=== PATIENT | female | born 1940 | race Caucasian/White ===

== ENCOUNTER → 2021-04-04 10:08 | Outpatient (BNVA) | payer MEDICARE, MEDICAID, SELFPAY | PROVIDERS: PCP Internal Medicine; Referring Provider Internal Medicine; Visit Provider Internal Medicine Cardiovascular Disease | DX: Z45.018 Encounter for adjustment and management of other part of cardiac pacemaker (principal) | CPT/HCPCS: 93005; 99212 ==

== ENCOUNTER 2022-04-25 10:53 | Outpatient (REF) | payer MEDICARE, MEDICAID, SELFPAY ==
[2022-04-25 11:10] LABS: MANUAL DIFF FLAG NO
[2022-04-25 11:18] LABS: Basophils Percent Auto 0.4 % (0-2); Eosinophils Absolute Auto 0.2 X10*3/uL (0.0-0.4); Eosinophils Percent Auto 1.7 % (0-4); Hematocrit 39.9 % (37.0-47.0); Hemoglobin 12.4 g/dl (12.0-16.0); Imm Gran Abs Auto 0.04 X10*3/uL (0.00-0.03); Imm Gran Pct Auto 0.4 % (0.0-0.4); Lymphocytes Absolute Auto 1.2 X10*3/uL (1.2-4.9); Lymphocytes Percent Auto 10.7 % (20-40); Mean Corpuscular HGB Conc 31.1 g/dl (31.0-35.0); Mean Corpuscular Hemoglobin 28.9 pg (27.0-33.0); Mean Platelet Volume 8.9 fL (9.4-12.3); Monocytes Absolute Auto 0.6 X10*3/uL (0.1-1.2); Monocytes Percent Auto 5.7 % (2-11); Neutrophils Absolute Auto 8.8 x10*3/uL (2.0-8.3); Neutrophils Percent Auto 81.1 % (45-73); Platelet Count 293 X10*3/uL (160-400); Red Blood Count 4.29 X10*6/uL (4.20-5.50); Red Cell Distribution Width 13.3 % (11.0-16.0); White Blood Count 10.8 X10*3/uL (4.8-10.8)
[2022-04-25 11:54] LABS: Anion Gap 11 (12-20); Blood Urea Nitrogen 18 mg/dL (9-16); Calcium 9.3 mg/dL (8.4-10.2); Carbon Dioxide 24 mmol/L (22-29); Chloride 104 mmol/L (96-108); Cholesterol 264 mg/dL; Estimated Glomerular Filt Rate > 60; Glucose Random 252 mg/dL (60-115); HDL Cholesterol 64 mg/dL; LDL Cholesterol Calculated 168 mg/dl; Potassium 3.3 mmol/L (3.3-5.1); Sodium 136 mmol/L (135-145); Triglycerides 161 mg/dL
[2022-04-25 12:03] LABS: TSH reflex Free T4 4.57 uIU/mL (0.32-4.0)
[2022-04-25 12:44] LABS: Free T4 (Free Thyroxine) 1.07 ng/dL (0.71-1.85)
== END 2022-04-25 10:54 | disposition home or self-care (01) ==
LOC: HO.LAB 10:53
PROVIDERS: PCP Internal Medicine; Visit Provider Nurse Practitioner Family
DX: E78.00 Pure hypercholesterolemia, unspecified (principal); J45.909 Unspecified asthma, uncomplicated; I10 Essential (primary) hypertension; E03.9 Hypothyroidism, unspecified
CPT/HCPCS: 36415; 80048; 80061; 84439; 84443; 85025

== ENCOUNTER → 2023-09-15 23:59 | Outpatient (BNV) | payer MEDICARE, MEDICAID, SELFPAY ==
--- NOTE | 2023-09-21 08:29 | A.OFFVIS_ITS ---
Intake Intake Visit Reasons: Remote Device Check- [employer] Allergies benztropine [From Cogentin] Allergy (Mild, Verified 04/28/23 11:05) UNKNOWN cogentin Allergy (Unknown, Uncoded 04/28/23 11:05) Unknown [facility] Medical History Asthma Bipolar disorder Cardiac pacemaker in situ Complete heart block Essential hypertension Hypercholesterolemia Impaired glucose tolerance Osteoporosis Peripheral vascular disease Rheumatoid arthritis Surgical History H/O right knee surgery History of cataract surgery History of permanent cardiac pacemaker placement Hx of colonoscopy Hx of elbow surgery Hx of tonsillectomy Family History Father No problems noted. Mother CVD (cardiovascular disease) Arthritis Social History Alcohol intake: never Patient Tobacco Use Status: Never used Tobacco Cognitive needs: Yes (wheelchair) Hearing needs: No Vision needs: No Office Procedures Cardiac Device Check Cardiac Device Check Details: Remote pacemaker report generated 09/15/2023. Pacemaker function is adequate. Patient ventricularly pacer dependent [id number] Cardiac Device Interrogation, pacemaker Procedure code (CPT) selection complete Coding Level of Care Code Procedure Only CPT Codes Cardiac Device Check - Cardiac Device 12: [id number] Cardiac Device Interrogation, pacemaker ([id number])
== END ==
PROVIDERS: PCP Internal Medicine; Visit Provider Internal Medicine Cardiovascular Disease
DX: I44.2 Atrioventricular block, complete (principal); Z95.0 Presence of cardiac pacemaker
CPT/HCPCS: 93294

== ENCOUNTER → 2023-12-16 23:59 | Outpatient (BNV) | payer MEDICARE, MEDICAID, SELFPAY ==
--- NOTE | 2023-12-16 12:59 | MHC.OFFVIS ---
Intake Intake Visit Reasons: Remote Device Check- [employer] Allergies benztropine [From Cogentin] Allergy (Mild, Verified 04/28/23 11:05) UNKNOWN cogentin Allergy (Unknown, Uncoded 04/28/23 11:05) Unknown [facility] Medical History Asthma Bipolar disorder Cardiac pacemaker in situ Complete heart block Essential hypertension Hypercholesterolemia Impaired glucose tolerance Osteoporosis Peripheral vascular disease Rheumatoid arthritis Surgical History H/O right knee surgery History of cataract surgery History of permanent cardiac pacemaker placement Hx of colonoscopy Hx of elbow surgery Hx of tonsillectomy Family History Father No problems noted. Mother CVD (cardiovascular disease) Arthritis Social History Alcohol intake: never Patient Tobacco Use Status: Never used Tobacco Cognitive needs: Yes (wheelchair) Hearing needs: No Vision needs: No Office Procedures Cardiac Device Check Cardiac Device Check Details: Remote pacemaker report generated 12/16/2023. Pacemaker function is adequate. Patient is ventricularly pacer dependent [id number] Cardiac Device Interrogation, pacemaker Procedure code (CPT) selection complete Assessment & Plan Assessment & Plan (1) Cardiac pacemaker in situ: Code(s): Z95.0 - Presence of cardiac pacemaker Plan: See above Coding Level of Care Code Procedure Only Diagnoses Cardiac pacemaker in situ Z95.0 CPT Codes Cardiac Device Check - Cardiac Device 12: [id number] Cardiac Device Interrogation, pacemaker ([id number])
== END ==
PROVIDERS: PCP Internal Medicine; Visit Provider Internal Medicine Cardiovascular Disease
DX: I44.2 Atrioventricular block, complete (principal); Z95.0 Presence of cardiac pacemaker
CPT/HCPCS: 93294

== ENCOUNTER 2024-03-12 09:23 | Inpatient (IN) | payer MEDICARE, MEDICAID, SELFPAY ==
[2024-03-12] VITALS (15 sets, daily range): BP systolic 40–168; BP diastolic 23–94; PULSE 71–113; RESP 12–18; TEMP 36.1–36.8; O2SAT 83–100; BMI 17.6
--- NOTE | ~2024-03-12 | CT_ITS ---
EXAMINATION: CT KNEE WITHOUT CONTRAST, LEFT CLINICAL INFORMATION: Left knee pain. Question tibial fracture. COMPARISON: Radiographs of the knee from 03/12/2024 TECHNIQUE: Noncontrast multidetector CT imaging examination focused on the left knee is performed. The axial images and multiplanar reformatted images are reviewed. This CT examination was performed using dose optimization techniques as appropriate, variously including the following: *Automated exposure control *Adjustment of mA and/or kV according to patient size (this includes techniques or standardized protocols for targeted exams where dose is matched to indication/reason for exam; i.e. extremities or head) *Use of iterative reconstruction technique DLP: 213 mGy-cm FINDINGS: Bones are diffusely osteoporotic. Acute, mildly comminuted, mildly depressed fracture of lateral tibial plateau. There is approximately 0.5 cm of depression of the plateau surface at the lateral third of the lateral plateau with identification of fracture lines disrupting the metaphyseal cortex. Associated mildly comminuted, nondisplaced fracture of the fibular head and neck. Tibial fracture extends through the intercondylar eminence and into the articular surface at junction of the medial plateau and intercondylar eminence. Mild impaction of fragments through the region of proximal tibial growth plate as well as posteriorly, and there is mild overriding of tibial cortex at the posterior and medial aspect of the medial metaphysis. Moderate joint effusion with hemarthrosis. Patella is in normal position. No patellar fracture. Cruciate ligaments are grossly intact there are no displaced intra-articular bone fragments. A well-corticated ossific fragment at the posterior third of the medial tibial plateau is consistent with old injury. CT/CT knee LT wo IV con IMPRESSION: * Diffuse osteoporosis. * Acute comminuted fracture of proximal tibia involving medial and lateral tibial condyles/plateaus, moderate hemarthrosis, as well as nondisplaced mildly comminuted fracture of fibular head-neck. There is mild depression of the lateral plateau surface.
--- NOTE | ~2024-03-12 | XR_ITS ---
EXAMINATION: XR PELVIS CLINICAL INFORMATION: Fall COMPARISON: Pelvis x-ray from 2008 TECHNIQUE: AP view of the pelvis. FINDINGS: No fracture. Hip joint spaces are maintained. Alignment is anatomic. Sacroiliac joints and pubic symphysis are normal. No abnormal soft tissue calcifications. Degenerative changes of the lower lumbar spine. XR/XR pelvis 1-2V IMPRESSION: No fracture or dislocation.
--- NOTE | ~2024-03-12 | CT_ITS ---
EXAMINATION: CT ANGIOGRAM OF THE CHEST WITH AND WITHOUT CONTRAST (CT PULMONARY ANGIOGRAM FOR PE) CLINICAL INFORMATION: Shortness of breath. COMPARISON: Chest radiograph dated 03/12/2024. TECHNIQUE: Prior to contrast administration, noncontrast localization images were obtained. Subsequently, multidetector volumetric imaging was performed from the thoracic inlet to below the diaphragms following the administration of 65 mL Omnipaque 350 intravenous contrast. No contrast reaction reported Sagittal, coronal, and MIP oblique sagittal reformatted images were obtained on the CT workstation, uploaded to PACS, and reviewed. This CT examination was performed using dose optimization techniques as appropriate, variously including the following: *Automated exposure control *Adjustment of mA and/or kV according to patient size (this includes techniques or standardized protocols for targeted exams where dose is matched to indication/reason for exam; i.e. extremities or head) *Use of iterative reconstruction technique Total exam dose-length product 200 mGy-cm FINDINGS: QUALITY OF STUDY/CONTRAST BOLUS: Satisfactory. PULMONARY ARTERIES: No pulmonary emboli. THORACIC AORTA: No aneurysm or dissection is seen. There is moderate atherosclerotic calcification. LUNG: There is mild biapical pleural and parenchymal scarring. There is focal scar/subsegmental atelectasis at the posterior bases, right greater than left. No associated focal airway obstruction is seen. There is no nodule, mass, infiltrate or groundglass opacity. No generalized increase is seen in peripheral interlobular septal markings. There is mild small airway thickening. The central airways appear patent. PLEURA: No pleural effusion or pneumothorax. There is moderate right and mild left posterolateral pleural thickening, without focal mass noted. MEDIASTINUM: There is mild cardiomegaly. A pacemaker device is noted. No pericardial effusion. No hilar or mediastinal lymphadenopathy. No evidence of septal bowing or right heart strain. CORONARY ARTERY CALCIFICATION: None visualized on this study. CHEST WALL/AXILLA: No axillary or internal mammary lymphadenopathy. OSSEOUS STRUCTURES: There is marked thoracic dextroscoliosis. There is multi-level lower cervical, thoracic and upper lumbar degenerative disc disease and endplate arthropathy. No acute or aggressive osseous finding is noted. Orthopedic hardware is applied to the right elbow. UPPER ABDOMEN: The adrenal glands are unremarkable. A benign, simple appearing left parapelvic cyst is noted. No reflux of contrast into the hepatic veins to suggest elevated right heart pressures. CT/CT angio chest PE protocol IMPRESSION: 1. No pulmonary embolus is seen. There is no thoracic aortic aneurysm or dissection. 2. There are bilateral lower lobe foci of pleural and parenchymal scar/subsegmental atelectasis, right greater than left. No associated focal airway obstruction is seen. 3. No nodule, mass, infiltrate or groundglass opacity is seen. 4. There is mild small airway thickening, which can be associated with acute bronchiolitis or reactive airways disease. 5. No thoracic lymphadenopathy or pleural effusion is seen. 6. There are degenerative changes of the included spine. No aggressive osseous lesion is seen. VTE: negative
--- NOTE | ~2024-03-12 | XR_ITS ---
EXAMINATION: XR KNEE, LEFT CLINICAL INFORMATION: Fall COMPARISON: None available. TECHNIQUE: Two views of the left knee. FINDINGS: Exam limited due to patient positioning. There is valgus angulation. The bones are osteopenic. There is cortical step-off of the medial tibial metaphysis questionable for nondisplaced fracture. There is also increased sclerosis of the lateral tibial plateau and it is difficult to exclude lateral tibial plateau fracture. Joint spaces are normal. There is a small to moderate joint effusion. XR/XR knee LT 2V IMPRESSION: Question tibial fractures. Osteopenia. Valgus angulation. Small to moderate joint effusion..
--- NOTE | ~2024-03-12 | XR_ITS ---
EXAMINATION: XR ABDOMEN KUB CLINICAL INDICATION: Nausea and vomiting, rule out ileus COMPARISON: None available. TECHNIQUE: AP view of the abdomen. FINDINGS: There is no dilatation of large or small bowel. There is a large amount of stool within the descending and rectosigmoid colon. No unusual soft tissue calcifications are noted. Degenerative changes are seen in the lower lumbar spine. There is marked compression of the L2 vertebral body. There is linear density in the left lung base most likely representing atelectasis. XR/XR KUB IMPRESSION: No obstruction or ileus.
--- NOTE | ~2024-03-12 | XR_ITS ---
EXAMINATION: XR CHEST CLINICAL INFORMATION: Hypoxia COMPARISON: None available. TECHNIQUE: Frontal view of the chest was obtained. FINDINGS: The cardiac silhouette does not appear enlarged. Left subclavian pacemaker with leads projecting over the right atrium and right ventricle. The lungs are clear. No pleural effusion or pneumothorax. Degenerative changes of the spine and shoulders and scoliosis. XR/XR chest 1V IMPRESSION: No evidence for acute disease in the chest.
--- NOTE | 2024-03-12 09:45 | PC.NURSE ---
willyara from home d/t LLE pain. pt was moving out of her home today when she was walking out of the house, started having sudden onset 10/10 pain from left hip to left heel. pt also verbalizing numbness/tingling. pt's extremities contracted in nature baseline. pt states pain worsens w/ movement. family members lowered pt to the ground prior to calling EMS. no fall occurred. pt changed into hospital attire. no sob/wob noted. respirations even and unlabored. pt waiting to be seen by ED provider at this time. plan of care ongoing. call florence placed within reach.
[2024-03-12 10:45] LABS: MANUAL DIFF FLAG NO
[2024-03-12 10:55] LABS: Basophils Percent Auto 0.5 % (0-2); Eosinophils Absolute Auto 0.1 X10*3/uL (0.0-0.4); Eosinophils Percent Auto 1.1 % (0-4); Hematocrit 34.4 % (37.0-47.0); Hemoglobin 10.8 g/dl (12.0-16.0); Imm Gran Abs Auto 0.03 X10*3/uL (0.00-0.03); Imm Gran Pct Auto 0.4 % (0.0-0.4); Lymphocytes Absolute Auto 1.2 X10*3/uL (1.2-4.9); Lymphocytes Percent Auto 13.8 % (20-40); Mean Corpuscular HGB Conc 31.4 g/dl (31.0-35.0); Mean Corpuscular Hemoglobin 25.9 pg (27.0-33.0); Mean Corpuscular Volume 82.5 fL (80.0-98.0); Mean Platelet Volume 8.7 fL (9.4-12.3); Monocytes Absolute Auto 0.4 X10*3/uL (0.1-1.2); Neutrophils Absolute Auto 6.7 x10*3/uL (2.0-8.3); Neutrophils Percent Auto 79.2 % (45-73); Platelet Count 295 X10*3/uL (160-400); Red Blood Count 4.17 X10*6/uL (4.20-5.50); Red Cell Distribution Width 16.1 % (11.0-16.0); White Blood Count 8.4 X10*3/uL (4.8-10.8)
[2024-03-12 11:05] LABS: Alanine Aminotransferase 8 U/L (0-31); Albumin Level 3.7 g/dL (3.5-5.0); Alkaline Phosphatase 91 U/L (39-117); Anion Gap 12 (12-20); Aspartate Amino Transferase 17 U/L (5-31); Bilirubin Total 0.4 mg/dL (0.0-1.0); Blood Urea Nitrogen 14 mg/dL (9-16); Calcium 9.1 mg/dL (8.4-10.2); Carbon Dioxide 26 mmol/L (22-29); Chloride 109 mmol/L (96-108); Creatinine Clr Calc Pharmacy 39.5; Estimated Glomerular Filt Rate > 60; Glucose Random 95 mg/dL (60-115); Potassium 4.1 mmol/L (3.3-5.1); Sodium 143 mmol/L (135-145); Total Protein 7.1 g/dL (6.5-8.0)
--- NOTE | 2024-03-12 11:08 | ED_ITS ---
HPI - General Adult General Chief complaint: Extremity Injury, Lower Stated complaint: L LEG PAIN Time Seen by Provider: 03/12/24 10:53 Source: family (deborah herrmann ) Mode of arrival: ambulatory Limitations: no limitations History of Present Illness HPI narrative: 83 year old female hx cerebral palsy, complete heart block status post pacemaker in place, hypertension, RA, bipolar, asthma presents w/ deborah herrmann s/p witnessed fall on steps patient missed footing great niece behind her lowered her down. She sat on her left foot/ leg. Now reporting significant discomfort to L kene and L hip. Worse w/ movement better at rest. Reports intermittent tingling however denies numbness. No head strike or LOC. Not on thinenrs just asa. No cp, sob, nausea, vomiting, abd pain, headache, vission changes, dizziness, weakness or preceding sx to fall. Related Data Previous Rx's ?Medication ?Instructions ?Recorded fluticasone 250 mcg-salmeterol 50 1 ea inhalation BID #180 caps 04/25/22 mcg/dose blistr powdr for inhalation (Advair Diskus) albuterol sulfate 90 mcg/actuation 2 puff inhalation Q6H PRN for 05/27/22 aerosol inhaler muscle spasm #8.5 ea aspirin 81 mg tablet,delayed 81 mg PO DAILY #30 tabs 05/27/22 release diclofenac sodium 1 % topical gel 2 g topical QID #100 grams 04/28/23 (Voltaren Arthritis Pain) montelukast 10 mg tablet 10 mg PO DAILY #90 tabs 05/05/23 verapamil 180 mg tablet,extended 180 mg PO DAILY #180 tabs 02/10/24 release Allergies Allergy/AdvReac Type Severity Reaction Status Date / Time benztropine [From Cogentin] Allergy Mild UNKNOWN Verified 03/12/24 09:39 cogentin Allergy Unknown Unknown Uncoded 03/12/24 09:39 Review of Systems 2 Review of Systems: Yes all other systems are reviewed and are negative [facility] Past Medical History Attestation statement: The following information was validated with the patient. Source: old records reviewed and nursing notes reviewed Medical History Peripheral vascular disease Essential hypertension Impaired glucose tolerance Rheumatoid arthritis Hypercholesterolemia Osteoporosis Bipolar disorder Asthma Complete heart block Cardiac pacemaker in situ Surgical History History of cataract surgery H/O right knee surgery Hx of tonsillectomy Hx of elbow surgery Hx of colonoscopy History of permanent cardiac pacemaker placement Family History Family History Father No problems noted. Mother CVD (cardiovascular disease) Arthritis Social History Social History Alcohol intake: never Patient Tobacco Use Status: Never used Tobacco Smoked in Last 30 Days: No Use of substances other than those prescribed or required for medical reasons: No Advance Directives: No Advance Directives Information Provided: No Cognitive needs: Yes (wheelchair) Hearing needs: No Vision needs: No Physical Exam ED Vital Signs: Vital Signs - 24 hr 03/12/24 09:35 03/12/24 11:46 03/12/24 14:09 Temperature 98.0 F 98.2 F 97.9 F Pulse Rate 91 96 82 Respiratory Rate 16 18 18 Blood Pressure 154/78 H 120/72 124/82 Pulse Oximetry 95 94 89 L Oxygen Delivery Method Room Air Room Air Room Air Oxygen Flow Rate 03/12/24 15:03 03/12/24 15:05 03/12/24 15:10 Temperature Pulse Rate 105 H Respiratory Rate Blood Pressure 40/23 L 50/27 L 88/40 L Pulse Oximetry 83 L Oxygen Delivery Method Oxymask Oxygen Flow Rate 15 03/12/24 15:10 03/12/24 15:13 03/12/24 15:13 Temperature 97.0 F Pulse Rate 105 H 71 Respiratory Rate 12 14 Blood Pressure 88/40 L 87/46 L Pulse Oximetry 94 94 Oxygen Delivery Method Oxymask Oxymask Oxygen Flow Rate 11 11 03/12/24 15:40 03/12/24 15:41 Temperature Pulse Rate 97 87 Respiratory Rate 13 15 Blood Pressure 81/43 L 101/54 L Pulse Oximetry 98 98 Oxygen Delivery Method Oxymask Oxymask Oxygen Flow Rate 2 2 BMI result Body Mass Index 17.6 vss Appearance: Alert.? Oriented X3.? No acute distress.? Head: Normocephalic, atraumatic, no step-offs or deformities Eyes: Pupils equal, round and reactive to light.? Neck: Normal inspection.? Neck supple.? CVS: Normal heart rate and rhythm.? Pulses normal.? Respiratory: No respiratory distress.? Breath sounds normal.? Abdomen: Soft and nontender.? Skin: Skin warm and dry.? Normal skin color.? Normal skin turgor.? Extremities: No lower extremity edema.?No calf ttp. Global weakness. 2+ DP,AT,PT, and femoral pulses equal and b/l. Slight ecchymosis overlying left knee with ? small effusion. Normal sensation distally. Cap refil intact to b/l LE. Patients LE b/l contracted ( per family this is normal for patient). Back: No midline tenderness, no C-spine tenderness, full range of motion, no CVA tenderness bilaterally Neuro: Oriented X 3.? No motor deficit.? No sensory deficit. CN 2-12 intact Course Reevaluation(s) Reevaluation #1: CBC with a normocytic anemia. Chemistry unremarkable. Troponin 6.1. Time: 11:10 Reevaluation #2: Patient was screaming in pain after morphine IV fentanyl ordered Time: 13:20 Reevaluation #3: Patient had a few episodes of hypoxia, followed by profound hypotension, this could be secondary to morphine, therefore Narcan was given. X-ray of the pelvis no acute fractures. X-ray of the knee with question tibial fractures osteopenia and valgus angulation. Small to moderate joint effusion. CT dedicated to the knee ordered and pending. Chest x-ray pending. Time: 15:11 Additional Reevaluation(s): CT of the knee acute comminuted fracture proximal tibia involving medial and lateral tibial condyles and plateau, moderate arthrosis as well as nondisplaced mildly comminuted fracture of the fibular head/neck there is mild depression of the lateral plateau surface. Palpable pulses still. Patient doing much better after Narcan. I did send a tiger text out to Orthopedics. I do see challenges and applying an immobilizer as patient is contracted at baseline. Orthopedics recommends nonweightbearing and outpatient follow-up. I did repeated troponin on this patient given the episode of hypoxia and hypotension, troponin elevated 99.9 likely secondary to demand ischemia/type 2 injury. Will reach out to Cardiology to discuss. Discuss this case with cardiology Cardiology agrees this is likely demand ischemia. Also discussed this case with hospitalist who would feel more comfortable with CTA prior to admission. Patient will be admitted to the hospital and ortho can be consulted. Patient to be admitted Dr. Phillips will follow CTA Medications Administered Discontinued Medications Generic Name Dose Route Start Last Admin Trade Name Karen PRN Reason Stop Dose Admin Fentanyl 25 mcg 03/12/24 13:20 03/12/24 13:34 Fentanyl Citrate/Pf 100 Mcg/2 Ml Vial IVPUSH 03/12/24 13:21 25 mcg ONCE ONE Administration Protocol Lidocaine 1 patch 03/12/24 11:13 03/12/24 11:45 Lidocaine 4 % Patch Adh..Patch TRANSDERMA 03/12/24 11:14 1 patch ONCE ONE Administration Protocol Morphine Sulfate 15 mg 03/12/24 11:13 03/12/24 11:45 Morphine Sulfate Immed Release 15 Mg Tablet PO 03/12/24 11:14 15 mg ONCE ONE Administration Medical Decision Making Medical Decision Making [facility] Narrative: 1113 83-year-old female presents with complaints of left knee and hip pain status post mechanical fall. Physical exam No lower extremity edema.?No calf ttp. Global weakness. 2+ DP,AT,PT, and femoral pulses equal and b/l. Slight ecchymosis overlying left knee with ? small effusion. Normal sensation distally. Cap refil intact to b/l LE. Patients LE b/l contracted ( per family this is normal for patient). History and physical exam concerning for contusion versus sprain or strain. Will rule out fracture/dislocation. No signs of neurovascular compromise, threat to Mari, arterial or venous occlusion. No signs of traumatic injury to head, neck, chest, abdomen or pelvis. Plan imaging Differential Diagnosis Differential Diagnoses: The differential diagnosis associated with the presentation includes History and physical exam concerning for contusion versus sprain or strain. Will rule out fracture/dislocation. No signs of neurovascular compromise, threat to Mari, arterial or venous occlusion. No signs of traumatic injury to head, neck, chest, abdomen or pelvis. Admission/Observation Consideration of admission/observation: Escalation of care including admission/observation considered Lab Data [facility] Lab Attestation statement: I reviewed the patient's lab results. 03/12/24 10:42 03/12/24 10:42 Labs: Lab Results 03/12/24 03/12/24 03/12/24 Range/Units 10:42 14:45 14:51 WBC 8.4 (4.8-10.8) X10*3/uL RBC 4.17 L (4.20-5.50) X10*6/uL Hgb 10.8 L (12.0-16.0) g/dl Hct 34.4 L (37.0-47.0) % MCV 82.5 (80.0-98.0) fL MCH 25.9 L (27.0-33.0) pg MCHC 31.4 (31.0-35.0) g/dl RDW 16.1 H (11.0-16.0) % Plt Count 295 (160-400) X10*3/uL MPV 8.7 L (9.4-12.3) fL Immature Gran % (Auto) 0.4 (0.0-0.4) % Neut % (Auto) 79.2 H (45-73) % Lymph % (Auto) 13.8 L (20-40) % Mcclain % (Auto) 5.0 (2-11) % Eos % (Auto) 1.1 (0-4) % Baso % (Auto) 0.5 (0-2) % Lymph # (Auto) 1.2 (1.2-4.9) X10*3/uL Mcclain # (Auto) 0.4 (0.1-1.2) X10*3/uL Eos # (Auto) 0.1 (0.0-0.4) X10*3/uL Baso # (Auto) 0.0 (0.0-0.2) X10*3/uL Abs Immat Gran (auto) 0.03 (0.00-0.03) X10*3/uL Absolute Neuts (auto) 6.7 (2.0-8.3) x10*3/uL Absolute Nucleated RBC 0.000 (0.0-0.012) X10*3/uL Nucleated RBC % (auto) 0.0 (0.0-0.2) /100WBC Sodium 143 (135-145) mmol/L Potassium 4.1 (3.3-5.1) mmol/L Chloride 109 H (96-108) mmol/L Carbon Dioxide 26 (22-29) mmol/L Anion Gap 12 (12-20) BUN 14 (9-16) mg/dL Creatinine 0.74 (0.5-1.4) mg/dL Estim Creat Clear Calc 39.5 Estimated GFR > 60 POC Glucose 201 H (60-115) mg/dL Random Glucose 95 (60-115) mg/dL Calcium 9.1 (8.4-10.2) mg/dL Total Bilirubin 0.4 (0.0-1.0) mg/dL AST 17 (5-31) U/L ALT 8 (0-31) U/L Alkaline Phosphatase 91 (39-117) U/L Troponin I High Sens 6.1 (<3.5-17.0) ng/L Total Protein 7.1 (6.5-8.0) g/dL Albumin 3.7 (3.5-5.0) g/dL Influenza Type A (PCR) NEGATIVE (Negative) Influenza Type B (PCR) NEGATIVE (Negative) RSV RNA Qual (PCR) NEGATIVE (Negative) SARS-CoV-2 RNA (RT-PCR) NEGATIVE (Negative) 03/12/24 Range/Units 15:56 WBC (4.8-10.8) X10*3/uL RBC (4.20-5.50) X10*6/uL Hgb (12.0-16.0) g/dl Hct (37.0-47.0) % MCV (80.0-98.0) fL MCH (27.0-33.0) pg MCHC (31.0-35.0) g/dl RDW (11.0-16.0) % Plt Count (160-400) X10*3/uL MPV (9.4-12.3) fL Immature Gran % (Auto) (0.0-0.4) % Neut % (Auto) (45-73) % Lymph % (Auto) (20-40) % Mcclain % (Auto) (2-11) % Eos % (Auto) (0-4) % Baso % (Auto) (0-2) % Lymph # (Auto) (1.2-4.9) X10*3/uL Mcclain # (Auto) (0.1-1.2) X10*3/uL Eos # (Auto) (0.0-0.4) X10*3/uL Baso # (Auto) (0.0-0.2) X10*3/uL Abs Immat Gran (auto) (0.00-0.03) X10*3/uL Absolute Neuts (auto) (2.0-8.3) x10*3/uL Absolute Nucleated RBC (0.0-0.012) X10*3/uL Nucleated RBC % (auto) (0.0-0.2) /100WBC Sodium (135-145) mmol/L Potassium (3.3-5.1) mmol/L Chloride (96-108) mmol/L Carbon Dioxide (22-29) mmol/L Anion Gap (12-20) BUN (9-16) mg/dL Creatinine (0.5-1.4) mg/dL Estim Creat Clear Calc Estimated GFR POC Glucose (60-115) mg/dL Random Glucose (60-115) mg/dL Calcium (8.4-10.2) mg/dL Total Bilirubin (0.0-1.0) mg/dL AST (5-31) U/L ALT (0-31) U/L Alkaline Phosphatase (39-117) U/L Troponin I High Sens 99.9 H* D (<3.5-17.0) ng/L Total Protein (6.5-8.0) g/dL Albumin (3.5-5.0) g/dL Influenza Type A (PCR) (Negative) Influenza Type B (PCR) (Negative) RSV RNA Qual (PCR) (Negative) SARS-CoV-2 RNA (RT-PCR) (Negative) Independent Interpretation I performed an independent interpretation of an: EKG (Ventricularly paced rhythm heart rate 114, ID varies, QRS normal, QT/QTC slightly prolonged. No ST elevations or inversions concerning for ischemia), Plain X-Ray (XR/XR chest 1V IMPRESSION: No evidence for acute disease in the chest. ) and CT Scan (CT/CT knee LT wo IV con IMPRESSION: * Diffuse osteoporosis. * Acute comminuted fracture of proximal tibia involving medial and lateral tibial condyles/plateaus, moderate hemarthrosis, as well as nondisplaced mildly comminuted fracture of fibular head-neck. There is mild depression of the lateral ) Radiology Impression Discussion of test interpretation with radiology: I have reviewed the radiologist's reading. Critical Care Time Critical Care Time Critical Care Time: Yes Total Critical Care Time: 45 Attestation: I attest to this time spent taking care of the patient, obtaining history, physical, reviewing labs, imaging, speaking to my attending, specialist or hospitalist. Discharge Plan Discharge Clinical Impression: Fracture, tibia, Fall, Hypoxic episode Patient Disposition: Admitted As Inpatient Print Language: Wallisian
[2024-03-12] MEDS: Lidocaine 4 % Patch ADH..PATCH 1 PATCH TRANSDERMA (11:45)
[2024-03-12] MEDS: Morphine Sulfate Immed Release 15 MG TABLET PO (11:45)
--- NOTE | 2024-03-12 12:01 | PC.NURSE ---
medication administered per provider order. lidocaine patch applied to pt's left hip. effectiveness pending. pt continues to wait for xray to be taken at this time. resting comfortably w/ the lights dimmed. respirations remain even and unlabored. plan of care ongoing. call florence placed within reach.
--- NOTE | 2024-03-12 12:10 | PC.NURSE ---
pt to xray at this time.
--- NOTE | 2024-03-12 13:02 | PC.NURSE ---
pt rating pain level a 9/10 despite medication administration. pt verbalizes no effectiveness. pt laying supine to promote comfort as she states that pain increases w/ movement. ED provider notified/aware that medication did not provide relief. pt continues to wait for xray results at this time. respirations remain even and unlabored. plan of care ongoing. call florence placed within reach.
[2024-03-12] MEDS: fentaNYL citrate/PF 100 MCG/2 ML VIAL 25 MCG IVPUSH (13:34)
--- NOTE | 2024-03-12 13:36 | PC.NURSE ---
pt yelling out loud d/t increase in pain. 20gIVplaced in the right forearm. medication administered per provider order. effectiveness pending. plan of care ongoing. call florence placed within reach.
--- NOTE | 2024-03-12 14:17 | PC.NURSE ---
pt to CT at this time.
[2024-03-12 14:55] LABS: Glucose, Whole Blood 201 mg/dL (60-115)
[2024-03-12 14:58] LABS: Troponin-I High Sensitivity 6.1 ng/L (<3.5-17.0)
--- NOTE | 2024-03-12 14:58 | ECG_ITS ---
Test Reason : AMS Blood Pressure : / mmHG Vent. Rate : 114 BPM Atrial Rate : 156 BPM P-R Int : 000 ms QRS Dur : 142 ms QT Int : 432 ms P-R-T Axes : 000 257 075 degrees QTc Int : 595 ms Atrial sensed Ventricular-paced rhythm Abnormal ECG When compared with ECG of 05-OCT-2019 13:25, Vent. rate has increased BY 36 BPM Referred By: Dulce Castro Electronically Signed By:Brad Crowe
--- NOTE | 2024-03-12 15:32 | PC.NURSE ---
this RN went to reassess medication administration effectiveness and upon entry, BP on the monitor displayed that the pt was hypotensive in the 40s systolically in LUE. when attempting to speak to the pt, in was noted that the pt had a change in AMS and was nonresponsive to verbal/physical stimuli. pt unable to follow commands appropriately. pt's skin cool to the touch and diaphoretic. POC obtained displaying 201mg/dL. repeat BP obtained on RUE displaying 50s systolically. 2nd IV initiated. 20gIV placed in the left forearm. 2L NS hung to pressure bags. pt sinus tachy on the clinical research monitor - 110s bpm. pt displayed w/ mid 80s on RA. pt transferred to ED5 at this time. pt placed on oxymask at 15L/min - 100%. narcan administered per dr. wild verbal order. pt more alert/responsive to physical stimuli post medication administration. oxymask decreased to 11L/min - 98%. report given to BILL Ross. plan of care ongoing at this time.
[2024-03-12 15:40] LABS: Influenza A PCR NEGATIVE (Negative); Influenza B PCR NEGATIVE (Negative); Resp Syncy Virus RNA Qual PCR NEGATIVE (Negative); SARS COV2 PCR INHOUSE NEGATIVE (Negative)
--- NOTE | 2024-03-12 15:43 | PC.NURSE ---
PT MOVED INTO ED BED 4 AFTER BECOMING UNRESPONSIVE, HYPOXIC AND HYPOTENSIVE IN ANOTHER ED ROOM. PT GIVEN IN NARCAN 4 MG WITH GOOD EFFECT. BOTH PIVS INFILTRATED AFTER IVF PLACED ON PRESSURE BAGS. #18 & #20 NEWLY PLACED IN LFA. PT COOL TO TOUCH, RECTAL TEMP WNL. PT CURRENTLY A&OX4, PACED ON MONITOR IN HIGH 90S, LOW 100S, ON 2L SUPPLEMENTAL O2, BP STABILIZING, MAP NEWLY >60, ++ PERIPHERAL PULSES. IVF STILL INFUSING. PT UNABLE TO BE MOVED WITHOUT SEVERE PAIN IN L LEG AND HIP. AWAITING CT RESULTS.
[2024-03-12 16:27] LABS: Troponin-I High Sensitivity 99.9 ng/L (<3.5-17.0)
--- NOTE | 2024-03-12 17:35 | PHA.MEDREC ---
Pharmacy Consult ? Medication Reconciliation Pharmacy has completed the medication reconciliation. spoke with great mercedes who knew patients medications. She reports that patient had none today.
[2024-03-12] MEDS: iohexoL 350 MG/ML 100 ML INFUS..BTL IV (17:53)
--- NOTE | 2024-03-12 18:35 | MHC.EDTECH ---
1800 rounding done ,vitals taken ,Per Provider Pure wick was Placed ,patient was Position with Pillow underneath leg , and boosted up in bed ,Patient asked for some water Provider said it was fine ,Patient drank 240 ml water ,Patient belonings list done ,Patient is comfortable at this time no Pain Patient great neice at bedside ,Call florence within Pt reach .
--- NOTE | 2024-03-12 19:22 | PM.IMHP ---
History of Present Illness Date of Service: 03/12/24 Attending physician on admission: Wu Ford Chief Complaint: Left leg pain s/p fall at home Pt is an 83-year-old female with a PMH significant for?cerebral palsy, complete heart block s/p pacemaker in place, moderate persistent asthma, rheumatoid arthritis, bipolar disorder who presents to the ED for evaluation of left leg pain after witnessed mechanical fall at home. Patient states that she was walking on her front door to go to the car when she missed her footing on the 1st step and her knee buckled. Her niece was right beside her who caught her and lowered her to the ground. Denies falling to the ground or trauma to the left knee. No prodrome of lightheadedness or dizziness. Patient had intense left knee pain and was unable to stand up or bear weight on left leg. Called EMS to bring to the ED for further evaluation. Patient reports a long history of chronic problems with her left hip, thigh, and leg. Denies chest pain/pressure or palpitations. Has chronic shortness of breath perhaps slightly increased from baseline. Denies fever, chills, nausea, vomiting, abdominal pain. Patient not on home O2 in last hospitalized for asthma exacerbation over 5 years ago. In the ED pt was tachycardic up to 113 and hypotensive as low as 40/23, satting as low as 83% on RA. Labs were significant for initial troponin 6.1 with repeat 99.9, otherwise grossly unremarkable and baseline for patient. No leukocytosis. Stable H&H of 10.8/34.4. No significant electrolyte abnormalities. Renal and hepatic function WNL. Patient tested negative for influenza, RSV, and COVID. CXR showed no evidence for acute disease in the chest. X-ray of left knee showed question of tibial fractures, osteopenia, valgus angulation, and small to moderate joint effusion. Pelvis x-ray negative for acute fracture or dislocation. CT of left knee found diffuse osteoporosis and acute comminuted fracture of proximal tibia involving medial and lateral tibial condyles/plateaus, moderate hemarthrosis, as well as nondisplaced mildly comminuted fracture of fibular head/neck. CTA of chest negative for pulmonary embolus, thoracic aortic aneurysm or dissection. Did show bilateral lower lobe foci of pleural and parenchymal scar/subsegmental atelectasis, right greater than left. EKG demonstrated ventricularly paced rhythm of [address] elevations or depressions. Pt was treated with morphine, lidocaine, and fentanyl. Orthopedics was contacted and recommended nonweightbearing and outpatient follow-up. However, patient was noted to have episodes of profound hypotension in the ED, thought to be secondary to morphine and fentanyl. Responded well to Narcan. Cardiology was consulted for elevated troponins and thought likely to demand ischemia. Pt will be admitted to the hospital under observation for treatment and further evaluation of elevated troponins in the setting of acute left tibial and fibular fractures. Review of Systems Review of Systems: Mechanical fall at home Left leg and knee pain Chronic SOB mildly increased above baseline Denies chest pain/pressure, palpitations No lightheadedness or dizziness Denies fever, chills, nausea, vomiting, abdominal pain PMFSH Medical History Peripheral vascular disease Essential hypertension Impaired glucose tolerance Rheumatoid arthritis Hypercholesterolemia Osteoporosis Bipolar disorder Asthma Complete heart block Cardiac pacemaker in situ Family History Father No problems noted. Mother CVD (cardiovascular disease) Arthritis Surgical History History of cataract surgery H/O right knee surgery Hx of tonsillectomy Hx of elbow surgery Hx of colonoscopy History of permanent cardiac pacemaker placement Social History Alcohol intake: never Patient Tobacco Use Status: Never used Tobacco Smoked in Last 30 Days: No Use of substances other than those prescribed or required for medical reasons: No Advance Directives: No Advance Directives Information Provided: No Cognitive needs: Yes (wheelchair) Hearing needs: No Vision needs: No Meds Allergies Allergy/AdvReac Type Severity Reaction Status Date / Time benztropine [From Cogentin] Allergy Mild UNKNOWN Verified 03/12/24 09:39 cogentin Allergy Unknown Unknown Uncoded 03/12/24 09:39 Active Medications: Current Medications Acetaminophen (Acetaminophen 325 Mg Tablet) 650 mg PO Q6H PRN PRN Reason: Pain, Mild (Pain Scale 1-3) Enoxaparin Sodium (Enoxaparin Sodium 40 Mg/0.4 Ml Syringe) 40 mg SUBCUT Q24H CLAUDINE Albumin Human (Kedbumin 25 %) 100 mls @ 100 mls/hr IV Q1H [facility] Stop: 03/12/24 21:29 Melatonin (Melatonin 3 Mg Tablet) 6 mg PO BEDTIME PRN PRN Reason: Insomnia Ondansetron HCl (Ondansetron Hcl 4 Mg/2 Ml Vial) 4 mg IVPUSH Q8H PRN PRN Reason: Nausea and Vomiting Sodium Chloride (0.9 % Sodium Chloride Flush 3 Ml Syringe) 3 ml IVFLUSH QSHIFT [facility] Home Medications ?Medication ?Instructions ?Recorded ?Confirmed ?Last Taken ?Type aspirin 81 mg tablet,delayed 81 mg PO BEDTIME 03/12/24 03/12/24 Unknown History release diclofenac sodium 1 % topical gel 2 g topical QID PRN Pain 03/12/24 03/12/24 Unknown History (Voltaren Arthritis Pain) montelukast 10 mg tablet 10 mg PO BEDTIME 03/12/24 03/12/24 Unknown History verapamil 180 mg tablet,extended 180 mg PO DAILY 03/12/24 03/12/24 Unknown History release Physical Exam Vital Signs and Narrative: Vital Signs: Last Vital Signs Temp 98.0 F 03/12/24 18:25 Pulse 113 H 03/12/24 18:25 Resp 16 03/12/24 18:25 BP 91/48 L 03/12/24 18:25 Pulse Ox 100 03/12/24 18:25 O2 Del Method Oxymask 03/12/24 18:25 O2 Flow Rate 3 03/12/24 18:25 BMI result Body Mass Index 17.6 Constitutional: Alert, frail-looking, in no acute distress. Mental Status: Oriented to person, place and time. Eyes: Pupils are equal, round, and reactive to light. Ear, Nose, and Throat: Oropharynx clear, mucous membranes moist. Ears and nose without deformities. Trachea midline. Respiratory: Clear to auscultation bilaterally. No wheezing, rales, or rhonchi. Cardiovascular: S1, S2, tachy. No murmurs, rubs, or gallops. Gastrointestinal: Abdomen soft, non-tender, non-distended. Normal bowel sounds. Neurologic: Cranial nerves II-XII are grossly intact bilaterally. No focal neurological deficits. Moves all extremities spontaneously. Skin: Warm, dry. Extremities: No edema. Hands with severe rheumatoid arthritis degenerative changes bilaterally. Left lower extremity contracted and externally rotated at the knee. Small area of ecchymosis on left knee. ROM of left knee severely limited secondary to pain. Psychiatric: Normal mood and affect. Results Labs 03/12/24 10:42 03/12/24 10:42 Labs: Laboratory Results - last 24 hr 03/12/24 03/12/24 03/12/24 10:42 14:45 14:51 MCV 82.5 MCH 25.9 L MCHC 31.4 RDW 16.1 H Plt Count 295 MPV 8.7 L Immature Gran % (Auto) 0.4 Neut % (Auto) 79.2 H Lymph % (Auto) 13.8 L [place] % (Auto) 5.0 Eos % (Auto) 1.1 Baso % (Auto) 0.5 Lymph # (Auto) 1.2 [place] # (Auto) 0.4 Eos # (Auto) 0.1 Baso # (Auto) 0.0 Abs Immat Gran (auto) 0.03 Absolute Neuts (auto) 6.7 Absolute Nucleated RBC 0.000 Nucleated RBC % (auto) 0.0 Anion Gap 12 Estim Creat Clear Calc 39.5 Estimated GFR > 60 POC Glucose 201 H Random Glucose 95 Calcium 9.1 Total Bilirubin 0.4 AST 17 ALT 8 Alkaline Phosphatase 91 Troponin I High Sens 6.1 Total Protein 7.1 Albumin 3.7 Influenza Type A (PCR) NEGATIVE Influenza Type B (PCR) NEGATIVE RSV RNA Qual (PCR) NEGATIVE SARS-CoV-2 RNA (RT-PCR) NEGATIVE 03/12/24 15:56 MCV MCH MCHC RDW Plt Count MPV Immature Gran % (Auto) Neut % (Auto) Lymph % (Auto) [place] % (Auto) Eos % (Auto) Baso % (Auto) Lymph # (Auto) [place] # (Auto) Eos # (Auto) Baso # (Auto) Abs Immat Gran (auto) Absolute Neuts (auto) Absolute Nucleated RBC Nucleated RBC % (auto) Anion Gap Estim Creat Clear Calc Estimated GFR POC Glucose Random Glucose Calcium Total Bilirubin AST ALT Alkaline Phosphatase Troponin I High Sens 99.9 H* D Total Protein Albumin Influenza Type A (PCR) Influenza Type B (PCR) RSV RNA Qual (PCR) SARS-CoV-2 RNA (RT-PCR) Imaging Radiologist's Impressions: Impressions Knee X-Ray 03/12/24 12:20 IMPRESSION: Question tibial fractures. Osteopenia. Valgus angulation. Small to moderate joint effusion.. Pelvis X-Ray 03/12/24 12:20 IMPRESSION: No fracture or dislocation. Knee CT 03/12/24 14:30 IMPRESSION: * Diffuse osteoporosis. * Acute comminuted fracture of proximal tibia involving medial and lateral tibial condyles/plateaus, moderate hemarthrosis, as well as nondisplaced mildly comminuted fracture of fibular head-neck. There is mild depression of the lateral plateau surface. Chest X-Ray 03/12/24 14:42 IMPRESSION: No evidence for acute disease in the chest. Chest CTA 03/12/24 17:52 IMPRESSION: 1. No pulmonary embolus is seen. There is no thoracic aortic aneurysm or dissection. 2. There are bilateral lower lobe foci of pleural and parenchymal scar/subsegmental atelectasis, right greater than left. No associated focal airway obstruction is seen. 3. No nodule, mass, infiltrate or groundglass opacity is seen. 4. There is mild small airway thickening, which can be associated with acute bronchiolitis or reactive airways disease. 5. No thoracic lymphadenopathy or pleural effusion is seen. 6. There are degenerative changes of the included spine. No aggressive osseous lesion is seen. VTE: negative Assessment and Plan (1) Fracture, tibia: Status: Acute (2) Elevated troponin: Status: Acute Plan Pt is an 83-year-old female with a PMH significant for?cerebral palsy, complete heart block s/p pacemaker in place, moderate persistent asthma, rheumatoid arthritis, bipolar disorder who presents to the ED for evaluation of left leg pain after witnessed mechanical fall at home. Pt will be admitted to the hospital for treatment and further evaluation of elevated troponins in the setting of acute left tibial and fibular fractures. Acute tibia and fibular fractures S/P mechanical fall at home Orthopedics consulted by ED, patient should be nonweightbearing and follow-up with orthopedics outpatient Non-opioid analgesics for pain management given hypotension Will get formal orthopedic consult to establish care Elevated troponins Initial troponin 6.1 with repeat 99.9 Patient asymptomatic without chest pain/pressure; EKG without significant ischemic changes Most likely type 2 in the setting of increased demand Will repeat troponin tomorrow morning Consider cardiology consult if troponins shows significant increase Monitor on telemetry Hypotension Patient with episodes of profound hypotension as low as 40/23 while ED Thought secondary to morphine and fentanyl administration Patient responded well to Narcan Will give albumin IVF as necessary Hold home antihypertensives Monitor BP Moderate persistent asthma Not in acute exacerbation Titrate supplemental O2 >92, wean as tolerated Full Code Attending:?Dr. Ford DVT Prophylaxis: Lovenox Patient will be admitted to the hospital under observation for treatment further evaluation of elevated troponins in setting of acute left tibial and fibular fractures. Patient will require overnight hospitalization for close monitoring troponin levels and cardiac functioning. Quality Stroke Does the patient have a stroke diagnosis?: No VTE Prior VTE?: No VTE Risk Level:: Medical - moderate - high VTE Device Contraindication: Treatment Not Indicated VTE Drug Contraindication: N/A - Med Ordered
--- NOTE | 2024-03-12 19:36 | MHC.EDTECH ---
ROUNDING DONE ,VITALS TAKEN ,RN AWARE OF PATIENT LOW BP AND HIGH HEART RATE ,PATIENT DRANK 240 ML ICE WATER .
[2024-03-12] MEDS: Albumin Human 25 % 100 ML IV ×2 (19:49→21:22)
[2024-03-12] MEDS: Enoxaparin Sodium 40 MG/0.4 ML SYRINGE SUBCUT (19:49)
--- NOTE | 2024-03-12 20:55 | MHC.EDTECH ---
PATIENT THREW UP ,RN AWARE CARE GIVEN ,GOWN CHANGE .
[2024-03-12] MEDS: ondansetron HCL 4 MG/2 ML VIAL IVPUSH (21:22)
--- NOTE | 2024-03-12 22:00 | PC.NURSE ---
This chart writer assumed care of this Pt at 1900. Pt A&Ox3, on oxymask SpO2 99%, systolic BP noted to soft in the low 90s, provider Lacy at bedside and aware, new order for albumin. Bruising noted to bilateral arms. Pt reports increase pain to left leg with movement. Pt repositioned and pillow placed for comfort. Pt requesting PO liquids.
[2024-03-13] VITALS (11 sets, daily range): BP systolic 89–107; BP diastolic 52–70; PULSE 62–104; RESP 14–25; TEMP 36.3–37; O2SAT 93–100
--- NOTE | 2024-03-13 00:03 | MHC.EDTECH ---
Patient rang for water ,drank 120 ml ,vitals taken ,Patient comfortable no Pain at this time ,Patient has not void at all on my evening shift ,RN aware .
[2024-03-13] MEDS: 0.9 % Sodium Chloride Flush 3 ML SYRINGE IVFLUSH (00:58)
--- NOTE | 2024-03-13 01:35 | MHC.EDTECH ---
PATIENT COMPLAIN OF BLADDER DISCOMFORT ,BLADDER SCAN DONE ,RN AWARE THAT RESULT IS 485 ML .
--- NOTE | 2024-03-13 02:08 | MHC.EDTECH ---
0200 ROUNDING DONE ,PATIENT ALERT AND ORIENTED ,VITALS TAKEN ,THIS PCT ASSIST RN UMANG WITH PATIENT SHANNON CATHETER ,PATIENT WAS CLEAN UP AND POSITION WITH PILLOW BETWEEN LEGS AND PILLOW BEHIND BACK ,WARM BLANKET GIVEN ,CALL SHEIKH WITHIN PATIENT REACH ,PATIENT DRANK SOME JUICE .
--- NOTE | 2024-03-13 02:16 | PC.NURSE ---
Pt reporting discomfort to bladder, Pt has purewich in place, no urine output noted since 7pm. Bladder scan resulted 485 mL. 16F F/C placed with output of 700 mL of dark yellow urine, pt tolerated well.
[2024-03-13 05:10] LABS: MANUAL DIFF FLAG NO
[2024-03-13 05:12] LABS: Basophils Percent Auto 0.1 % (0-2); Hematocrit 28.1 % (37.0-47.0); Hemoglobin 8.6 g/dl (12.0-16.0); Imm Gran Pct Auto 0.6 % (0.0-0.4); Lymphocytes Absolute Auto 1.1 X10*3/uL (1.2-4.9); Lymphocytes Percent Auto 6.5 % (20-40); Mean Corpuscular HGB Conc 30.6 g/dl (31.0-35.0); Mean Corpuscular Hemoglobin 26.3 pg (27.0-33.0); Mean Corpuscular Volume 85.9 fL (80.0-98.0); Mean Platelet Volume 9.1 fL (9.4-12.3); Monocytes Absolute Auto 0.9 X10*3/uL (0.1-1.2); Monocytes Percent Auto 5.3 % (2-11); Neutrophils Absolute Auto 14.1 x10*3/uL (2.0-8.3); Neutrophils Percent Auto 87.5 % (45-73); Platelet Count 208 X10*3/uL (160-400); Red Blood Count 3.27 X10*6/uL (4.20-5.50); Red Cell Distribution Width 16.6 % (11.0-16.0); White Blood Count 16.2 X10*3/uL (4.8-10.8)
[2024-03-13 05:30] LABS: Anion Gap 18 (12-20); Blood Urea Nitrogen 23 mg/dL (9-16); Calcium 7.9 mg/dL (8.4-10.2); Carbon Dioxide 14 mmol/L (22-29); Chloride 112 mmol/L (96-108); Creatinine Clr Calc Pharmacy 29.8; Estimated Glomerular Filt Rate 54; Glucose Random 123 mg/dL (60-115); Potassium 4.4 mmol/L (3.3-5.1); Sodium 140 mmol/L (135-145)
[2024-03-13 05:40] LABS: Troponin-I High Sensitivity 1056.9 ng/L (<3.5-17.0)
--- NOTE | 2024-03-13 05:42 | PC.NURSE ---
critical result troponin received, notified
--- NOTE | 2024-03-13 06:03 | PM.EVENT ---
Event Note Date of Service: 03/13/24 Event Note: Noted significant elevation in troponin. Will initiate therapeutic Lovenox and obtain echo. Defer beta-raad as patient with soft blood pressure. Administered aspirin. Cardiology has been consulted Time Spent With Patient Time: Total time managing care of this patient today ____ minutes.
--- NOTE | 2024-03-13 06:47 | PM.EVENT ---
Event Note Date of Service: 03/13/24 Event Note: Patient with tibial plateau fx -med hx consistent with cerebal palsy -she has bilat flexion contractures -ambulates with assistance -surgical intervention not recommended given her PMH and flexion contracture, this puts her at a high risk for periprosthetic fracture and poor bone healing which would further complicate her baseline level of functioning -recommend NWB and routine orthopedic f/u out patient. Time Spent With Patient Time: Total time managing care of this patient today ____ minutes.
[2024-03-13] MEDS: Aspirin 81 MG TAB.CHEW 324 MG PO (07:20)
[2024-03-13] MEDS: Enoxaparin Sodium 40 MG/0.4 ML SYRINGE SUBCUT (07:21)
--- NOTE | 2024-03-13 09:18 | HO.PM.IMPN ---
Subjective Subjective Date of Service: 03/13/24 Interval History: leg pain Physical Exam Vital Signs: Vital Signs: Last Vital Signs Temp 97.4 F 03/13/24 05:36 Pulse 94 03/13/24 05:36 Resp 17 03/13/24 05:36 BP 106/67 03/13/24 05:36 Pulse Ox 100 03/13/24 05:36 O2 Del Method Room Air 03/13/24 05:36 O2 Flow Rate 3 03/13/24 02:07 BMI result Body Mass Index 17.6 General: AO X 3, in pain, frail Resp: CTA bilateral, no accessory muscles used CVS: S1,S2,RRR GI: soft, non tender, non distended Psych: appropriate affect, appropriate insight Objective Data Active Medications Acetaminophen (Acetaminophen 325 Mg Tablet) 650 mg PO Q6H PRN PRN Reason: Pain, Mild (Pain Scale 1-3) Atorvastatin Calcium (Atorvastatin Calcium 40 Mg Tablet) 40 mg PO DAILY [facility] Enoxaparin Sodium (Enoxaparin Sodium 40 Mg/0.4 Ml Syringe) 40 mg SUBCUT Q12H [facility] Last Admin: 03/13/24 07:21 Dose: 40 mg Documented By: LES Melatonin (Melatonin 3 Mg Tablet) 6 mg PO BEDTIME PRN PRN Reason: Insomnia Montelukast Sodium (Montelukast Sodium 10 Mg Tablet) 10 mg PO BEDTIME [facility] Non-Formulary Medication (Fluticasone Propion-Salmeterol [Advair Diskus]) 1 each INHALE BID [facility] Ondansetron HCl (Ondansetron Hcl 4 Mg/2 Ml Vial) 4 mg IVPUSH Q8H PRN PRN Reason: Nausea and Vomiting Last Admin: 03/12/24 21:22 Dose: 4 mg Documented By: LES Sodium Chloride (0.9 % Sodium Chloride Flush 3 Ml Syringe) 3 ml IVFLUSH QSHIFT [facility] Last Admin: 03/13/24 07:47 Dose: Not Given Documented By: SHAUN Non-Admin Reason: Med Not Available Labs 03/13/24 04:55 03/13/24 04:55 Labs: Laboratory Results - last 24 hr 03/12/24 03/12/24 03/12/24 10:42 14:45 14:51 MCV 82.5 MCH 25.9 L MCHC 31.4 RDW 16.1 H Plt Count 295 MPV 8.7 L Immature Gran % (Auto) 0.4 Neut % (Auto) 79.2 H Lymph % (Auto) 13.8 L [place] % (Auto) 5.0 Eos % (Auto) 1.1 Baso % (Auto) 0.5 Lymph # (Auto) 1.2 [place] # (Auto) 0.4 Eos # (Auto) 0.1 Baso # (Auto) 0.0 Abs Immat Gran (auto) 0.03 Absolute Neuts (auto) 6.7 Absolute Nucleated RBC 0.000 Nucleated RBC % (auto) 0.0 Anion Gap 12 Estim Creat Clear Calc 39.5 Estimated GFR > 60 POC Glucose 201 H Random Glucose 95 Calcium 9.1 Total Bilirubin 0.4 AST 17 ALT 8 Alkaline Phosphatase 91 Troponin I High Sens 6.1 Total Protein 7.1 Albumin 3.7 Influenza Type A (PCR) NEGATIVE Influenza Type B (PCR) NEGATIVE RSV RNA Qual (PCR) NEGATIVE SARS-CoV-2 RNA (RT-PCR) NEGATIVE 03/12/24 03/13/24 15:56 04:55 MCV 85.9 MCH 26.3 L MCHC 30.6 L RDW 16.6 H Plt Count 208 D MPV 9.1 L Immature Gran % (Auto) 0.6 H Neut % (Auto) 87.5 H Lymph % (Auto) 6.5 L [place] % (Auto) 5.3 Eos % (Auto) 0.0 Baso % (Auto) 0.1 Lymph # (Auto) 1.1 L [place] # (Auto) 0.9 Eos # (Auto) 0.0 Baso # (Auto) 0.0 Abs Immat Gran (auto) 0.10 H Absolute Neuts (auto) 14.1 H Absolute Nucleated RBC 0.000 Nucleated RBC % (auto) 0.0 Anion Gap 18 Estim Creat Clear Calc 29.8 Estimated GFR 54 POC Glucose Random Glucose 123 H Calcium 7.9 L D Total Bilirubin AST ALT Alkaline Phosphatase Troponin I High Sens 99.9 H* D 1056.9 H* D Total Protein Albumin Influenza Type A (PCR) Influenza Type B (PCR) RSV RNA Qual (PCR) SARS-CoV-2 RNA (RT-PCR) Assessment and Plan (1) Elevated troponin: Status: Acute Plan 83F PMH cerebral palsy, complete heart block status post pacer, moderate persistent asthma, rheumatoid arthritis, bipolar disorder presented with mechanical fall complicated by acute tibia and fibular fractures, had hypotensive and hypoxic event in ED after morphine, elevated troponins. Acute tibia and fibular fractures Due to mechanical fall Orthopedics appreciated, nonweightbearing, conservative management NSTEMI Started on Lovenox 40 b.i.d., follow-up Cardio, follow up echo Continue statin, aspirin Acute hypoxic respiratory failure and Hypotension Question due to opiates versus NSTEMI Not due to sepsis Holding verapamil, given IV albumin, monitor Wean off O2 Moderate persistent asthma Continue inhalers Acute metabolic acidosis Likely due to hypotension Monitor Full code DVT prophylaxis-on Lovenox Reason for continued hospitalization: NSTEMI workup Quality Stroke Does the patient have a stroke diagnosis?: No VTE Prior VTE?: No VTE Risk Level:: Medical - moderate - high VTE Device Contraindication: Treatment Not Indicated VTE Drug Contraindication: N/A - Med Ordered
[2024-03-13] MEDS: Atorvastatin Calcium 40 MG TABLET PO (09:57)
--- NOTE | 2024-03-13 10:35 | P.CONCA_ITS ---
History of Present Illness History of Present Illness Date of Service: 03/13/24 Requesting physician: Elliot Lopez Chief complaint: Fall, NSTEMI Narrative: 83-year-old female with cerebral palsy, bipolar disorder, rheumatoid arthritis, hypertension hyperlipidemia who is presenting unfortunately with injury to her leg and tibia/fibula fracture. She also has background of permanent pacemaker placement previously. In the ER she was given narcotics for pain control and developed significant hypotension and hypoxia. She was given Narcan with improvement in hemodynamics. She had elevation in troponin is from normal to 1000. She has no chest discomfort shortness of breath. She is completely asymptomatic from cardiovascular point of view currently. Main complaint unfortunately is left leg pain. She was started on therapeutic Lovenox by the medicine team. [facility], LATER [facility] Past Medical History Medical History Peripheral vascular disease Essential hypertension Impaired glucose tolerance Rheumatoid arthritis Hypercholesterolemia Osteoporosis Bipolar disorder Asthma Complete heart block Cardiac pacemaker in situ Family History Family History Father No problems noted. Mother CVD (cardiovascular disease) Arthritis Surgical History Surgical History History of cataract surgery H/O right knee surgery Hx of tonsillectomy Hx of elbow surgery Hx of colonoscopy History of permanent cardiac pacemaker placement Social History Social History Alcohol intake: never Patient Tobacco Use Status: Never used Tobacco Smoked in Last 30 Days: No Use of substances other than those prescribed or required for medical reasons: No Advance Directives: No Advance Directives Information Provided: No Nutrition Risks: No Nutritional Risk Cognitive needs: Yes (wheelchair) Hearing needs: No Vision needs: No Meds Allergies Allergy/AdvReac Type Severity Reaction Status Date / Time benztropine [From Cogentin] Allergy Mild UNKNOWN Verified 03/12/24 09:39 cogentin Allergy Unknown Unknown Uncoded 03/12/24 09:39 Active Medications: Current Medications Acetaminophen (Acetaminophen 325 Mg Tablet) 650 mg PO Q6H PRN PRN Reason: Pain, Mild (Pain Scale 1-3) Aspirin (Aspirin Enteric Coated 81 Mg Tablet.) 81 mg PO BEDTIME [facility] Atorvastatin Calcium (Atorvastatin Calcium 40 Mg Tablet) 40 mg PO DAILY [facility] Last Admin: 03/13/24 09:57 Dose: 40 mg Enoxaparin Sodium (Enoxaparin Sodium 40 Mg/0.4 Ml Syringe) 40 mg SUBCUT Q12H [facility] Last Admin: 03/13/24 07:21 Dose: 40 mg Fluticasone/Vilanterol (Fluticasone/Vilanterol 100/25 Blst.W.Dev) 1 puff INHALE RDAILY [facility] Melatonin (Melatonin 3 Mg Tablet) 6 mg PO BEDTIME PRN PRN Reason: Insomnia Montelukast Sodium (Montelukast Sodium 10 Mg Tablet) 10 mg PO BEDTIME [facility] Ondansetron HCl (Ondansetron Hcl 4 Mg/2 Ml Vial) 4 mg IVPUSH Q8H PRN PRN Reason: Nausea and Vomiting Last Admin: 03/12/24 21:22 Dose: 4 mg Sodium Chloride (0.9 % Sodium Chloride Flush 3 Ml Syringe) 3 ml IVFLUSH QSHIFT [facility] Last Admin: 03/13/24 07:47 Dose: Not Given Home Medications ?Medication ?Instructions ?Recorded ?Confirmed ?Last Taken ?Type aspirin 81 mg tablet,delayed 81 mg PO BEDTIME 03/12/24 03/12/24 Unknown History release diclofenac sodium 1 % topical gel 2 g topical QID PRN Pain 03/12/24 03/12/24 Unknown History (Voltaren Arthritis Pain) montelukast 10 mg tablet 10 mg PO BEDTIME 03/12/24 03/12/24 Unknown History verapamil 180 mg tablet,extended 180 mg PO DAILY 03/12/24 03/12/24 Unknown History release Physical Exam 2 Vital Signs: Vital Signs: Last Vital Signs Temp 97.4 F 03/13/24 05:36 Pulse 91 03/13/24 10:00 Resp 15 03/13/24 10:00 BP 105/61 03/13/24 10:00 Pulse Ox 100 03/13/24 10:00 O2 Del Method Oxymask 03/13/24 10:00 O2 Flow Rate 1 03/13/24 10:00 BMI result Body Mass Index 17.6 GENERAL APPEARANCE: Distressed due to pain. NECK: no carotid bruit, no jugular venous distention. SKIN: no suspicious lesions, warm and dry. HEART: no murmurs, regular rate and rhythm. LUNGS: clear to auscultation bilaterally. ABDOMEN: soft, nontender. EXTREMITIES: no edema. Contractures. PERIPHERAL PULSES: equal. Objective Labs and Meds 03/13/24 04:55 03/13/24 04:55 Lab results: Laboratory Results - last 24 hr 03/12/24 03/12/24 03/12/24 10:42 14:45 14:51 WBC 8.4 RBC 4.17 L Hgb 10.8 L Hct 34.4 L MCV 82.5 MCH 25.9 L MCHC 31.4 RDW 16.1 H Plt Count 295 MPV 8.7 L Immature Gran % (Auto) 0.4 Neut % (Auto) 79.2 H Lymph % (Auto) 13.8 L [place] % (Auto) 5.0 Eos % (Auto) 1.1 Baso % (Auto) 0.5 Lymph # (Auto) 1.2 [place] # (Auto) 0.4 Eos # (Auto) 0.1 Baso # (Auto) 0.0 Abs Immat Gran (auto) 0.03 Absolute Neuts (auto) 6.7 Absolute Nucleated RBC 0.000 Nucleated RBC % (auto) 0.0 Sodium 143 Potassium 4.1 Chloride 109 H Carbon Dioxide 26 Anion Gap 12 BUN 14 Creatinine 0.74 Estim Creat Clear Calc 39.5 Estimated GFR > 60 POC Glucose 201 H Random Glucose 95 Calcium 9.1 Total Bilirubin 0.4 AST 17 ALT 8 Alkaline Phosphatase 91 Troponin I High Sens 6.1 Total Protein 7.1 Albumin 3.7 Influenza Type A (PCR) NEGATIVE Influenza Type B (PCR) NEGATIVE RSV RNA Qual (PCR) NEGATIVE SARS-CoV-2 RNA (RT-PCR) NEGATIVE 03/12/24 03/13/24 15:56 04:55 WBC 16.2 H RBC 3.27 L D Hgb 8.6 L D Hct 28.1 L MCV 85.9 MCH 26.3 L MCHC 30.6 L RDW 16.6 H Plt Count 208 D MPV 9.1 L Immature Gran % (Auto) 0.6 H Neut % (Auto) 87.5 H Lymph % (Auto) 6.5 L [place] % (Auto) 5.3 Eos % (Auto) 0.0 Baso % (Auto) 0.1 Lymph # (Auto) 1.1 L [place] # (Auto) 0.9 Eos # (Auto) 0.0 Baso # (Auto) 0.0 Abs Immat Gran (auto) 0.10 H Absolute Neuts (auto) 14.1 H Absolute Nucleated RBC 0.000 Nucleated RBC % (auto) 0.0 Sodium 140 Potassium 4.4 Chloride 112 H Carbon Dioxide 14 L Anion Gap 18 BUN 23 H Creatinine 0.98 Estim Creat Clear Calc 29.8 Estimated GFR 54 POC Glucose Random Glucose 123 H Calcium 7.9 L D Total Bilirubin AST ALT Alkaline Phosphatase Troponin I High Sens 99.9 H* D 1056.9 H* D Total Protein Albumin Influenza Type A (PCR) Influenza Type B (PCR) RSV RNA Qual (PCR) SARS-CoV-2 RNA (RT-PCR) Imaging Radiologist's impression: Impressions Knee X-Ray 03/12/24 12:20 IMPRESSION: Question tibial fractures. Osteopenia. Valgus angulation. Small to moderate joint effusion.. Pelvis X-Ray 03/12/24 12:20 IMPRESSION: No fracture or dislocation. Knee CT 03/12/24 14:30 IMPRESSION: * Diffuse osteoporosis. * Acute comminuted fracture of proximal tibia involving medial and lateral tibial condyles/plateaus, moderate hemarthrosis, as well as nondisplaced mildly comminuted fracture of fibular head-neck. There is mild depression of the lateral plateau surface. Chest X-Ray 03/12/24 14:42 IMPRESSION: No evidence for acute disease in the chest. Chest CTA 03/12/24 17:52 IMPRESSION: 1. No pulmonary embolus is seen. There is no thoracic aortic aneurysm or dissection. 2. There are bilateral lower lobe foci of pleural and parenchymal scar/subsegmental atelectasis, right greater than left. No associated focal airway obstruction is seen. 3. No nodule, mass, infiltrate or groundglass opacity is seen. 4. There is mild small airway thickening, which can be associated with acute bronchiolitis or reactive airways disease. 5. No thoracic lymphadenopathy or pleural effusion is seen. 6. There are degenerative changes of the included spine. No aggressive osseous lesion is seen. VTE: negative Assessment and Plan (1) Elevated troponin: Status: Acute Plan 83-year-old female with cerebral palsy who had injury to left leg with fracture and was given narcotics in the emergency department for pain control with resulting hypotension and hypoxia due to hypoventilation. Post Narcan she improved. She has significant elevation in troponin. She had very low blood pressures and had hypoxia. I think her troponins are explained by a type 2 injury currently. She has a paced rhythm and has no symptoms currently. Can changed to prophylactic dose of Lovenox. Pain control and discussion with Orthopedics about options for tibia fibula fracture. Thank you for allowing me to participate in the care of your patient. Please feel free to contact me if you have any questions. Procedures Date of Service Date of Service: 03/13/24
--- NOTE | 2024-03-13 11:00 | PC.NURSE ---
assumed care of pt at 0700. pt found sating in 80s, oxymask on 0L O2. pt placed on 2L O2 and pulse ox up to 100%. titrated down to 1L O2 and sating 94%. pt reports no pain to LLE while pt is resting, 9/10 pain with movement. pt met with Dr. Crowe this AM. is currently resting, watching TV. call florence within reach. rr even/unlabored. plan of care ongoing.
--- NOTE | 2024-03-13 12:30 | MHC.CM.PN ---
IMM 03/13 addressed verbally with pt, but was unable to sign due to severe arthritis of her hands. Pt lives at home with her great niece/BIOINFORMATICS RESEARCH TECHNICIAN Julienne who will transport her home at D/C. Pt has 48 hrs/week of BIOINFORMATICS RESEARCH TECHNICIAN care, but her niece is with her around the clock. Pt uses a wheelchair when going outside of the home. Pt has a HCP, copy requested. PCP: Dr. Judy Lincoln
[2024-03-13] MEDS: Docusate Sodium 100 MG CAPSULE PO ×2 (16:56→22:10)
[2024-03-13] MEDS: Ketorolac Tromethamine 15 MG/ML VIAL IVPUSH (18:34)
--- NOTE | 2024-03-13 20:48 | MHC.EDTECH ---
@2039 Pt rang her call ludivina for help to Bedpankaj
--- NOTE | 2024-03-13 21:01 | MHC.EDTECH ---
@2100 went back to check on patient. Unable to use the bedpan, removed it and helped her get comfortable. all set.
[2024-03-13] MEDS: Albumin Human 25 % 100 ML IV (22:09)
[2024-03-13] MEDS: Aspirin Enteric Coated 81 MG TABLET.DR PO (22:10)
[2024-03-13] MEDS: Montelukast Sodium 10 MG TABLET PO (22:10)
--- NOTE | 2024-03-13 22:13 | PC.NURSE ---
Dr. Ford made aware of soft bps, Albumin hung per order.
[2024-03-14] VITALS (11 sets, daily range): BP systolic 103–127; BP diastolic 55–69; PULSE 73–91; RESP 12–19; TEMP 36.1–36.8; O2SAT 75–100; BMI 17.6; BMI 18.4
[2024-03-14] MEDS: Albumin Human 25 % 100 ML IV (00:05)
[2024-03-14] MEDS: 0.9 % Sodium Chloride Flush 3 ML SYRINGE IVFLUSH ×4 (01:21→20:35)
[2024-03-14 06:03] LABS: Hematocrit 25.5 % (37.0-47.0); Hemoglobin 7.8 g/dl (12.0-16.0); Mean Corpuscular HGB Conc 30.6 g/dl (31.0-35.0); Mean Corpuscular Hemoglobin 26.1 pg (27.0-33.0); Mean Corpuscular Volume 85.3 fL (80.0-98.0); Mean Platelet Volume 9.1 fL (9.4-12.3); Platelet Count 171 X10*3/uL (160-400); Red Blood Count 2.99 X10*6/uL (4.20-5.50); Red Cell Distribution Width 16.6 % (11.0-16.0)
[2024-03-14 06:27] LABS: Alanine Aminotransferase 49 U/L (0-31); Albumin Level 4.1 g/dL (3.5-5.0); Alkaline Phosphatase 54 U/L (39-117); Anion Gap 14 (12-20); Aspartate Amino Transferase 40 U/L (5-31); Bilirubin Direct 0.4 mg/dL (0.0-0.5); Bilirubin Total 0.6 mg/dL (0.0-1.0); Blood Urea Nitrogen 37 mg/dL (9-16); Calcium 8.1 mg/dL (8.4-10.2); Carbon Dioxide 19 mmol/L (22-29); Chloride 106 mmol/L (96-108); Creatinine Clr Calc Pharmacy 21.2; Estimated Glomerular Filt Rate 37; Glucose Fasting 96 mg/dL (60-99); Magnesium 2.1 mg/dL (1.6-2.6); Potassium 4.2 mmol/L (3.3-5.1); Sodium 135 mmol/L (135-145); Total Protein 6.1 g/dL (6.5-8.0)
[2024-03-14 06:52] LABS: Troponin-I High Sensitivity 864.6 ng/L (<3.5-17.0)
--- NOTE | 2024-03-14 07:00 | CA_ITS ---
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 The visually estimated ejection fraction is between 50-55%. - Moderately increased right ventricular cavity size. - There is moderate tricuspid valve regurgitation. - Mild pulmonary hypertension is present. Findings Procedure Information Contrast agent, definity, is being given per protocol without apparent complications. Left Ventricle Normal left ventricular cavity size. There is mildly increased left ventricular wall thickness. The left ventricular systolic function is low normal. The visually estimated ejection fraction is between 50-55%. Regional wall motion abnormalities can not be excluded due to suboptimal endocardial definition. Diastolic function is indeterminate on the basis of available data. LVEF/wall motion difficult to assess in spite of contrast use. Right Ventricle Moderately increased right ventricular cavity size. There is normal right ventricular systolic function. There is a pacemaker wire seen in the right ventricle. Atria Both atria are normal in size. Aortic Valve There is a normal trileaflet aortic valve. There is no aortic valve stenosis. There is trace (trivial) aortic valve regurgitation. Mitral Valve The mitral valve appears normal. There is mild mitral valve regurgitation. There is no mitral valve stenosis. Pulmonic Valve The pulmonic valve is likely normal. Tricuspid Valve There is moderate tricuspid valve regurgitation. Mild pulmonary hypertension is present. Great Vessels The asc aorta is normal in size. Venous The inferior vena cava is mildly dilated and collapses less than 50% with inspiration. Pericardium/Pleural There is no evidence of pericardial effusion. Prior Study Comparison Changes noted compared to prior study dated: 06/21/2009. Possibly, increase in right ventricular size. Measurements 2D Linear Measurements IVSd: 1.06 0.6-0.9/0.6-1.0 cm LVIDd: 3.08 3.9-5.3/4.2-5.9 cm LVIDd Index: 2.20 2.4-3.2/2.2-3.1 cm/m2 LVIDs: 2.45 2.0-3.6 cm LVPWd: 1.15 0.7-1.1 cm LA Diam: 2.30 2.7-3.8/3.0-4.0 cm LAIDs Index: 1.64 1.5-2.3 cm/m2 LV Mass: 123.57 67-162/88-224 g LV Mass Index: 88.26 43-95/49-115 g/m2 LVOT Diam: 1.90 3.0+(-)1.3 cm 2D Systolic Function EF 2C: 56.50 >55% Mitral Valve MV Pk E: 1.19 MV Decel Time: 106.00 E'Lateral: 10.80 E'Medial: 9.36 E/E' Med: 12.70 E/E' Lat: 11.00 PHT: 31.00 MVA PHT: 7.10 Decel [place]: 11.18 Aortic Valve AoV Pk Geraldo: 1.17 AoV Mn Geraldo: 0.88 AoV VTI: 0.20 AoV Pk Grad: 5.00 Aov Mn Grad: 3.00 RADHA Cont.VTI: 1.20 LVOT LVOT Pk Geraldo: 0.59 LVOT Mn Geraldo: 0.37 LVOT VTI: 0.08 LVOT Pk Grad: 1.00 LVOT Mn Grad: 1.00 LVOT Diam: 1.90 LVOT Area: 2.84 Diastolic Function MV Pk E: 1.19 E'Medial: 9.36 E/E' Med: 12.70 E' Laterial: 10.80 E/E' Lat: 11.00 Right Ventricle TAPSE (mm): 22.20 TVS' Geraldo: 8.05 Tricuspid Valve TR Pk Geraldo: 2.82 TR Pk Grad: 32.00 RA Press: 15.00 RVSP: 47.00 Great Vessels Aorta Sinus of Valsalva: 3.50 2.0-3.5 cm Ao Asc: 3.60 2.1-3.4 cm Pulmonary Valve PV Pk Geraldo: 0.85 Peak PV Grad: 3.00 Updated in Other Vendor System with Status of Final Miki Perez MD electronically signed on 03/15/2024 11:17:25 AM with status of Final
--- NOTE | 2024-03-14 09:19 | P.CONOP_ITS ---
History of Present Illness HPI Consult date: 03/14/24 Chief complaint: Fall, NSTEMI Narrative: Patient seen in the ED this morning resting in bed. She states her pain is tolerable. She has a PMH for cerebal palsy, she states the last few years she has not been able to walk much. She has been using a wheelchair more so lately. Her left leg is chronically weaker than the right and helf is a flexed position. on 03/12/24 she presented to the ED due to a fall. She was unable to get up and ambulate. Evaluation in the ED showed proximal tibia fracture. Orthopedics called for recommendations. Review of Systems 2 Review of Systems: Yes all other systems are reviewed and are negative [facility] Past Medical History Medical History Peripheral vascular disease Essential hypertension Impaired glucose tolerance Rheumatoid arthritis Hypercholesterolemia Osteoporosis Bipolar disorder Asthma Complete heart block Cardiac pacemaker in situ Family History Family History Father No problems noted. Mother CVD (cardiovascular disease) Arthritis Surgical History Surgical History History of cataract surgery H/O right knee surgery Hx of tonsillectomy Hx of elbow surgery Hx of colonoscopy History of permanent cardiac pacemaker placement Social History Social History Alcohol intake: never Patient Tobacco Use Status: Never used Tobacco Smoked in Last 30 Days: No Use of substances other than those prescribed or required for medical reasons: No Advance Directives: No Advance Directives Information Provided: No Nutrition Risks: No Nutritional Risk service: No Cognitive needs: Yes (wheelchair) Hearing needs: No Vision needs: No Meds Allergies Allergy/AdvReac Type Severity Reaction Status Date / Time benztropine [From Cogentin] Allergy Mild UNKNOWN Verified 03/12/24 09:39 cogentin Allergy Unknown Unknown Uncoded 03/12/24 09:39 Active Medications: Current Medications Acetaminophen (Acetaminophen 325 Mg Tablet) 650 mg PO Q6H PRN PRN Reason: Pain, Mild (Pain Scale 1-3) Aspirin (Aspirin Enteric Coated 81 Mg Tablet.) 81 mg PO BEDTIME [facility] Last Admin: 03/13/24 22:10 Dose: 81 mg Atorvastatin Calcium (Atorvastatin Calcium 40 Mg Tablet) 40 mg PO DAILY [facility] [place] Last Admin: 03/13/24 09:57 Dose: 40 mg Docusate Sodium (Docusate Sodium 100 Mg Capsule) 100 mg PO BID [facility] [place] Last Admin: 03/13/24 22:10 Dose: 100 mg Enoxaparin Sodium (Enoxaparin Sodium 40 Mg/0.4 Ml Syringe) 30 mg SUBCUT Q24H [facility] [place] Fluticasone/Vilanterol (Fluticasone/Vilanterol 100/25 Blst.W.Dev) 1 puff INHALE RDAILY [facility] [place] Melatonin (Melatonin 3 Mg Tablet) 6 mg PO BEDTIME PRN PRN Reason: Insomnia Montelukast Sodium (Montelukast Sodium 10 Mg Tablet) 10 mg PO BEDTIME [facility] [place] Last Admin: 03/13/24 22:10 Dose: 10 mg Ondansetron HCl (Ondansetron Hcl 4 Mg/2 Ml Vial) 4 mg IVPUSH Q8H PRN PRN Reason: Nausea and Vomiting Last Admin: 03/12/24 21:22 Dose: 4 mg Sodium Chloride (0.9 % Sodium Chloride Flush 3 Ml Syringe) 3 ml IVFLUSH QSHIFT [facility] [place] Last Admin: 03/14/24 01:21 Dose: 3 ml Home Medications ?Medication ?Instructions ?Recorded ?Confirmed ?Last Taken ?Type aspirin 81 mg tablet,delayed 81 mg PO BEDTIME 03/12/24 03/12/24 Unknown History release diclofenac sodium 1 % topical gel 2 g topical QID PRN Pain 03/12/24 03/12/24 Unknown History (Voltaren Arthritis Pain) montelukast 10 mg tablet 10 mg PO BEDTIME 03/12/24 03/12/24 Unknown History verapamil 180 mg tablet,extended 180 mg PO DAILY 03/12/24 03/12/24 Unknown History release Physical Exam 2 Vital Signs: Vital Signs: Last Vital Signs Temp 97.8 F 03/14/24 06:04 Pulse 78 03/14/24 08:42 Resp 17 03/14/24 08:42 BP 127/69 03/14/24 08:42 Pulse Ox 99 03/14/24 08:42 O2 Del Method Room Air 03/14/24 08:42 O2 Flow Rate 1 03/14/24 06:04 BMI result Body Mass Index 17.6 Const: General: cooperative, healthy appearing and comfortable Extrem: Other: LLE held in a flexed position, unable to straighten leg. She has mild discomfort along the proximal tibia and the knee. No significant swelling. NVI. Results Labs 03/14/24 05:35 03/14/24 05:35 Labs: Abnormal lab results 03/14/24 Range/Units 05:35 RBC 2.99 L (4.20-5.50) X10*6/uL Hgb 7.8 L (12.0-16.0) g/dl Hct 25.5 L (37.0-47.0) % MCH 26.1 L (27.0-33.0) pg MCHC 30.6 L (31.0-35.0) g/dl RDW 16.6 H (11.0-16.0) % MPV 9.1 L (9.4-12.3) fL Carbon Dioxide 19 L (22-29) mmol/L BUN 37 H (9-16) mg/dL Calcium 8.1 L (8.4-10.2) mg/dL AST 40 H (5-31) U/L ALT 49 H (0-31) U/L Troponin I High Sens 864.6 H* (<3.5-17.0) ng/L Total Protein 6.1 L (6.5-8.0) g/dL H & H 03/12/24 03/13/24 03/14/24 Range/Units 10:42 04:55 05:35 Hgb 10.8 L 8.6 L D 7.8 L (12.0-16.0) g/dl Hct 34.4 L 28.1 L 25.5 L (37.0-47.0) % All other labs normal. Assessment and Plan (1) Fracture, tibia: Status: Acute Plan -surgical intervention not recommended given her PMH cerebal palsy, she does not ambulate much and flexion contracture, this puts her at a high risk for periprosthetic fracture and poor bone healing which would further complicate her baseline level of functioning -recommend NWB and routine orthopedic f/u out patient. patient expressed understanding Procedures Date of Service Date of Service: 03/14/24
[2024-03-14] MEDS: Docusate Sodium 100 MG CAPSULE PO (09:38)
[2024-03-14] MEDS: Atorvastatin Calcium 40 MG TABLET PO (09:38)
--- NOTE | 2024-03-14 10:03 | PC.NURSE ---
Called respiratory regarding Breo administration. States that they will give the medications.
--- NOTE | 2024-03-14 10:43 | MHC.CLN ---
PT IS UNDER WT FOR HT PREVIOUS WT HX REVEALS 44KG (04/28/23) 43.5KG (04/04/21) PT'S WT STABLE X >2 YEARS, NO SIGNIFICANT CHANGES PT WITH CP WITH INCREASE NEEDS AND MAY BE CONTRIBUTOR TO LOW WT FOR HT DIET RX: CARDIAC-APPROPRIATE RECOMMEND ADDING ENSURE BID TO INCREASE KCALS SUPP PROVIDES 700KCALS, 40G PROTEIN MONITOR PO INTAKE AND ENCOURAGE SUPPLEMENTS SEE ALSO FULL CLINICAL NUTRITION ASSESSMENT
--- NOTE | 2024-03-14 10:56 | P.PNIM_ITS ---
Subjective Subjective Date of Service: 03/14/24 Interval History: pain not controlled Physical Exam 2 Vital Signs: Vital Signs: Last Vital Signs Temp 97.8 F 03/14/24 06:04 Pulse 78 03/14/24 08:42 Resp 17 03/14/24 08:42 BP 127/69 03/14/24 08:42 Pulse Ox 99 03/14/24 08:42 O2 Del Method Room Air 03/14/24 08:42 O2 Flow Rate 1 03/14/24 06:04 BMI result Body Mass Index 17.6 Const: General: cooperative, healthy appearing and comfortable Extrem: Other: LLE held in a flexed position, unable to straighten leg. She has mild discomfort along the proximal tibia and the knee. No significant swelling. NVI. Objective Data Active Medications Acetaminophen (Acetaminophen 325 Mg Tablet) 650 mg PO Q6H PRN PRN Reason: Pain, Mild (Pain Scale 1-3) Aspirin (Aspirin Enteric Coated 81 Mg Tablet.) 81 mg PO BEDTIME [facility] Last Admin: 03/13/24 22:10 Dose: 81 mg Documented By: VINH Atorvastatin Calcium (Atorvastatin Calcium 40 Mg Tablet) 40 mg PO DAILY [facility] Last Admin: 03/14/24 09:38 Dose: 40 mg Documented By: MARIEL Docusate Sodium (Docusate Sodium 100 Mg Capsule) 100 mg PO BID [facility] Last Admin: 03/14/24 09:38 Dose: 100 mg Documented By: MARIEL Enoxaparin Sodium (Enoxaparin Sodium 40 Mg/0.4 Ml Syringe) 30 mg SUBCUT Q24H [facility] Fluticasone/Vilanterol (Fluticasone/Vilanterol 100/25 Blst.W.Dev) 1 puff INHALE RDAILY [facility] Hydromorphone HCl (Hydromorphone Hcl 2 Mg Tablet) 1 mg PO Q4H PRN PRN Reason: moderate pain Melatonin (Melatonin 3 Mg Tablet) 6 mg PO BEDTIME PRN PRN Reason: Insomnia Montelukast Sodium (Montelukast Sodium 10 Mg Tablet) 10 mg PO BEDTIME [facility] Last Admin: 03/13/24 22:10 Dose: 10 mg Documented By: VINH Ondansetron HCl (Ondansetron Hcl 4 Mg/2 Ml Vial) 4 mg IVPUSH Q8H PRN PRN Reason: Nausea and Vomiting Last Admin: 03/12/24 21:22 Dose: 4 mg Documented By: LES Sodium Chloride (0.9 % Sodium Chloride Flush 3 Ml Syringe) 3 ml IVFLUSH QSHIFT [facility] Last Admin: 03/14/24 09:38 Dose: 3 ml Documented By: ABLIAI Labs 03/14/24 05:35 03/14/24 05:35 Labs: Laboratory Results - last 24 hr 03/14/24 05:35 MCV 85.3 MCH 26.1 L MCHC 30.6 L RDW 16.6 H Plt Count 171 MPV 9.1 L Absolute Nucleated RBC 0.000 Nucleated RBC % (auto) 0.0 Anion Gap 14 Estim Creat Clear Calc 21.2 Estimated GFR 37 Fasting Glucose 96 Calcium 8.1 L Magnesium 2.1 Total Bilirubin 0.6 Direct Bilirubin 0.4 AST 40 H ALT 49 H Alkaline Phosphatase 54 Troponin I High Sens 864.6 H* Total Protein 6.1 L Albumin 4.1 Assessment and Plan (1) Elevated troponin: Status: Acute Plan 83F PMH cerebral palsy, complete heart block status post pacer, moderate persistent asthma, rheumatoid arthritis, bipolar disorder presented with mechanical fall complicated by acute tibia and fibular fractures, had hypotensive and hypoxic event in ED after morphine, elevated troponins. Acute tibia and fibular fractures Due to mechanical fall Orthopedics appreciated, nonweightbearing, conservative management hypotension and hypoxia after iv morphine pain uncontrolled on tyelnol, nsaids, will try low dose po dilaudid NSTEMI likely type II due to above, follow up echo Continue statin, aspirin Acute hypoxic respiratory failure and Hypotension Question due to opiates versus NSTEMI Not due to sepsis Holding verapamil, given IV albumin, monitor Wean off O2 bps improving Moderate persistent asthma Continue inhalers acute blood loss and inflammatory anemia due to fracture and hemarthrosis monitor Acute metabolic acidosis Likely due to hypotension Monitor Full code DVT prophylaxis-on Lovenox Reason for continued hospitalization: pain uncontrolled Quality Stroke Does the patient have a stroke diagnosis?: No VTE Prior VTE?: No VTE Risk Level:: Medical - moderate - high VTE Device Contraindication: Treatment Not Indicated VTE Drug Contraindication: N/A - Med Ordered
[2024-03-14] MEDS: bisacodyL 10 MG SUPP.RECT PR (11:30)
[2024-03-14] MEDS: Enoxaparin Sodium 40 MG/0.4 ML SYRINGE 30 MG SUBCUT (11:31)
[2024-03-14] MEDS: Acetaminophen 325 MG TABLET 650 MG PO (11:39)
[2024-03-14] MEDS: Fluticasone/Vilanterol 100/25 BLST.W.DEV 1 PUFF INHALE (12:49)
--- NOTE | 2024-03-14 13:16 | PC.NURSE ---
Patient had large hard brown BM
--- NOTE | 2024-03-14 13:21 | PC.NURSE ---
RN to RN report given to Julienne Mendoza. Plan for admission to room 484 from ED 9.
[2024-03-14] MEDS: ondansetron HCL 4 MG/2 ML VIAL IVPUSH ×2 (16:42→20:49)
[2024-03-14] MEDS: HYDROmorphone HCl 2 MG TABLET 1 MG PO (16:43)
[2024-03-14] MEDS: Aspirin Enteric Coated 81 MG TABLET.DR PO (21:51)
[2024-03-14] MEDS: Montelukast Sodium 10 MG TABLET PO (21:51)
[2024-03-15] VITALS (8 sets, daily range): BP systolic 115–138; BP diastolic 62–76; PULSE 74–92; RESP 16–20; TEMP 36.3–37.6; O2SAT 96–100
[2024-03-15] MEDS: HYDROmorphone HCl 2 MG TABLET 1.5 MG PO ×4 (05:08→22:10)
[2024-03-15 06:54] LABS: Hemoglobin 8.1 g/dl (12.0-16.0); Mean Corpuscular HGB Conc 31.2 g/dl (31.0-35.0); Mean Corpuscular Volume 83.6 fL (80.0-98.0); Mean Platelet Volume 9.3 fL (9.4-12.3); Platelet Count 186 X10*3/uL (160-400); Red Blood Count 3.11 X10*6/uL (4.20-5.50); White Blood Count 8.3 X10*3/uL (4.8-10.8)
[2024-03-15 07:28] LABS: Anion Gap 10 (12-20); Blood Urea Nitrogen 23 mg/dL (9-16); Calcium 8.3 mg/dL (8.4-10.2); Carbon Dioxide 23 mmol/L (22-29); Chloride 108 mmol/L (96-108); Creatinine Clr Calc Pharmacy 38.8; Estimated Glomerular Filt Rate > 60; Glucose Fasting 102 mg/dL (60-99); Potassium 4.2 mmol/L (3.3-5.1); Sodium 137 mmol/L (135-145)
[2024-03-15] MEDS: Fluticasone/Vilanterol 100/25 BLST.W.DEV 1 PUFF INHALE (08:15)
[2024-03-15] MEDS: Atorvastatin Calcium 40 MG TABLET PO (09:21)
[2024-03-15] MEDS: Docusate Sodium 100 MG CAPSULE PO ×2 (09:21→22:04)
[2024-03-15] MEDS: ondansetron HCL 4 MG/2 ML VIAL IVPUSH (09:22)
[2024-03-15] MEDS: Enoxaparin Sodium 40 MG/0.4 ML SYRINGE 30 MG SUBCUT (09:22)
[2024-03-15] MEDS: 0.9 % Sodium Chloride Flush 3 ML SYRINGE IVFLUSH ×2 (09:22→15:22)
--- NOTE | 2024-03-15 10:48 | HO.PM.IMPN ---
Subjective Subjective Date of Service: 03/15/24 Interval History: pain better controlled Physical Exam Vital Signs: Vital Signs: Last Vital Signs Temp 98.2 F 03/15/24 07:44 Pulse 83 03/15/24 08:18 Resp 18 03/15/24 08:18 BP 130/76 03/15/24 07:44 Pulse Ox 96 03/15/24 07:44 O2 Del Method Nasal Cannula 03/15/24 07:44 O2 Flow Rate 2 03/15/24 07:44 BMI result Body Mass Index 18.4 Const: General: cooperative, healthy appearing and comfortable Extrem: Other: LLE held in a flexed position, unable to straighten leg. She has mild discomfort along the proximal tibia and the knee. No significant swelling. NVI. Objective Data Active Medications Acetaminophen (Acetaminophen 325 Mg Tablet) 650 mg PO Q6H PRN PRN Reason: Pain, Mild (Pain Scale 1-3) Last Admin: 03/14/24 11:39 Dose: 650 mg Documented By: HARI Aspirin (Aspirin Enteric Coated 81 Mg Tablet.) 81 mg PO BEDTIME [facility] Last Admin: 03/14/24 21:51 Dose: 81 mg Documented By: YESY Atorvastatin Calcium (Atorvastatin Calcium 40 Mg Tablet) 40 mg PO DAILY [facility] Last Admin: 03/15/24 09:21 Dose: 40 mg Documented By: BOLIVAR Docusate Sodium (Docusate Sodium 100 Mg Capsule) 100 mg PO BID [facility] Last Admin: 03/15/24 09:21 Dose: 100 mg Documented By: BOLIVAR Enoxaparin Sodium (Enoxaparin Sodium 40 Mg/0.4 Ml Syringe) 30 mg SUBCUT Q24H [facility] Last Admin: 03/15/24 09:22 Dose: 30 mg Documented By: BOLIVAR Fluticasone/Vilanterol (Fluticasone/Vilanterol 100/25 Blst.W.Dev) 1 puff INHALE RDAILY [facility] Last Admin: 03/15/24 08:15 Dose: 1 puff Documented By: BRESJAS Hydromorphone HCl (Hydromorphone Hcl 2 Mg Tablet) 1.5 mg PO Q4H PRN PRN Reason: moderate pain Last Admin: 03/15/24 09:21 Dose: 1.5 mg Documented By: BOLIVAR Melatonin (Melatonin 3 Mg Tablet) 6 mg PO BEDTIME PRN PRN Reason: Insomnia Montelukast Sodium (Montelukast Sodium 10 Mg Tablet) 10 mg PO BEDTIME [facility] Last Admin: 03/14/24 21:51 Dose: 10 mg Documented By: YESY Ondansetron HCl (Ondansetron Hcl 4 Mg/2 Ml Vial) 4 mg IVPUSH Q8H PRN PRN Reason: Nausea and Vomiting Last Admin: 03/15/24 09:22 Dose: 4 mg Documented By: BOLIVAR Sodium Chloride (0.9 % Sodium Chloride Flush 3 Ml Syringe) 3 ml IVFLUSH QSHIFT [facility] Last Admin: 03/15/24 09:22 Dose: 3 ml Documented By: BOLIVAR Labs 03/15/24 06:35 03/15/24 06:35 Labs: Laboratory Results - last 24 hr 03/15/24 06:35 MCV 83.6 MCH 26.0 L MCHC 31.2 RDW 17.0 H Plt Count 186 MPV 9.3 L Absolute Nucleated RBC 0.000 Nucleated RBC % (auto) 0.0 Anion Gap 10 L Estim Creat Clear Calc 38.8 Estimated GFR > 60 Fasting Glucose 102 H Calcium 8.3 L Assessment and Plan (1) Elevated troponin: Status: Acute Plan 83F PMH cerebral palsy, complete heart block status post pacer, moderate persistent asthma, rheumatoid arthritis, bipolar disorder presented with mechanical fall complicated by acute tibia and fibular fractures, had hypotensive and hypoxic event in ED after morphine, elevated troponins. Acute left tibia and fibular fractures Due to mechanical fall Orthopedics appreciated, nonweightbearing, conservative management hypotension and hypoxia after iv morphine pain uncontrolled on tyelnol, nsaids, pain improvign on dialudid po, tolerating NSTEMI likely type II due to above, follow up echo Continue statin, aspirin Acute hypoxic respiratory failure and Hypotension Question due to opiates versus NSTEMI Not due to sepsis Holding verapamil, given IV albumin, monitor Wean off O2 bps improving Moderate persistent asthma Continue inhalers acute blood loss and inflammatory anemia due to fracture and hemarthrosis monitor Acute metabolic acidosis Likely due to hypotension Monitor Full code DVT prophylaxis-on Lovenox Reason for continued hospitalization: safe dispo Quality Stroke Does the patient have a stroke diagnosis?: No VTE Prior VTE?: No VTE Risk Level:: Medical - moderate - high VTE Device Contraindication: Treatment Not Indicated VTE Drug Contraindication: N/A - Med Ordered
--- NOTE | 2024-03-15 13:02 | P.CDIM_ITS ---
PROVIDER RESPONSE TEXT: To clarify, the appropriate diagnosis supported by the clinical indicators: Underweight QUERY TEXT: PHYSICIAN'S DOCUMENTATION REQUEST Date of Query: 03/15/2024 12:49 PM EDT Patient Name: Millie Agosto Admit Date: 03/12/2024 Dear Elliot Lopez, A review of the medical record indicates additional documentation may be needed. Please review below and update the documentation accordingly. Clinical Indicators: Height: ( ) 5'2 Weight: ( ) 45.7 kg BMI: ( ) 18.4 Other Clinical Notes Supporting Significance of the BMI: Per Clinical Nutrition Assessment 03/14/24: Patient is underweight for height , weight stable x > 2 ye ars, Patient with Cerebral Palsy with increase needs and may be contributor to low weight for height recommend adding E nsure BID If possible, please provide an associated diagnosis related to the abnormal BMI, such as: Underweight Weight loss Cachexia Anorexia BMI is not significant Other (explain) Clinically unable to determine (explain) Thank you, Antoinette Baptiste RN Use of terms such as suspected, likely, concern for, or probable (associated with a specific diagnosi s that is being evaluated, monitored, or treated as if it exists) are acceptable and can be coded in the inpatient se tting, when documented at the time of discharge. Please use your independent medical judgment in providing your response. THIS QUERY IS PART OF THE PERMANENT MEDICAL RECORD
--- NOTE | 2024-03-15 13:04 | MHC.CM.PN ---
EMR REVIEWED, CM MET W/PT WHO IS AWARE SHE WILL NEED A STR STAY, PT REQUESTS CM CONTACT HER NIECE/HCP HUA WHO SHE TYPICALLY LIVES W/FOR PREFERENCES, CM CONTACTED [facility] AT 12:50PM [phone] AND [facility] REPORTS FACILITIES IN [facility] WOULD BE PREFERRED, ROSANGELA/LUIS ANGEL ARE AND [facility] WOULD STILL BE ABLE TO VISIT DAILY, PER DISCUSSION BLANKET REFERRAL TO BE PLACED.
[2024-03-15] MEDS: Acetaminophen 325 MG TABLET 650 MG PO (14:40)
[2024-03-15] MEDS: Aspirin Enteric Coated 81 MG TABLET.DR PO (22:04)
[2024-03-15] MEDS: Montelukast Sodium 10 MG TABLET PO (22:04)
[2024-03-16] VITALS (11 sets, daily range): BP systolic 130–151; BP diastolic 62–81; PULSE 76–98; RESP 18–21; TEMP 36.1–37.2; O2SAT 79–100
[2024-03-16] MEDS: 0.9 % Sodium Chloride Flush 3 ML SYRINGE IVFLUSH ×4 (01:08→20:08)
[2024-03-16] MEDS: HYDROmorphone HCl 2 MG TABLET 1.5 MG PO ×4 (03:05→20:06)
[2024-03-16] MEDS: Atorvastatin Calcium 40 MG TABLET PO (08:04)
[2024-03-16] MEDS: Docusate Sodium 100 MG CAPSULE PO ×2 (08:04→20:06)
[2024-03-16] MEDS: Fluticasone/Vilanterol 100/25 BLST.W.DEV 1 PUFF INHALE (08:18)
--- NOTE | 2024-03-16 09:48 | MHC.CLN ---
F/U PT IS UNDER WT FOR HT SEE FULL CLINICAL NUTRITION ASSESSMENT DATED 03/14/24 NEW WT UP 4# SINCE ADMISSION (45.7KG) PO INTAKE RANGES FROM 25-75% DIET RX: CARDIAC GRD M/S-APPROPRIATE PT RECEIVING ENSURE BID TO INCREASE KCALS SUPP PROVIDES 700KCALS, 40G PROTEIN MONITOR PO INTAKE AND ENCOURAGE SUPPLEMENTS
--- NOTE | 2024-03-16 10:23 | P.PNIM_ITS ---
Subjective Subjective Date of Service: 03/16/24 Interval History: still with some pain, but reports it is manageable, not interested in changes to med regiment Physical Exam 2 Vital Signs: Vital Signs: Last Vital Signs Temp 98.3 F 03/16/24 07:16 Pulse 92 03/16/24 08:21 Resp 18 03/16/24 08:21 BP 151/81 H 03/16/24 07:16 Pulse Ox 99 03/16/24 07:16 O2 Del Method Room Air 03/16/24 07:16 O2 Flow Rate 2 03/16/24 03:04 BMI result Body Mass Index 18.4 General: AO X 3, no acute distress Resp: dimished bilateral, no accessory muscles used CVS: S1,S2,RRR GI: soft, non tender, non distended Neuro: motor grossly intact, alert Psych: appropriate affect, appropriate insight RA changes Objective Data Active Medications Acetaminophen (Acetaminophen 325 Mg Tablet) 650 mg PO Q6H PRN PRN Reason: Pain, Mild (Pain Scale 1-3) Last Admin: 03/15/24 14:40 Dose: 650 mg Documented By: ALEKSANDAR Aspirin (Aspirin Enteric Coated 81 Mg Tablet.Dr) 81 mg PO BEDTIME [facility] Last Admin: 03/15/24 22:04 Dose: 81 mg Documented By: ALEKSANDAR Atorvastatin Calcium (Atorvastatin Calcium 40 Mg Tablet) 40 mg PO DAILY [facility] Last Admin: 03/16/24 08:04 Dose: 40 mg Documented By: DOREEN Docusate Sodium (Docusate Sodium 100 Mg Capsule) 100 mg PO BID [facility] Last Admin: 03/16/24 08:04 Dose: 100 mg Documented By: DOREEN Enoxaparin Sodium (Enoxaparin Sodium 40 Mg/0.4 Ml Syringe) 40 mg SUBCUT Q24H [facility] Fluticasone/Vilanterol (Fluticasone/Vilanterol 100/25 Blst.W.Dev) 1 puff INHALE RDAILY [facility] Last Admin: 03/16/24 08:18 Dose: 1 puff Documented By: SINTIA Hydromorphone HCl (Hydromorphone Hcl 2 Mg Tablet) 1.5 mg PO Q4H PRN PRN Reason: moderate pain Last Admin: 03/16/24 08:12 Dose: 1.5 mg Documented By: DOREEN Melatonin (Melatonin 3 Mg Tablet) 6 mg PO BEDTIME PRN PRN Reason: Insomnia Montelukast Sodium (Montelukast Sodium 10 Mg Tablet) 10 mg PO BEDTIME [facility] Last Admin: 03/15/24 22:04 Dose: 10 mg Documented By: ALEKSANDAR Ondansetron HCl (Ondansetron Hcl 4 Mg/2 Ml Vial) 4 mg IVPUSH Q8H PRN PRN Reason: Nausea and Vomiting Last Admin: 03/15/24 09:22 Dose: 4 mg Documented By: BOLIVAR Sodium Chloride (0.9 % Sodium Chloride Flush 3 Ml Syringe) 3 ml IVFLUSH QSHIFT [facility] Last Admin: 03/16/24 08:06 Dose: 3 ml Documented By: DOREEN Labs 03/15/24 06:35 03/15/24 06:35 Assessment and Plan (1) Elevated troponin: Status: Acute Plan 83F PMH cerebral palsy, complete heart block status post pacer, moderate persistent asthma, rheumatoid arthritis, bipolar disorder presented with mechanical fall complicated by acute tibia and fibular fractures, had hypotensive and hypoxic event in ED after morphine, elevated troponins. Acute left tibia and fibular fractures Due to mechanical fall Orthopedics appreciated, nonweightbearing, conservative management Donjoy brace in place hypotension and hypoxia after iv morphine pain uncontrolled on tyelnol, nsaids, pain manageable on dialudid po, tolerating NSTEMI likely type II due to above Continue statin, aspirin echo - EF 50-55%, moderate increased RV, mod TR, mild pulm HTN (likely from RA) Acute hypoxic respiratory failure and Hypotension likely due to morphine resolved Moderate persistent asthma Continue inhalers acute blood loss and inflammatory anemia due to fracture and hemarthrosis Acute metabolic acidosis Likely due to hypotension resolved Full code DVT prophylaxis-on Lovenox Reason for continued hospitalization: safe dispo Quality Stroke Does the patient have a stroke diagnosis?: No VTE Prior VTE?: No VTE Risk Level:: Medical - moderate - high VTE Device Contraindication: Treatment Not Indicated VTE Drug Contraindication: N/A - Med Ordered
--- NOTE | 2024-03-16 10:32 | PM.DS ---
DS: Providers Provider Date of Service: 03/16/24 Date of admission: 03/12/24 19:18 Primary care physician: Judy Lincoln MD Consults: 03/12/24 20:34 Consult to Orthopedics Routine Consulting Provider: [facility] Reason for consultation: [facility], to establish care 03/12/24 20:39 Consult to Cardiology Routine Consulting Provider: [facility] Reason for consultation: Hypotension, elevated troponins in setting of knee fracture DS: Diagnosis Discharge Diagnosis (1) Elevated troponin: Status: Acute DS: Summary Hospital Course Hospital Course: from initial hpi: 83-year-old female with a PMH significant for?cerebral palsy, complete heart block s/p pacemaker in place, moderate persistent asthma, rheumatoid arthritis, bipolar disorder who presents to the ED for evaluation of left leg pain after witnessed mechanical fall at home. Patient states that she was walking on her front door to go to the car when she missed her footing on the 1st step and her knee buckled. Her niece was right beside her who caught her and lowered her to the ground. Denies falling to the ground or trauma to the left knee. No prodrome of lightheadedness or dizziness. Patient had intense left knee pain and was unable to stand up or bear weight on left leg. Called EMS to bring to the ED for further evaluation. Patient reports a long history of chronic problems with her left hip, thigh, and leg. Denies chest pain/pressure or palpitations. Has chronic shortness of breath perhaps slightly increased from baseline. Denies fever, chills, nausea, vomiting, abdominal pain. Patient not on home O2 in last hospitalized for asthma exacerbation over 5 years ago. In the ED pt was tachycardic up to 113 and hypotensive as low as 40/23, satting as low as 83% on RA. Labs were significant for initial troponin 6.1 with repeat 99.9, otherwise grossly unremarkable and baseline for patient. No leukocytosis. Stable H&H of 10.8/34.4. No significant electrolyte abnormalities. Renal and hepatic function WNL. Patient tested negative for influenza, RSV, and COVID. CXR showed no evidence for acute disease in the chest. X-ray of left knee showed question of tibial fractures, osteopenia, valgus angulation, and small to moderate joint effusion. Pelvis x-ray negative for acute fracture or dislocation. CT of left knee found diffuse osteoporosis and acute comminuted fracture of proximal tibia involving medial and lateral tibial condyles/plateaus, moderate hemarthrosis, as well as nondisplaced mildly comminuted fracture of fibular head/neck. CTA of chest negative for pulmonary embolus, thoracic aortic aneurysm or dissection. Did show bilateral lower lobe foci of pleural and parenchymal scar/subsegmental atelectasis, right greater than left. EKG demonstrated ventricularly paced rhythm of [address] elevations or depressions. Pt was treated with morphine, lidocaine, and fentanyl. Orthopedics was contacted and recommended nonweightbearing and outpatient follow-up. However, patient was noted to have episodes of profound hypotension in the ED, thought to be secondary to morphine and fentanyl. Responded well to Narcan. Cardiology was consulted for elevated troponins and thought likely to demand ischemia. Pt will be admitted to the hospital under observation for treatment and further evaluation of elevated troponins in the setting of acute left tibial and fibular fractures. hospital course: Patient was admitted for mechanical fall complicated by acute left tibia and fibular fractures. She was seen by Orthopedics who recommended nonsurgical management as patient at risk for periprosthetic fracture and poor healing. Recommendations were for nonweightbearing on left lower extremity. DonJoy brace was placed. Pain control reasonable with hydromorphone 1.5 mg p.o. wean as tolerated. On Lovenox 40 mg daily for DVT prophylaxis. Will be discharged to long-term facility for short-term rehab. For hypotension and acute hypoxia after IV morphine, resolved with Narcan and did not recur. For NSTEMI, seen by Cardiology who felt this was likely type 2 due to hypotension and hypoxia, was continued on aspirin statin. Echocardiogram showed EF of 50-55%, moderate increased RV, moderate TR, mild pulmonary hypertension (likely due to RA). For moderate persistent asthma was continued on inhalers. For acute blood loss and inflammatory anemia due to fracture and hemarthrosis, hemoglobin stabilized at about 8, did not receive transfusion. For acute metabolic acidosis due to hypotension, resolved after resolution of hypotension. Patient's verapamil has been held due to hypotension, can be restarted if blood pressure is persistently high. Patient is feeling better will be discharged to long-term facility. Time Attestation Discharge Coordination Time (in mins): 35 Quality: Safe Use of Opioids Does Pt have an Active Cancer Diagnosis on the Problem List?: No Quality: Stroke Does the patient have a stroke diagnosis?: No Physical Exam Vital Signs: Vital Signs: Last Vital Signs Temp 98.3 F 03/16/24 07:16 Pulse 92 03/16/24 08:21 Resp 18 03/16/24 08:21 BP 151/81 H 03/16/24 07:16 Pulse Ox 99 03/16/24 07:16 O2 Del Method Room Air 03/16/24 07:16 O2 Flow Rate 2 03/16/24 03:04 BMI result Body Mass Index 18.4 General: AO X 3, no acute distress Resp: dimished bilateral, no accessory muscles used CVS: S1,S2,RRR GI: soft, non tender, non distended Neuro: motor grossly intact, alert Psych: appropriate affect, appropriate insight RA changes Discharge Plan Discharge Anticipated Discharge Date/Time: 03/16/24 10:29 Patient Disposition: er SNF Discharge Diagnosis: fall, tibia fracture Referrals: [facility] [Other] - 1 Week (SHORT TERM REHAB) Ulises Angulo MD [Physician] - 1 Month Po,Judy Gastelum MD [Primary Care Provider] - 1 Week Discharge Medications: New acetaminophen 325 mg Tablet 650 mg PO Q6H PRN (Reason: Pain, Mild (Pain Scale 1-3)) Qty: 0 0RF hydromorphone 2 mg Tablet 1.5 mg PO Q4H PRN (Reason: moderate pain) Qty: 15 0RF Rx Instructions: Partial Fill upon patient request. enoxaparin 40 mg/0.4 mL Syringe 40 mg subcut Q24H Qty: 0 0RF Continued albuterol sulfate 90 mcg/actuation HFA aerosol inhaler 2 puff inhalation Q6H PRN (Reason: for muscle spasm) Qty: 8.5 0RF montelukast 10 mg tablet 10 mg PO BEDTIME diclofenac sodium [Voltaren Arthritis Pain] 1 % gel 2 g topical QID PRN (Reason: Pain) Rx Instructions: apply to single elbow, wrist or hand; for hand includes palm/fingers/back of hand aspirin 81 mg tablet,delayed release (DR/EC) 81 mg PO BEDTIME fluticasone propion-salmeterol [Advair Diskus] 250-50 mcg/dose blister with device 1 ea inhalation BID Qty: 180 1RF Discontinued verapamil 180 mg tablet extended release 180 mg PO DAILY Discharge Orders: Discharge Order (Routine); Ordered 03/16/24 Ordered By: Elliot Lopez Diet: Advance to usual diet Activity on Discharge: As tolerated Stand Alone Forms: Patient Portal Discharge page Print Language: Nepalese Care Plan Goals: recovery Health Concerns: left tibia fracture Plan of Treatment: non weight bearing LLE, follow up with ortho, pain control, dvt prophylaxis Assessment: see above
[2024-03-16] MEDS: ondansetron HCL 4 MG/2 ML VIAL IVPUSH ×2 (10:45→20:06)
[2024-03-16] MEDS: Enoxaparin Sodium 40 MG/0.4 ML SYRINGE SUBCUT (10:51)
--- NOTE | 2024-03-16 10:59 | PM.EVENT ---
Event Note Date of Service: 03/16/24 Event Note: patient got bed at rehab, plan was for discharge, but became very nasueous, vomited breakfast, feels unwell will hold off on discharge today check KUB rule out ileus, did have bm on 03/14/24 monitor Time Spent With Patient Time: Total time managing care of this patient today ____ minutes.
--- NOTE | 2024-03-16 11:07 | MHC.CM.PN ---
EMR REVIEWED, PT RECEIVED AND ACCEPTED BED OFFER FROM [facility], CM WAS COMPLETING HCP W/PT AND ANOTHER NURSE CM, PT VOMITED A SMALL AMT OF YELLOW PHLEGM, WHEN HOSPITALIST MET W/PT SHE VOMITED AGAIN, HOSPITALIST TO HOLD PT OVERNIGHT, [facility]LE AND NIECE/HCP [facility] UPDATED. HUA DOES REPORT THAT PT DOES EAT TOO QUICKLY AT TIMES AND WILL REGURGITATE WHAT SHE ATE, HOSPITALIST AWARE VIA TIGER
[2024-03-16] MEDS: Aspirin Enteric Coated 81 MG TABLET.DR PO (20:06)
[2024-03-16] MEDS: Montelukast Sodium 10 MG TABLET PO (20:06)
[2024-03-17] VITALS: BP 121/75; PULSE 91; TEMP 36.4; O2SAT 95
[2024-03-17 04:00] VITALS: BP 131/79; PULSE 89; RESP 18; TEMP 36.7
[2024-03-17] MEDS: ondansetron HCL 4 MG/2 ML VIAL IVPUSH (06:02)
[2024-03-17] MEDS: HYDROmorphone HCl 2 MG TABLET 1.5 MG PO (06:02)
[2024-03-17 06:56] LABS: Hematocrit 29.8 % (37.0-47.0); Hemoglobin 9.3 g/dl (12.0-16.0); Mean Corpuscular HGB Conc 31.2 g/dl (31.0-35.0); Mean Corpuscular Hemoglobin 26.3 pg (27.0-33.0); Mean Corpuscular Volume 84.4 fL (80.0-98.0); Mean Platelet Volume 9.7 fL (9.4-12.3); Platelet Count 245 X10*3/uL (160-400); Red Blood Count 3.53 X10*6/uL (4.20-5.50); Red Cell Distribution Width 17.2 % (11.0-16.0)
[2024-03-17 07:13] LABS: Anion Gap 12 (12-20); Blood Urea Nitrogen 12 mg/dL (9-16); Calcium 8.8 mg/dL (8.4-10.2); Carbon Dioxide 25 mmol/L (22-29); Chloride 106 mmol/L (96-108); Creatinine Clr Calc Pharmacy 45.8; Estimated Glomerular Filt Rate > 60; Glucose Fasting 96 mg/dL (60-99); Magnesium 2.1 mg/dL (1.6-2.6); Potassium 4.6 mmol/L (3.3-5.1); Sodium 138 mmol/L (135-145)
[2024-03-17 07:28] VITALS: BP 130/67; PULSE 91; RESP 20; TEMP 36.7; O2SAT 96
[2024-03-17] MEDS: Fluticasone/Vilanterol 100/25 BLST.W.DEV 1 PUFF INHALE (07:34)
[2024-03-17 07:35] VITALS: PULSE 90; RESP 16; O2SAT 89
[2024-03-17] MEDS: Docusate Sodium 100 MG CAPSULE PO (09:32)
[2024-03-17] MEDS: Enoxaparin Sodium 40 MG/0.4 ML SYRINGE SUBCUT (09:32)
[2024-03-17] MEDS: Atorvastatin Calcium 40 MG TABLET PO (09:32)
[2024-03-17] MEDS: 0.9 % Sodium Chloride Flush 3 ML SYRINGE IVFLUSH (09:35)
--- NOTE | 2024-03-17 10:35 | PM.DS ---
DS: Providers Provider Date of Service: 03/17/24 Date of admission: 03/12/24 19:18 Primary care physician: Judy Lincoln MD Consults: 03/12/24 20:34 Consult to Orthopedics Routine Consulting Provider: [facility] Orthopedic Surgeons Reason for consultation: Left tibia & fibular fractures s/p [facility] fall at home, to establish care 03/12/24 20:39 Consult to Cardiology Routine Consulting Provider: [facility] Cardiovascular Services Reason for consultation: Hypotension, elevated troponins in setting of knee fracture DS: Diagnosis Discharge Diagnosis (1) Elevated troponin: Status: Acute (2) Fall: Status: Acute (3) Fracture, tibia: Status: Acute (4) Constipation: Status: Acute DS: Summary Hospital Course Hospital Course: from initial hpi: 83-year-old female with a PMH significant for?cerebral palsy, complete heart block s/p pacemaker in place, moderate persistent asthma, rheumatoid arthritis, bipolar disorder who presents to the ED for evaluation of left leg pain after witnessed mechanical fall at home. Patient states that she was walking on her front door to go to the car when she missed her footing on the 1st step and her knee buckled. Her niece was right beside her who caught her and lowered her to the ground. Denies falling to the ground or trauma to the left knee. No prodrome of lightheadedness or dizziness. Patient had intense left knee pain and was unable to stand up or bear weight on left leg. Called EMS to bring to the ED for further evaluation. Patient reports a long history of chronic problems with her left hip, thigh, and leg. Denies chest pain/pressure or palpitations. Has chronic shortness of breath perhaps slightly increased from baseline. Denies fever, chills, nausea, vomiting, abdominal pain. Patient not on home O2 in last hospitalized for asthma exacerbation over 5 years ago. In the ED pt was tachycardic up to 113 and hypotensive as low as 40/23, satting as low as 83% on RA. Labs were significant for initial troponin 6.1 with repeat 99.9, otherwise grossly unremarkable and baseline for patient. No leukocytosis. Stable H&H of 10.8/34.4. No significant electrolyte abnormalities. Renal and hepatic function WNL. Patient tested negative for influenza, RSV, and COVID. CXR showed no evidence for acute disease in the chest. X-ray of left knee showed question of tibial fractures, osteopenia, valgus angulation, and small to moderate joint effusion. Pelvis x-ray negative for acute fracture or dislocation. CT of left knee found diffuse osteoporosis and acute comminuted fracture of proximal tibia involving medial and lateral tibial condyles/plateaus, moderate hemarthrosis, as well as nondisplaced mildly comminuted fracture of fibular head/neck. CTA of chest negative for pulmonary embolus, thoracic aortic aneurysm or dissection. Did show bilateral lower lobe foci of pleural and parenchymal scar/subsegmental atelectasis, right greater than left. EKG demonstrated ventricularly paced rhythm of [address] elevations or depressions. Pt was treated with morphine, lidocaine, and fentanyl. Orthopedics was contacted and recommended nonweightbearing and outpatient follow-up. However, patient was noted to have episodes of profound hypotension in the ED, thought to be secondary to morphine and fentanyl. Responded well to Narcan. Cardiology was consulted for elevated troponins and thought likely to demand ischemia. Pt will be admitted to the hospital under observation for treatment and further evaluation of elevated troponins in the setting of acute left tibial and fibular fractures. hospital course: Patient was admitted for mechanical fall complicated by acute left tibia and fibular fractures. She was seen by Orthopedics who recommended nonsurgical management as patient at risk for periprosthetic fracture and poor healing. Recommendations were for nonweightbearing on left lower extremity. DonJoy brace was placed. Pain control reasonable with hydromorphone 1.5 mg p.o. wean as tolerated. On Lovenox 40 mg daily for DVT prophylaxis. [facility] be [facility] to [facility] facility for [facility]-term rehab. For hypotension and acute hypoxia after IV morphine, resolved with Narcan and did not recur. For NSTEMI, seen by Cardiology who felt this was likely type 2 due to hypotension and hypoxia, was continued on aspirin statin. Echocardiogram showed EF of 50-55%, moderate increased RV, moderate TR, mild pulmonary hypertension (likely due to RA). For moderate persistent asthma was continued on inhalers. For acute blood loss and inflammatory anemia due to fracture and hemarthrosis, hemoglobin stabilized at about 8, did not receive transfusion. For acute metabolic acidosis due to hypotension, resolved after resolution of hypotension. Patient's verapamil has been held due to hypotension, can be restarted if blood pressure is persistently high. discharge postpone as she developed vomiting. XR of abdomen negative for Ileus or obstruction. Patient is feeling better will be discharged to retirement facility. Time Attestation Discharge Coordination Time (in mins): 35 Quality: Safe Use of Opioids Does Pt have an Active Cancer Diagnosis on the Problem List?: No Quality: Stroke Does the patient have a stroke diagnosis?: No Physical Exam Vital Signs: Vital Signs: Last Vital Signs Temp 98.0 F 03/17/24 07:28 Pulse 90 03/17/24 07:35 Resp 16 03/17/24 07:35 BP 130/67 03/17/24 07:28 Pulse Ox 96 03/17/24 07:28 O2 Del Method Nasal Cannula 03/17/24 07:28 O2 Flow Rate 1 03/17/24 07:28 BMI result Body Mass Index 18.4 Const: Other: Constitutional : Awake, interactive, not in distress Neck : Normal inspection, Supple Cardiovascular : RRR, no JVP, no lower extremity edema Respiratory : good bilateral air entry, no crackles, wheezes or rhonchi Gastrointestinal: soft, lax, Normal bowel sounds, Non tender Skin : Warm, Dry Skeletal: fingers deformities 2/2 RA Neurological : Alert & oriented x3, No focal deficit DS: Data Data Completed and Pending Labs on day of discharge: Laboratory Results - last 24 hr 03/17/24 03/17/24 05:00 06:00 WBC 10.0 RBC 3.53 L Hgb 9.3 L Hct 29.8 L MCV 84.4 MCH 26.3 L MCHC 31.2 RDW 17.2 H Plt Count 245 D MPV 9.7 Absolute Nucleated RBC 0.000 Nucleated RBC % (auto) 0.0 Sodium 138 Potassium 4.6 Chloride 106 Carbon Dioxide 25 Anion Gap 12 BUN 12 Creatinine 0.67 Estim Creat Clear Calc 45.8 Estimated GFR > 60 Fasting Glucose 96 Calcium 8.8 D Magnesium 2.1 Imaging XR leg: Radiologist's impression: ITS Impressions Knee X-Ray 03/12/24 12:20 IMPRESSION: Question tibial fractures. Osteopenia. Valgus angulation. Small to moderate joint effusion.. Pelvis X-Ray 03/12/24 12:20 IMPRESSION: No fracture or dislocation. Knee CT 03/12/24 14:30 IMPRESSION: * Diffuse osteoporosis. * Acute comminuted fracture of proximal tibia involving medial and lateral tibial condyles/plateaus, moderate hemarthrosis, as well as nondisplaced mildly comminuted fracture of fibular head-neck. There is mild depression of the lateral plateau surface. Chest X-Ray 03/12/24 14:42 IMPRESSION: No evidence for acute disease in the chest. Chest CTA 03/12/24 17:52 IMPRESSION: 1. No pulmonary embolus is seen. There is no thoracic aortic aneurysm or dissection. 2. There are bilateral lower lobe foci of pleural and parenchymal scar/subsegmental atelectasis, right greater than left. No associated focal airway obstruction is seen. 3. No nodule, mass, infiltrate or groundglass opacity is seen. 4. There is mild small airway thickening, which can be associated with acute bronchiolitis or reactive airways disease. 5. No thoracic lymphadenopathy or pleural effusion is seen. 6. There are degenerative changes of the included spine. No aggressive osseous lesion is seen. VTE: negative KUB X-Ray 03/16/24 11:56 IMPRESSION: No obstruction or ileus. Discharge Plan Discharge Anticipated Discharge Date/Time: 03/16/24 10:29 Patient Disposition: er SNF Discharge Diagnosis: fall, tibia fracture Referrals: [facility] [Other] - 1 Week (SHORT TERM REHAB) Ulises Angulo MD [Physician] - 1 Month Po,Judy Gastelum MD [Primary Care Provider] - 1 Week Discharge Medications: New acetaminophen 325 mg Tablet 650 mg PO Q6H PRN (Reason: Pain, Mild (Pain Scale 1-3)) Qty: 0 0RF hydromorphone 2 mg Tablet 1.5 mg PO Q4H PRN (Reason: moderate pain) Qty: 15 0RF Rx Instructions: Partial Fill upon patient request. enoxaparin 40 mg/0.4 mL Syringe 40 mg subcut Q24H Qty: 0 0RF Continued albuterol sulfate 90 mcg/actuation HFA aerosol inhaler 2 puff inhalation Q6H PRN (Reason: for muscle spasm) Qty: 8.5 0RF montelukast 10 mg tablet 10 mg PO BEDTIME diclofenac sodium [Voltaren Arthritis Pain] 1 % gel 2 g topical QID PRN (Reason: Pain) Rx Instructions: apply to single elbow, wrist or hand; for hand includes palm/fingers/back of hand aspirin 81 mg tablet,delayed release (DR/EC) 81 mg PO BEDTIME fluticasone propion-salmeterol [Advair Diskus] 250-50 mcg/dose blister with device 1 ea inhalation BID Qty: 180 1RF Discontinued verapamil 180 mg tablet extended release 180 mg PO DAILY Discharge Orders: Discharge Order (Routine); Ordered 03/17/24 Ordered By: Mireille Emanuel Diet: Advance to usual diet Activity on Discharge: As tolerated Stand Alone Forms: Patient Portal Discharge page Print Language: Kiswahili Care Plan Goals: recovery Health Concerns: left tibia fracture Plan of Treatment: non weight bearing LLE, follow up with ortho, pain control, dvt prophylaxis Assessment: see above Discharge Date/Time: 03/17/24 13:10
[2024-03-17 11:39] VITALS: BP 146/80; PULSE 91; RESP 20; TEMP 36.6; O2SAT 96
--- NOTE | 2024-03-17 13:00 | PC.NURSE ---
slater cath removed at 1255 per MD order. urine color has some tint red. MD notified. pt asymptomatic, will monitor
== END 2024-03-17 13:10 | disposition skilled nursing facility (03) | DRG 562 ==
LOC: HO.ED 17:13 → HO.EDOVER 03-13 06:54 → HO.IMC 03-14 11:56
PROVIDERS: Emergency Medicine Emergency Medical Services; Internal Medicine; Physician Assistant; Admitting Provider Student in an Organized Health Care Education/Training Program; Emergency Provider Emergency Medicine; PCP Internal Medicine; Visit Provider Student in an Organized Health Care Education/Training Program
DX: S82.142A Displaced bicondylar fracture of left tibia, initial encounter for closed fracture (principal); I21.A1 Myocardial infarction type 2; J96.01 Acute respiratory failure with hypoxia; I44.2 Atrioventricular block, complete; E87.21 Acute metabolic acidosis; D62 Acute posthemorrhagic anemia; Z68.1 Body mass index [BMI] 19.9 or less, adult; I07.1 Rheumatic tricuspid insufficiency; I27.29 Other secondary pulmonary hypertension; R63.6 Underweight; S82.832A Other fracture of upper and lower end of left fibula, initial encounter for closed fracture; W19.XXXA Unspecified fall, initial encounter; J45.40 Moderate persistent asthma, uncomplicated; K59.00 Constipation, unspecified; I95.2 Hypotension due to drugs; T40.2X5A Adverse effect of other opioids, initial encounter; F31.9 Bipolar disorder, unspecified; M06.9 Rheumatoid arthritis, unspecified; G80.9 Cerebral palsy, unspecified; Z20.822 Contact with and (suspected) exposure to COVID-19; Z95.0 Presence of cardiac pacemaker; Z79.51 Long term (current) use of inhaled steroids; Z79.82 Long term (current) use of aspirin; Z79.899 Other long term (current) drug therapy
CPT/HCPCS: 0241U; 36415; 71045; 71275; 72170; 73560; 73700; 74018; 80048; 80053; 80076; 82947; 83735; 84484; 85025; 85027; 92950; 93005; 93306; 94640; 97163; 97530; 99222; 99285; C1758; J1650; J1885; J2405; J3010; P9047; Q9957; Q9967

== ENCOUNTER 2024-03-12 19:18 | Outpatient (BNV) | payer MEDICARE, MEDICAID, SELFPAY | END 2024-03-14 07:00 | PROVIDERS: Admitting Provider Student in an Organized Health Care Education/Training Program; Emergency Provider Emergency Medicine; PCP Internal Medicine; Visit Provider Internal Medicine | DX: I21.4 Non-ST elevation (NSTEMI) myocardial infarction (principal); I36.1 Nonrheumatic tricuspid (valve) insufficiency | CPT/HCPCS: 93306 ==

== ENCOUNTER → 2024-03-12 19:18 | Outpatient (BNV) | payer MEDICARE, MEDICAID, SELFPAY | PROVIDERS: Admitting Provider Student in an Organized Health Care Education/Training Program; Emergency Provider Emergency Medicine; PCP Internal Medicine; Visit Provider Physician Assistant | DX: S82.202A Unspecified fracture of shaft of left tibia, initial encounter for closed fracture (principal) | CPT/HCPCS: 99221; 99499 ==

== ENCOUNTER → 2024-03-12 19:18 | Outpatient (BNV) | payer MEDICARE, MEDICAID, SELFPAY | PROVIDERS: Admitting Provider Student in an Organized Health Care Education/Training Program; Emergency Provider Emergency Medicine; PCP Internal Medicine; Visit Provider Internal Medicine Cardiovascular Disease | DX: R79.89 Other specified abnormal findings of blood chemistry (principal); R41.82 Altered mental status, unspecified | CPT/HCPCS: 93010; 99222 ==

== ENCOUNTER → 2024-03-12 19:18 | Outpatient (BNV) | payer MEDICARE, MEDICAID, SELFPAY | PROVIDERS: Admitting Provider Student in an Organized Health Care Education/Training Program; Emergency Provider Emergency Medicine; PCP Internal Medicine; Visit Provider Student in an Organized Health Care Education/Training Program | DX: R79.89 Other specified abnormal findings of blood chemistry (principal); W19.XXXA Unspecified fall, initial encounter; S82.209A Unspecified fracture of shaft of unspecified tibia, initial encounter for closed fracture; K59.00 Constipation, unspecified | CPT/HCPCS: 99222; 99232; 99233; 99239; 99499 ==

== ENCOUNTER 2024-04-04 08:14 | Outpatient (REF) | payer MEDICARE, MEDICAID, SELFPAY | END 2024-04-04 08:15 | disposition home or self-care (01) | LOC: HO.HOSX 08:14 | PROVIDERS: Visit Provider Physician Assistant | DX: Z13.89 Encounter for screening for other disorder (principal) ==

== ENCOUNTER 2024-04-08 08:14 | Outpatient (REF) | payer OTHER, MEDICARE, MEDICAID, SELFPAY ==
--- NOTE | ~2024-04-08 | XR_ITS ---
EXAMINATION: XR KNEE, LEFT CLINICAL INFORMATION: Pain. COMPARISON: CT left knee 03/12/2024. X-ray left knee 03/12/2024. TECHNIQUE: 3 views of the left knee. 2 views of the right knee. FINDINGS: LEFT KNEE: The bones are diffusely demineralized. Redemonstration of a comminuted fracture of the proximal tibia involving the medial and lateral tibial condyle/plateaus as well as minimally displaced fracture of the fibular head and neck. Redemonstration of mild depression of the lateral tibial plateau surface. There is evidence of some bridging callus formation. Exam limited due to patient positioning. There is valgus angulation. RIGHT KNEE: The bones are diffusely demineralized. Mild narrowing of the medial compartment. No significant joint effusion. XR/XR knee RT 2V IMPRESSION: 1. Redemonstration of a comminuted fracture of the proximal tibia involving the medial and lateral tibial condyle/plateaus as well as minimally displaced fracture of the fibular head and neck. Redemonstration of mild depression of the lateral tibial plateau surface. There is evidence of some bridging callus formation. 2. Mild degenerative changes right knee. Bones are diffusely demineralized.
--- NOTE | ~2024-04-08 | XR_ITS ---
EXAMINATION: XR KNEE, LEFT CLINICAL INFORMATION: Pain. COMPARISON: CT left knee 03/12/2024. X-ray left knee 03/12/2024. TECHNIQUE: 3 views of the left knee. 2 views of the right knee. FINDINGS: LEFT KNEE: The bones are diffusely demineralized. Redemonstration of a comminuted fracture of the proximal tibia involving the medial and lateral tibial condyle/plateaus as well as minimally displaced fracture of the fibular head and neck. Redemonstration of mild depression of the lateral tibial plateau surface. There is evidence of some bridging callus formation. Exam limited due to patient positioning. There is valgus angulation. RIGHT KNEE: The bones are diffusely demineralized. Mild narrowing of the medial compartment. No significant joint effusion. XR/XR knee LT 2V IMPRESSION: 1. Redemonstration of a comminuted fracture of the proximal tibia involving the medial and lateral tibial condyle/plateaus as well as minimally displaced fracture of the fibular head and neck. Redemonstration of mild depression of the lateral tibial plateau surface. There is evidence of some bridging callus formation. 2. Mild degenerative changes right knee. Bones are diffusely demineralized.
== END 2024-04-08 08:15 | disposition home or self-care (01) ==
LOC: HO.HOSX 08:14
PROVIDERS: Visit Provider Physician Assistant
DX: M25.562 Pain in left knee (principal); M25.561 Pain in right knee
CPT/HCPCS: 73560; 99212

== ENCOUNTER 2024-04-08 14:33 | Outpatient (AMB) | payer MEDICARE, MEDICAID, SELFPAY ==
--- NOTE | 2024-04-08 14:43 | A.OFFVIS_ITS ---
Intake Visit Reasons: FC - right tibia plateau fx, DOI 03/12/24 Intake Note: Millie is an 83 year old female who presents today as a new patient for an evaluation of left tibia plateau fx, DOI 03/12/24. Patient reports that she fell landing on her left knee. She presented to [facility] ED where xrays were taken and placed in an ACL brace. Allergies benztropine [From Cogentin] Allergy (Mild, Verified 04/08/24 15:52) UNKNOWN cogentin Allergy (Unknown, Uncoded 04/08/24 15:52) Unknown HPI HPI FC - right tibia plateau fx, DOI 03/12/24: Details: 83-year-old female who presents to the office today for evaluation of left knee injury after a fall on her left side, 03/12/24. She currently states she has pain in her left knee which is aggravated with ambulation. [facility] Medical History (Updated 03/25/24 @ 00:02 by Wayne Diaz) Cerebral palsy Peripheral vascular disease Essential hypertension Impaired glucose tolerance Rheumatoid arthritis Hypercholesterolemia Osteoporosis Bipolar disorder Asthma Complete heart block Cardiac pacemaker in situ Surgical History History of cataract surgery H/O right knee surgery Hx of tonsillectomy Hx of elbow surgery Hx of colonoscopy History of permanent cardiac pacemaker placement Family History Father No problems noted. Mother CVD (cardiovascular disease) Arthritis Social History Household Members: Family Household Members Other:: 5 Housing: House Do you presently have visiting nurse or other home services: Yes Alcohol intake: never Patient Tobacco Use Status: Never used Tobacco service: No Cognitive needs: Yes (wheelchair) Hearing needs: No Vision needs: No Review of Systems Const All systems reviewed & are unremarkable except as noted in HPI and below Physical Exam Const General: cooperative, healthy appearing, comfortable, no acute distress, well developed and alert Orientation/consciousness: patient oriented x3 HEENT Head: Yes normal to inspection, Yes normocephalic and Yes atraumatic Eyes General: appearance normal, both eyes and all related structures Resp Effort & Inspection: normal respiratory effort and able to speak in complete sentences Cardio Rate: regular rate Peripheral pulses: Peripheral pulses 2+ throughout GI Palpation (GI): Soft to palpation Skin Lesions: no lesions Rashes: no rashes Neuro General: patient oriented x3 Extrem Other: Left knee: Skin intact, no erythema or joint effusion. Tenderness along the medial and lateral joint line. Full ROM with crepitus. Negative Jyoti?s. No ligamentous laxity. NVI. Results Reviewed Results Reviewed: Xrays were obtained in the office today and personally reviewed by me of the left knee which show tibial plateau fracture with dispalcement Assessment & Plan Assessment & Plan (1) Fracture, tibia: Code(s): S82.209A - Unspecified fracture of shaft of unspecified tibia, initial encounter for closed fracture Category: Medical Plan She will remain non weight bearing on the LLE for at least 2 months. she will co ntinue wearing her knee brace with transports. She will see me back in 6 weeks with new x-rays, sooner if needed. Orders: Orders XR knee RT 2V 04/08/24 M25.569 - Pain in unspecified knee XR knee LT 2V 04/08/24 M25.562 - Pain in left knee Patient Instructions: Scribed for Adarsh Whitaker PA-C, by Neri Bundy medical attendant, on 04/08/2024 at 2:30 PM EST. IAdarsh PA-C, have personally reviewed and agree with the information entered by the scribe. Coding Level of Care Code Global (48823) Diagnoses Fracture, tibia S82.209A
== END 2024-04-08 15:50 | disposition home or self-care (01) ==
PROVIDERS: PCP Internal Medicine; Visit Provider Physician Assistant
DX: S82.209A Unspecified fracture of shaft of unspecified tibia, initial encounter for closed fracture (principal)
CPT/HCPCS: 99213

== ENCOUNTER 2024-05-19 06:47 | Outpatient (REF) | payer MEDICARE, MEDICAID, SELFPAY | END 2024-05-19 06:48 | disposition home or self-care (01) | LOC: HO.HOSX 06:47 | PROVIDERS: Visit Provider Physician Assistant | DX: Z13.89 Encounter for screening for other disorder (principal) ==

== ENCOUNTER 2024-05-20 06:47 | Outpatient (REF) | payer MEDICARE, MEDICAID, SELFPAY ==
--- NOTE | ~2024-05-20 | XR_ITS ---
EXAMINATION: XR KNEE, LEFT CLINICAL INFORMATION: Pain in left knee. COMPARISON: April 08, 2024 and 03/12/2024 radiographs, CT 03/12/2024. TECHNIQUE: Two views of the left knee. FINDINGS: Diffuse demineralization with a somewhat mottled appearance in the distal femur redemonstrated. Redemonstration of a comminuted fracture of the proximal tibia involving the medial and lateral tibial condyles/plateaus and a mildly displaced comminuted fracture of the fibular head/neck with mild depression of the lateral tibial plateau surface. There is evidence of bridging callus formation. No significant joint effusion. XR/XR knee LT 2V IMPRESSION: Healing comminuted fracture of the proximal tibia and fibula.
== END 2024-05-20 06:48 | disposition home or self-care (01) ==
LOC: HO.HOSX 06:47
PROVIDERS: Visit Provider Physician Assistant
DX: M25.562 Pain in left knee (principal); S82.142D Displaced bicondylar fracture of left tibia, subsequent encounter for closed fracture with routine healing; X58.XXXD Exposure to other specified factors, subsequent encounter
CPT/HCPCS: 73560; 99212

== ENCOUNTER 2024-05-20 09:19 | Outpatient (AMB) | payer MEDICARE, MEDICAID, SELFPAY ==
--- NOTE | 2024-05-20 09:37 | A.OFFVIS_ITS ---
Vital Signs 05/20/24 09:39 Height 5 ft 2 in Weight 106 lb BMI 19.4 Intake Visit Reasons: OV - Left Tibial Plateau Fx 03/12/24 Intake Note: Millie is a 83 year old female who presents today for a follow up of Left Tibial Plateau Fx DOI: 03/12/24 She will remain non weight bearing on the LLE for at least 2 months. she will continue wearing her knee brace with transports. Allergies benztropine [From Cogentin] Allergy (Mild, Verified 05/20/24 09:38) UNKNOWN cogentin Allergy (Unknown, Uncoded 05/20/24 09:38) Unknown HPI HPI OV - Left Tibial Plateau Fx 03/12/24: Details: 83-year-old female who returns to the office today for a follow-up of left knee fracture, 03/12/24. She continues to remain not weight bearing on her LLE. She is unable to bend her knee due to the pain. She has been wearing her knee brace with transportation. [facility] Medical History (Updated 03/25/24 @ 00:02 by Wayne Diaz) Cerebral palsy Peripheral vascular disease Essential hypertension Impaired glucose tolerance Rheumatoid arthritis Hypercholesterolemia Osteoporosis Bipolar disorder Asthma Complete heart block Cardiac pacemaker in situ Surgical History History of cataract surgery H/O right knee surgery Hx of tonsillectomy Hx of elbow surgery Hx of colonoscopy History of permanent cardiac pacemaker placement Family History Father No problems noted. Mother CVD (cardiovascular disease) Arthritis Social History Household Members: Family Household Members Other:: 5 Housing: House Do you presently have visiting nurse or other home services: Yes Alcohol intake: never Patient Tobacco Use Status: Never used Tobacco service: No Cognitive needs: Yes (wheelchair) Hearing needs: No Vision needs: No Review of Systems Const All systems reviewed & are unremarkable except as noted in HPI and below Physical Exam Vital Signs: BMI result Body Mass Index 19.4 Const General: cooperative, healthy appearing, comfortable, no acute distress, well developed and alert Orientation/consciousness: patient oriented x3 HEENT Head: Yes normal to inspection, Yes normocephalic and Yes atraumatic Eyes General: appearance normal, both eyes and all related structures Resp Effort & Inspection: normal respiratory effort and able to speak in complete sentences Cardio Rate: regular rate Peripheral pulses: Peripheral pulses 2+ throughout GI Palpation (GI): Soft to palpation Skin Lesions: no lesions Rashes: no rashes Neuro General: patient oriented x3 Extrem Other: Left knee: Skin intact, no erythema or joint effusion. Mild tenderness along the proximal tibia. I am able to perform passive ROM of the hip and knee without limitations. NVI. Results Reviewed Results Reviewed: Xrays were obtained in the office today and personally reviewed by me of the left knee which show tibial plateau fracture with dispalcement and interval healing Assessment & Plan Assessment & Plan (1) Fracture, tibia: Code(s): S82.209A - Unspecified fracture of shaft of unspecified tibia, initial encounter for closed fracture Category: Medical Plan She will continue with non-weight bearing of the LLE. Non weight bearing ROM is okay. She will use the brace for transport only and see me back in 6 weeks w xrys, sooner if needed. Orders: Orders XR knee LT 2V 05/20/24 M25.562 - Pain in left knee Patient Instructions: Scribed for Adarsh Whitaker PA-C, by Neri Bundy certified medical assistant, on 05/20/2024 at 9:15 AM EST.? I, Adarsh Whitaker PA-C, have personally reviewed and agree with the information entered by the scribe. Coding Level of Care Code Global (04114) Diagnoses Fracture, tibia S82.209A
[2024-05-20 09:39] VITALS: BMI 19.4
== END 2024-05-20 10:42 | disposition home or self-care (01) ==
PROVIDERS: PCP Internal Medicine; Visit Provider Physician Assistant
DX: S82.209A Unspecified fracture of shaft of unspecified tibia, initial encounter for closed fracture (principal)
CPT/HCPCS: 99213

== ENCOUNTER 2024-11-29 14:09 | Outpatient (AMB) | payer MEDICARE, MEDICAID, SELFPAY ==
[2024-11-29 14:32] VITALS: BMI 19.4
--- NOTE | 2024-11-29 14:32 | A.OFFVIS_ITS ---
Vital Signs 11/29/24 14:32 Height 5 ft 2 in Weight 106 lb BMI 19.4 Intake Visit Reasons: f/u lt tib plateau fx w xrays Intake Note: Millie is a 83 year old female who presents today for a follow up of left tibial plateau fx, DOI: 03/12/24. Patient reports she continue to have pain that increases with movement of her leg. Allergies benztropine [From Cogentin] Allergy (Mild, Verified 11/29/24 14:35) UNKNOWN cogentin Allergy (Unknown, Uncoded 11/29/24 14:35) Unknown HPI HPI f/u lt tib plateau fx w xrays: Details: 84-year-old female returns to the office today for a follow-up left knee. I saw her back in April and requested a 6 week follow-up however some how the appointment was never made. She states that she has not been able to walk as much as she used to due to the ongoing weakness in her lower extremities. She also has severe degenerative joint disease which has caused multiple joint dislocations chronically in her fingers and toes. This limits her ability to hold onto objects like a cane or a walker or even put her foot down or in shoes. [facility] Medical History (Updated 11/29/24 @ 14:43 by Adarsh Whitaker PA-C) Cerebral palsy Peripheral vascular disease Essential hypertension Impaired glucose tolerance Rheumatoid arthritis Hypercholesterolemia Osteoporosis Bipolar disorder Asthma Complete heart block Cardiac pacemaker in situ Surgical History History of cataract surgery H/O right knee surgery Hx of tonsillectomy Hx of elbow surgery Hx of colonoscopy History of permanent cardiac pacemaker placement Family History Father No problems noted. Mother CVD (cardiovascular disease) Arthritis Social History Household Members: Family Household Members Other:: 5 Housing: House Do you presently have visiting nurse or other home services: Yes Alcohol intake: never Patient Tobacco Use Status: Never used Tobacco service: No Cognitive needs: Yes (wheelchair) Hearing needs: No Vision needs: No Review of Systems Const All systems reviewed & are unremarkable except as noted in HPI and below Physical Exam Vital Signs: BMI result Body Mass Index 19.4 Const General: cooperative, healthy appearing, comfortable, no acute distress, well developed and alert Orientation/consciousness: patient oriented x3 HEENT Head: Yes normal to inspection, Yes normocephalic and Yes atraumatic Eyes General: appearance normal, both eyes and all related structures Resp Effort & Inspection: normal respiratory effort and able to speak in complete sentences Cardio Rate: regular rate Peripheral pulses: Peripheral pulses 2+ throughout GI Palpation (GI): Soft to palpation Skin Lesions: no lesions Rashes: no rashes Neuro General: patient oriented x3 Extrem Other: Left knee: Skin intact, no erythema or joint effusion. She is able to actively flex and extend the knee however her motion is limited due to a chronic flexion contracture. NVI. Results Reviewed Results Reviewed: Xrays were obtained in the office today and personally reviewed by me of the left knee which show healed tibial plateau fracture with joint collapse Assessment & Plan Assessment & Plan (1) Fracture, tibia: Code(s): S82.209A - Unspecified fracture of shaft of unspecified tibia, initial encounter for closed fracture Category: Medical Qualifiers: Encounter type: subsequent encounter Tibia location: proximal Fracture type: closed Laterality: left Fracture healing: with routine healing Plan: She can begin weight-bearing as tolerated in the left lower extremity however given her chronic joint disease and flexion contracture I do not feel that she walks much at baseline. There are no limitations as far as range of motion which she can perform as tolerated. She should work on gait training, strengthening and conditioning as tolerated. See me back as needed. Orders: Orders XR knee LT 2V Today M25.562 - Pain in left knee Coding Level of Care Code Est Pt Level 3 (15322) Complex EM visit Add On G2211 Diagnoses Fracture, tibia S82.209A Encounter type: subsequent encounter Tibia location: proximal Fracture type: closed Laterality: left Fracture healing: with routine healing
== END 2024-11-29 14:45 | disposition home or self-care (01) ==
PROVIDERS: PCP Internal Medicine; Visit Provider Physician Assistant
DX: S82.209A Unspecified fracture of shaft of unspecified tibia, initial encounter for closed fracture (principal)
CPT/HCPCS: 99213; G2211

== ENCOUNTER → 2024-11-29 14:11 | Outpatient (BNV) | payer MEDICARE, MEDICAID, SELFPAY | PROVIDERS: Visit Provider Radiology Diagnostic Radiology | DX: M25.562 Pain in left knee (principal) | CPT/HCPCS: 73560 ==

== ENCOUNTER 2024-11-29 14:34 | Outpatient (REF) | payer MEDICARE, MEDICAID, SELFPAY ==
--- NOTE | ~2024-11-29 | XR_ITS ---
EXAMINATION: XR KNEE 1-2 VIEWS LEFT HISTORY: M25.562 - Pain in left knee COMPARISON: Comparison is made with the prior examination dated 05/20/2024. FINDINGS: Three views of the left knee are submitted. The bones are markedly osteopenic. Again seen is depression of the lateral tibial plateau. The fracture line is not well seen. Similarly, the previously noted fractures of the medial tibial plateau and the fibular neck are not well visualized, and are likely healed. The joint spaces are preserved. There is no joint effusion. XR/XR knee LT 2V IMPRESSION: Marked osteopenia. Probable complete healing of the previously seen bilateral tibial plateau fractures and the fracture of the fibular neck. There is persistent depression of the lateral tibial plateau. Electronically signed by: Marlo Hobbs MD 12/09/2024 10:57 AM JACKELINE
== END 2024-11-29 14:35 | disposition home or self-care (01) ==
LOC: HO.HOSX 14:34
PROVIDERS: Visit Provider Physician Assistant
DX: M25.562 Pain in left knee (principal); S82.202D Unspecified fracture of shaft of left tibia, subsequent encounter for closed fracture with routine healing
CPT/HCPCS: 73560; 99212

== ENCOUNTER 2025-06-27 09:11 | Inpatient (IN) | payer MEDICARE, MEDICAID, SELFPAY ==
[2025-06-27] VITALS (12 sets, daily range): BP systolic 115–153; BP diastolic 42–75; PULSE 74–97; RESP 16–26; TEMP 36.5–36.8; O2SAT 84–100; BMI 21.5
--- NOTE | ~2025-06-27 | XR_ITS ---
EXAMINATION: XR KNEE, LEFT CLINICAL INFORMATION: pain, unclear if trauma COMPARISON: 12/01/2024, 05/20/2024, 04/08/2024. TECHNIQUE: Three views of the left knee. FINDINGS: Marked osteopenia of the osseous structures again noted. No definite acute fracture identified. Again noted is depression of the lateral tibial plateau, with no discrete fracture line visible. Similarly, the previously noted fractures of the medial tibial plateau and fibular neck are not well visualized, likely indicating they are healed. Mild tricompartmental joint space narrowing again noted. There is notable patella marcos. There is a probable small to moderate-sized suprapatellar joint effusion. Soft tissues are unremarkable. XR/XR knee LT 3V IMPRESSION: 1. Marked osteopenia. No definite acute fracture. 2. Likely complete healing of the previously seen bilateral tibial plateau fractures and the fracture of the fibular neck. There is persistent depression of the lateral tibial plateau. 3. Patella marcos. 4. Small to moderate joint effusion. Electronically signed by: Venkatseh May MD 06/27/2025 12:15 PM EDT
--- NOTE | ~2025-06-27 | XR_ITS ---
EXAMINATION: XR CHEST CLINICAL INFORMATION: shortness of breath COMPARISON: March 12, 2024. TECHNIQUE: Frontal view of the chest was obtained. FINDINGS: Pulmonary reticular pattern. Linear opacity right lower hemithorax. Cardiomediastinal silhouette size is prominent. Calcified plaque thoracic aorta. Left-sided pacemaker reservoir with 2 intact electrode leads in the right heart chambers. Osteopenia versus osteoporosis. S-shaped curvature of the thoracolumbar spine. Multilevel spondylosis. XR/XR chest 1V IMPRESSION: Chronic interstitial lung disease. Cardiomegaly. Atherosclerosis disease. Scoliosis and multilevel spondylosis. Electronically signed by: Jaron Khoury MD 06/27/2025 01:57 PM EDT
--- NOTE | ~2025-06-27 | XR_ITS ---
EXAMINATION: XR HIP, LEFT CLINICAL INFORMATION: left hip pain COMPARISON: October 09, 2008 TECHNIQUE: AP and cross lateral view of the left hip. AP view pelvis. FINDINGS: No acute cortical disruption or malalignment. Osteopenia versus osteoporosis. Degenerative changes in the symphysis pubis. S-shaped curvature of the lower lumbar spine. XR/XR hip LT w PEL1V IMPRESSION: No acute fracture or dislocation. Degenerative changes. Scoliosis. Electronically signed by: Jaron Khoury MD 06/27/2025 01:58 PM EDT
--- NOTE | ~2025-06-27 | US_ITS ---
EXAMINATION: US TRIPLEX LOWER EXTREMITY, LEFT CLINICAL INFORMATION: Left lower extremity pain and edema. COMPARISON: None available. TECHNIQUE: Color-flow triplex imaging with spectral analysis and compression Doppler were performed on the left lower extremity. FINDINGS: As per technologist note, somewhat limited exam due to inability to completely compress due to patient pain, contractions, and frequent cramping. Respiratory variation, normal compression and augmented flow are noted throughout the left lower extremity within these confines. The visualized common femoral vein, superficial femoral vein, profunda femoral vein, popliteal vein and midcalf peroneal and posterior tibial venous segments show no evidence of deep venous thrombosis. There is no Layne's cyst. US/US venous duplex LE LT IMPRESSION: No evidence of deep venous thrombosis involving the left lower extremity. Electronically signed by: Venkatesh May MD 06/27/2025 04:17 PM EDT
[2025-06-27] MEDS: Albuterol Sulfate 2.5 MG, Albuterol/Iprat 2.5/0.5MG 3 ML 3 ML INHALE (09:37)
--- NOTE | 2025-06-27 10:22 | ECG_ITS ---
Test Reason : fall Blood Pressure : */* mmHG Vent. Rate : 91 BPM Atrial Rate : 91 BPM P-R Int : 228 ms QRS Dur : 150 ms QT Int : 410 ms P-R-T Axes : 38 263 80 degrees QTcB Int : 504 ms Atrial-sensed ventricular-paced rhythm with prolonged AV conduction Abnormal ECG When compared with ECG of 12-Mar-2024 15:01, Vent. rate has decreased by 23 bpm Referred By: Generic ED Physician Electronically Signed By: MICHELLE MELENDEZ MD
--- OUTSIDE RECORDS SUMMARY | 2025-06-27 10:28 | XMS_ITS | Encounter Summary ---
Author Organization [facility] Address [address] [place] [address] Care Team Providers Care Supervisor Forming Department Name Role Phone Breezy Carreno MD Primary Care Provider [phone]- [phone] Encounter Details Date Type Department Care Team (Late st Contact Info) Description 01/08/2025 Lab Requisition [facility] Lab [address] [place] [address] Breezy Carreno MD [address] [place] [address] Essential (primary) hypertension; Hyperlipidemia, unspecified; Peripheral vascular disease, unspecified (CMS/HCC V24) Social History Tobacco Use Types Packs/Day Years Used Date Smoking Tobacco: Never Assessed Comments Unknown Sex and Gender Information Value Date Recorded Sex Assigned at Not on file Legal Sex Female 1:32 PM EDT Gender Identity Not on file Sexual Orientation Not on file documented as of this encounter Plan of Treatment Not on file documented as of this encounter Procedures Procedure Name Priority Date/Time Associated Diagnosis Comments COMPLETE BLOOD COUNT Routine 01/09/2025 7:23 AM EST Essential (primary) hypertension Hyperlipidemia, unspecified Peripheral vascular disease, unspecified (CMS/HCC) BASIC METABOLIC PANEL Routine 01/09/2025 7:23 AM EST Essential (primary) hypertension Hyperlipidemia, unspecified Peripheral vascular disease, unspecified (CMS/HCC) documented in this encounter Results * Basic metabolic panel (01/09/2025 7:23 AM EST) Sodium 137 133 - 145 mmol/L LAB CHEMISTRY METHOD 01/09/2025 1:10 PM EST [facility] Potassium 4.6 3.5 - 5.5 mmol/L LAB CHEMISTRY METHOD 01/09/2025 1:[address] [facility] Chloride 103 96 - 110 mmol/L LAB CHEMISTRY METHOD 01/09/2025 1:[address] [facility] CO2 31 21 - 32 mmol/L LAB CHEMISTRY METHOD 01/09/2025 1:[address] [facility] Anion Gap 3 3 - 11 LAB CHEMISTRY METHOD 01/09/2025 1:[address] [facility] Glucose 70 70 - 100 mg/dL LAB CHEMISTRY METHOD 01/09/2025 1:[address] [facility] BUN 13 5 - 25 mg/dL LAB CHEMISTRY METHOD 01/09/2025 1:[address] [facility] Creatinine 0.60 0.50 - 1.10 mg/dL LAB CHEMISTRY METHOD 01/09/2025 1:[address] [facility] eGFR 89 >=60 mL/min/1. 73m2 LAB CHEMISTRY METHOD 01/09/2025 1:[address] [facility] Comment:Calculation based on the Chronic Kidney Disease Epidemiology Collaboration (CKD-EPI) equation refit without adjustment for race. BUN/Creatinine Ratio 21.7 LAB CHEMISTRY METHOD 01/09/2025 1:[address] [facility] Calcium 9.0 8.5 - 10.5 mg/dL LAB CHEMISTRY METHOD 01/09/2025 1:[address] [facility] Blood Venous blood specimen / Unknown Venipuncture / Unknown 01/09/2025 7:23 AM EST 01/09/2025 11:23 AM EST us Breezy Carreno MD LAB BLOOD ORDERABLES Final Result [facility] [address] [place] [address], [place] [phone] * (ABNORMAL) Complete blood count (01/09/2025 7:23 AM EST) [facility] WBC 7.1 4.8 - 10.8 K/mcL LAB HEMETOLOGY METHOD 01/09/2025 12:[address] [facility] RBC 3.60(L) 3.80 - 4.80 M/mcL LAB HEMETOLOGY METHOD 01/09/2025 12:[address] [facility] Hemoglobin 8.9(L) 11.5 - 16.0 g/dL LAB HEMETOLOGY METHOD 01/09/2025 12:[address] [facility] Hematocrit 31.3(L) 35.0 - 47.0 % LAB HEMETOLOGY METHOD 01/09/2025 12:[address] [facility] MCV 86.0 79.0 - 98.0 FL LAB HEMETOLOGY METHOD 01/09/2025 12:[address] [facility] MCH 24.5(L) 27.0 - 32.0 pcg LAB HEMETOLOGY METHOD 01/09/2025 12:[address] [facility] MCHC 28.4(L) 32.0 - 37.0 g/dL LAB HEMETOLOGY METHOD 01/09/2025 12:[address] [facility] RDW 16.7(H) 11.0 - 15.0 % LAB HEMETOLOGY METHOD 01/09/2025 12:[address] [facility] Platelets 391 130 - 400 K/mcL LAB HEMETOLOGY METHOD 01/09/2025 12:[address] [facility] MPV 8.8 7.0 - 11.0 FL LAB HEMETOLOGY METHOD 01/09/2025 12:[address] [facility] NRBC 0.0 <1.0 % LAB HEMETOLOGY METHOD 01/09/2025 12:[address] [facility] NRBC Absolute 0.00 <0.10 K/mcL LAB HEMETOLOGY METHOD 01/09/2025 12:50 PM EST [facility] Blood Venous blood specimen / Unknown Venipuncture / Unknown 01/09/2025 7:23 AM EST 01/09/2025 11:23 AM EST Breezy Carreno MD LAB BLOOD ORDERABLES Final Result [facility] [address] [place] [address], documented in this encounter Visit Diagnoses Diagnosis Essential (primary) hypertension Unspecified essential hypertension Hyperlipidemia, unspecified Peripheral vascular disease, unspecified (CMS/HCC V24) Peripheral vascular disease, unspecified documented in this encounter Additional Health Concerns Infection Onset Date Last Indicated Resolved Time Respiratory Rule-Out 01/12/2025 01/11/2025 025 6:30 PM EST Influenza 01/13/2025 01/13/2025 02/06/2025 7:06 PM EDT Respiratory Rule-Out 05/17/2025 05/16/2025 025 3:38 PM EDT documented as of this encounter Care Teams Supervisor Forming Department Relationship Specialty Start Date End Date Breezy Carreno MD [address] [place] [id number] PCP - General Internal Medicine 01/11/25 documented as of this encounter
--- OUTSIDE RECORDS SUMMARY | 2025-06-27 10:28 | XMS_ITS | Patient Health Record ---
Author Organization [facility] Address [address] [place] [id number] Care Team Providers Care Ticket Sales Supervisor Name Role Phone Marlo Teran Unavailable [phone] Reason For Referral No Information Plan Of Treatment No Information
--- NOTE | 2025-06-27 11:16 | ED.GENADULT ---
HPI - General Adult General Chief complaint: Extremity Injury, Lower Stated complaint: Fall, laceration Time Seen by Provider: 06/27/25 11:16 History of Present Illness ED Provider: Lakisha ELMORE narrative: The patient is an 84-year-old woman who lives at the [facility]. She has been living there since 03/17/2024 when she was last discharged from this hospital. She is severely disabled because of rheumatoid arthritis. She is nonambulatory. She gets around in a wheelchair. A Wesley lift is required for moving her. The patient was sent here by ambulance today because of pain in her left leg. She has a dressing on a wound to the right gross. However her chief complaint is pain in the left leg, both in the region of the left hip and the left knee. The patient states that the wound to the right gross occurred when she accidentally scraped his gross against something on her wheelchair during position changing. She denies having actually fallen. She can not account for why she has pain in her left leg. She denies any head injury. Other than pain in her left leg she is not complaining of anything. I spoke to the patient's nurse at the facility. The nurse tells me that the patient seemed to have a great deal of pain in her left leg today which was exacerbated by attempts at moving her. This seems to be a new pain. They could not determine if this was pain in the knee or the hip. Given the degree of pain she was sent here. The nurse at the facility is unaware of any definite fall. On arrival here the patient was noted to be somewhat hypoxic. She has a history of asthma. According to staff at the assisted she requires occasional DuoNeb treatments and has p.r.n. oxygen ordered. Most of the time the patient does not require any supplemental oxygen. The patient denies having had any fever, sweats, chills. There was no report of any fever at the assisted. The patient is DNR/DNI. Related Data Home Medications ?Medication ?Instructions ?Recorded ?Confirmed aspirin 81 mg tablet,delayed 81 mg PO BEDTIME 03/12/24 03/12/24 release diclofenac sodium 1 % topical gel 2 g topical QID PRN Pain 03/12/24 03/12/24 (Voltaren Arthritis Pain) lactulose 10 gram/15 mL oral PO 05/20/24 solution pantoprazole 40 mg tablet,delayed 40 mg PO DAILY@0630 05/20/24 release sertraline 25 mg tablet 25 mg PO DAILY 05/20/24 fluticasone furoate 100 1 ea inhalation DAILY 11/29/24 mcg-vilanterol 25 mcg/dose inhalation powder (Breo Ellipta) tamsulosin 0.4 mg capsule 0.4 mg PO DAILY 11/29/24 ipratropium 0.5 mg-albuterol 3 mg ml inhalation 06/27/25 (2.5 mg base)/3 mL nebulization soln Previous Rx's ?Medication ?Instructions ?Recorded albuterol sulfate 90 mcg/actuation 2 puff inhalation Q6H PRN for 05/27/22 aerosol inhaler muscle spasm #8.5 ea acetaminophen 325 mg tablet 650 mg (2 x 325 mg) PO Q6H PRN 03/16/24 Pain, Mild (Pain Scale 1-3) #0 tabs montelukast 10 mg tablet 10 mg PO BEDTIME #90 tabs 05/09/24 Allergies Allergy/AdvReac Type Severity Reaction Status Date / Time benztropine (From Cogentin) Allergy Mild UNKNOWN Verified 06/27/25 09:33 cogentin Allergy Unknown Unknown Uncoded 11/29/24 14:35 Review of Systems Review of Systems: Yes all other systems are reviewed and are negative [facility] Past Medical History Medical History (Updated 06/27/25 @ 16:56 by Alan Banuelos MD) Cerebral palsy Peripheral vascular disease Essential hypertension Impaired glucose tolerance Rheumatoid arthritis Hypercholesterolemia Osteoporosis Bipolar disorder Asthma Complete heart block Cardiac pacemaker in situ Surgical History History of cataract surgery H/O right knee surgery Hx of tonsillectomy Hx of elbow surgery Hx of colonoscopy History of permanent cardiac pacemaker placement Family History Family History Father No problems noted. Mother CVD (cardiovascular disease) Arthritis Social History Social History Household Members: Family Household Members Other:: 5 Housing: House Do you presently have visiting nurse or other home services: Yes Alcohol intake: never Patient Tobacco Use Status: Never used Tobacco Smoked in Last 30 Days: No Use of substances other than those prescribed or required for medical reasons: No Advance Directives: No Advance Directives Information Provided: Yes service: No Cognitive needs: Yes (wheelchair) Hearing needs: No Vision needs: No Physical Exam ED Vital Signs: Vital Signs - 24 hr 06/27/25 09:29 06/27/25 09:34 06/27/25 09:38 Temperature 98.2 F Pulse Rate 97 91 93 Respiratory Rate 16 18 18 Blood Pressure 115/61 Pulse Oximetry 85 L 97 Oxygen Delivery Method Room Air Nasal Cannula Oxygen Flow Rate 2 06/27/25 14:44 06/27/25 14:49 06/27/25 15:16 Temperature 98.2 F Pulse Rate 91 84 74 Respiratory Rate 18 18 19 Blood Pressure 120/42 L Pulse Oximetry 84 L 94 Oxygen Delivery Method Room Air Nasal Cannula Oxygen Flow Rate 06/27/25 17:07 Temperature Pulse Rate 81 Respiratory Rate 16 Blood Pressure 132/64 Pulse Oximetry 97 Oxygen Delivery Method Nasal Cannula Oxygen Flow Rate 2 BMI result Body Mass Index 21.5 Const Other: The patient is a very chronically ill 84-year-old woman. She has obvious severe deformities to multiple fingers of both hands secondary to chronic arthritis. She looks quite deconditioned. She is awake and alert and seems pleasant. HENMT Other: The face is symmetrical. ?Mucous membranes moist. Eyes Other: Pupils are round equal, conjunctivae are clear, extraocular movements intact Neck Neck: Yes normal visual inspection, Yes full ROM and Yes no JVD Resp Other: The patient had inspiratory and expiratory wheezes bilaterally. She seemed to be come mildly short of breath while speaking or trying to move around. Cardio Rate: regular rate Rhythm: regular rhythm Heart sounds: S1 normal heart sound present and S2 normal heart sound present GI Other: Abdomen is soft and nontender Skin Other: The patient has a abrasion to the skin of the right gross which has been dressed at the assisted with a Xeroform dressing. I do not see an indication for taking down this dressing. This was apparently applied this morning. Neuro Other: The patient is awake and alert and has a fairly normal mental status. I think she is reasonably well oriented. Cranial nerves seem intact. She moves her arms normally. She is able to use the right leg fairly well. The left leg seems limited by pain although she can wiggle the toes of the left foot and move the left ankle. She seems to have a lot of pain of the left knee. Extrem Other: The patient has severe chronic deformities to the fingers of the hands consistent with rheumatoid arthritis. The right leg shows no dramatic abnormalities aside from a dressing to a wound of the skin of the right gross. The right knee seems straight and appropriate. The left knee seems to shows some deformity and swelling at the left knee. She has a lot of tenderness mostly on the medial aspect of the knee. There is some edema to the soft tissues of the posterior aspect of the left upper leg. Compartments of the thigh and the lower legs seem soft. The feet are well-perfused. Medications Administered Discontinued Medications Generic Name Dose Route Start Last Admin Trade Name Freq PRN Reason Stop Dose Admin Acetaminophen 975 mg 06/27/25 11:36 06/27/25 11:46 Acetaminophen 325 Mg Tablet PO 06/27/25 11:37 975 mg ONCE ONE Administration Albuterol/Ipratropium 3 ml 06/27/25 14:53 06/27/25 15:14 Albuterol/Iprat 2.5/0.5mg 3 Ml Ampul.Neb INHALE 06/27/25 14:54 3 ml ONCE ONE Administration Albuterol Sulfate 2.5 mg/ 0 mg 06/27/25 09:33 06/27/25 09:37 Albuterol/Ipratropium 3 ml INHALE 06/27/25 09:34 1 dose ONCE ONE Administration Methylprednisolone Sodium Succinate 80 mg 06/27/25 14:53 06/27/25 15:08 Methylprednisolone Sod Succ 125 Mg/2 Ml Vial IVPUSH 06/27/25 14:54 80 mg ONCE ONE Administration Medical Decision Making Medical Decision Making [facility] Narrative: The patient is an 84-year-old woman with a history of severe rheumatoid arthritis which is manifested primarily in the fingers. She has been living at the [facility] for a year and a half. She has not been ambulatory during that time. She gets around in a wheelchair. A Wesley lift is required for transfers. She presents today with a chief complaint of left leg pain that seems to center primarily with pain at the medial aspect of the left knee. She has a left knee x-ray that shows no definite acute process. Also a left hip x-ray that shows no acute process. Together I think both the left knee and the left hip x-rays visualize the entire left femur. She has a negative left leg DVT ultrasound. My overall impression is that with regard to her left leg pain, her chief complaint, this is probably a muscular pain or some kind of other soft tissue pain. A separate issue was the patient has oxygenation. Her oxygenation on room air was about 85%. On exam she had wheezes. She has a history of asthma. According to her assisted she is not on oxygen and does not normally have an oxygen requirement. She was therefore given bronchodilator treatments and IV steroids. She continued to have an oxygen requirement and so will be admitted to the hospitalist service. Lab Data 06/27/25 11:42 06/27/25 11:42 Labs: Lab Results 06/27/25 Range/Units 11:42 WBC 10.9 H (4.8-10.8) X10*3/uL RBC 3.34 L (4.20-5.50) X10*6/uL Hgb 8.0 L (12.0-16.0) g/dl Hct 26.2 L (37.0-47.0) % MCV 78.4 L (80.0-98.0) fL MCH 24.0 L (27.0-33.0) pg MCHC 30.5 L (31.0-35.0) g/dl RDW 17.2 H (11.0-16.0) % Plt Count 292 (160-400) X10*3/uL MPV 8.2 L (9.4-12.3) fL Immature Gran % (Auto) 0.4 (0.0-0.4) % Neut % (Auto) 84.3 H (45-73) % Lymph % (Auto) 9.6 L (20-40) % Edmunds % (Auto) 4.6 (2-11) % Eos % (Auto) 0.7 (0-4) % Baso % (Auto) 0.4 (0-2) % Lymph # (Auto) 1.0 L (1.2-4.9) X10*3/uL Edmunds # (Auto) 0.5 (0.1-1.2) X10*3/uL Eos # (Auto) 0.1 (0.0-0.4) X10*3/uL Baso # (Auto) 0.0 (0.0-0.2) X10*3/uL Abs Immat Gran (auto) 0.04 H (0.00-0.03) X10*3/uL Absolute Neuts (auto) 9.2 H (2.0-8.3) x10*3/uL Absolute Nucleated RBC 0.000 (0.0-0.012) X10*3/uL Nucleated RBC % (auto) 0.0 (0.0-0.2) /100WBC Sodium 144 (135-145) mmol/L Potassium 4.0 (3.3-5.1) mmol/L Chloride 109 H (96-108) mmol/L Carbon Dioxide 25 (22-29) mmol/L Anion Gap 14 (12-20) BUN 10 (9-16) mg/dL Creatinine 0.62 (0.5-1.4) mg/dL Estim Creat Clear Calc 48.5 Estimated GFR > 60 Random Glucose 122 H (60-115) mg/dL Calcium 8.8 (8.4-10.2) mg/dL Magnesium 2.1 (1.6-2.6) mg/dL Total Bilirubin 0.3 (0.0-1.0) mg/dL Direct Bilirubin 0.1 (0.0-0.5) mg/dL AST 19 (5-31) U/L ALT 11 (0-31) U/L Alkaline Phosphatase 93 (39-117) U/L Troponin I High Sens 9.6 D (<3.5-17.0) ng/L B-Natriuretic Peptide 214 H (<100) pg/mL Total Protein 6.7 (6.5-8.0) g/dL Albumin 3.7 (3.5-5.0) g/dL Influenza Type A (PCR) NEGATIVE (Negative) Influenza Type B (PCR) NEGATIVE (Negative) RSV RNA Qual (PCR) NEGATIVE (Negative) SARS-CoV-2 RNA (RT-PCR) NEGATIVE (Negative) Critical Care Time Critical Care Time Critical Care Time: Yes Total Critical Care Time: 35 Attestation: The patient was critically ill with a high probability of imminent or life-threatening deterioration. ?I spent greater than 30 minutes of discontinuous time evaluating the patient, delivering critical care at the bedside, discussing evaluating data with consultants. ?Critical care time does not include time spent performing separately billable procedures or teaching. ?Time spent performing critical care with 35 minutes. Discharge Plan Discharge Clinical Impression: Hypoxia, Asthma exacerbation, Left leg pain, Rheumatoid arthritis Patient Disposition: Admitted As Inpatient Print Language: Guatemalan
--- NOTE | 2025-06-27 11:22 | PC.NURSE ---
pt states that last february she fell and broke her leg. She came to [facility] and was DCed to [facility] in [place] where she states she was supposed to start PT but has not had any PT after 1 appt. She fell yesterday and sustained an injury to her right gross which is dressed by SNF. Wound is clean, dry, not bleeding, no warmth, no drainage. She states that her left knee since the fall is very painful and she is unable to move it at all. Pt was trialed off O2 since her RT treatment. Pt arrived on RA with EMS rpeorts of high 90s SpO2. In ED she was hypoxic in the mid 80s. Denies SOB. Reports asthma hx and intermittent O2 use PRN. After RT rx pt continues to dip into 80s on RA. placed back on 2L per MD.
[2025-06-27 11:46] LABS: MANUAL DIFF FLAG NO
[2025-06-27 11:49] LABS: Hematocrit 26.2 % (37.0-47.0); Hemoglobin 8.0 g/dl (12.0-16.0); Imm Gran Abs Auto 0.04 X10*3/uL (0.00-0.03); Imm Gran Pct Auto 0.4 % (0.0-0.4); Lymphocytes Absolute Auto 1.0 X10*3/uL (1.2-4.9); Mean Corpuscular HGB Conc 30.5 g/dl (31.0-35.0); Mean Corpuscular Hemoglobin 24.0 pg (27.0-33.0); Mean Corpuscular Volume 78.4 fL (80.0-98.0); NRBC Abs Auto 0.000 X10*3/uL (0.0-0.012); NRBC Pct Auto 0.0 /100WBC (0.0-0.2); Platelet Count 292 X10*3/uL (160-400); Red Blood Count 3.34 X10*6/uL (4.20-5.50); White Blood Count 10.9 X10*3/uL (4.8-10.8)
[2025-06-27 12:03] LABS: Alanine Aminotransferase 11 U/L (0-31); Albumin Level 3.7 g/dL (3.5-5.0); Alkaline Phosphatase 93 U/L (39-117); Anion Gap 14 (12-20); Aspartate Amino Transferase 19 U/L (5-31); Blood Urea Nitrogen 10 mg/dL (9-16); Calcium 8.8 mg/dL (8.4-10.2); Carbon Dioxide 25 mmol/L (22-29); Chloride 109 mmol/L (96-108); Creatinine Clr Calc Pharmacy 48.5; Estimated Glomerular Filt Rate > 60; Magnesium 2.1 mg/dL (1.6-2.6); Potassium 4.0 mmol/L (3.3-5.1); Sodium 144 mmol/L (135-145); Total Protein 6.7 g/dL (6.5-8.0)
[2025-06-27 12:08] LABS: B Type Natriuretic Peptide 214 pg/mL (<100)
[2025-06-27 12:09] LABS: Troponin-I High Sensitivity 9.6 ng/L (<3.5-17.0)
[2025-06-27 12:29] LABS: Resp Syncy Virus RNA Qual PCR NEGATIVE (Negative); SARS COV2 PCR INHOUSE NEGATIVE (Negative)
[2025-06-27] MEDS: Albuterol/Iprat 2.5/0.5MG 3 ML AMPUL.NEB INHALE ×2 (15:14→19:17)
--- NOTE | 2025-06-27 17:15 | PM.IMHP ---
History of Present Illness Date of Service: 06/27/25 Attending physician on admission: [facility] Chief Complaint: Left knee pain Pt is an 84-year-old female with a PMH significant for cerebral palsy, complete heart block s/p pacemaker in place, moderate persistent asthma, rheumatoid arthritis, anemia, dysphagia, bipolar disorder, and displaced bicondylar fracture of left tibia?who presents to the ED for evaluation left leg and knee pain. Pt initially was found to have multiple left leg fractures of tibia and fibula on on 02/2024 that was treated nonsurgically as pt was a risk for periprosthetic fracture and poor healing. Since that time pt has been a resident at a SNF and unable to ambulate at baseline. Last night pt reports she twisted her left leg when transferring from wheelchair to bed, though pt vague as to how this happened. Apparently uses a Wesley lift for transfer. Denies fall. In triage pt was noted to be hypoxic in the mid 80s on RA. Pt not on home O2. States he has had an increased cough occasionally productive with the past few weeks. Has had increased SOB and difficulty breathing in the past few days. Denies chest pain/pressure, palpitations. No fever or chills. In the ED pt was tachycardic up to 97 and hypoxic as low as 84% on RA. Labs were significant for microcytic anemia of 8.0/26.2 and BNP 214. No significant leukocytosis or electrolyte abnormalities. Renal and hepatic function around baseline. Tested negative for flu, COVID, RSV. CXR showed chronic interstitial lung disease and cardiomegaly, but no consolidation. Left knee x-ray negative for acute fracture. Hip and pelvis x-ray negative for acute fracture or dislocation. Venous duplex ultrasound of left lower extremity negative for DVT. EKG demonstrated a regular paced rhythm with prolonged AV conduction, similar to prior EKGs. Pt was treated in the ED with DuoNebs and Solu-Medrol. Pt is admitted to the hospital for treatment and further evaluation of acute hypoxic respiratory failure in the setting of asthma exacerbation not sufficiently responsive to ED treatments. Review of Systems Review of Systems: Negative except for that which is stated in the HPI. [facility] Medical History (Updated 06/27/25 @ 18:18 by SHEFALI Jung) Cerebral palsy Peripheral vascular disease Essential hypertension Impaired glucose tolerance Rheumatoid arthritis Hypercholesterolemia Osteoporosis Bipolar disorder Asthma Complete heart block Cardiac pacemaker in situ Family History Father No problems noted. Mother CVD (cardiovascular disease) Arthritis Surgical History History of cataract surgery H/O right knee surgery Hx of tonsillectomy Hx of elbow surgery Hx of colonoscopy History of permanent cardiac pacemaker placement Social History Household Members: Family Household Members Other:: Great Niece Housing: House Do you presently have visiting nurse or other home services: No (patient came from rehab) Alcohol intake: never Patient Tobacco Use Status: Never used Tobacco Smoked in Last 30 Days: No Use of substances other than those prescribed or required for medical reasons: No Currently Displaying Signs/Symptoms of Drug Intoxication Withdrawal: No Have you been hit, kicked, punched, or otherwise hurt by someone within the past year? If so, by whom?: No Do you feel safe in your current relationship?: No Is there a partner from a previous relationship who is making you feel unsafe now?: No Are you made to feel afraid or neglected: No Advance Directives: No Advance Directives Information Provided: Yes Do you have a plan to hurt others: No Plan Recently lost weight without trying: No How much weight loss: Not applicable Eating poorly because of decreased appetite: No Nutrition screen score: 0 Nutrition Risks: Dental problems and Difficulty chewing Patient : No : No Poor oral hygiene: No service: No Cognitive needs: Yes (wheelchair) Hearing needs: No Vision needs: No Meds Allergies Allergy/AdvReac Type Severity Reaction Status Date / Time benztropine (From Cogentin) Allergy Mild UNKNOWN Verified 06/27/25 09:33 cogentin Allergy Unknown Unknown Uncoded 11/29/24 14:35 Home Medications ?Medication ?Instructions ?Recorded ?Confirmed ?Last Taken ?Type lactulose 10 gram/15 mL oral 30 ml PO Q72H PRN No Bowel Movement 05/20/24 06/27/25 Unknown History solution pantoprazole 40 mg tablet,delayed 40 mg PO DAILY@0630 05/20/24 06/27/25 Unknown History release sertraline 25 mg tablet 25 mg PO DAILY 05/20/24 06/27/25 Unknown History fluticasone furoate 100 1 ea inhalation DAILY 11/29/24 06/27/25 Unknown History mcg-vilanterol 25 mcg/dose inhalation powder (Breo Ellipta) tamsulosin 0.4 mg capsule 0.4 mg PO DAILY 11/29/24 06/27/25 Unknown History acetaminophen 500 mg tablet 1,000 mg PO BID 06/27/25 06/27/25 Unknown History aspirin 325 mg tablet 325 mg PO DAILY 06/27/25 06/27/25 Unknown History bisacodyl 10 mg rectal suppository 10 mg AR DAILY PRN Constipation 06/27/25 06/27/25 Unknown History calcium carbonate 500 mg PO Q4H PRN Indigestion 06/27/25 06/27/25 Unknown History cetirizine 10 mg tablet (Zyrtec) 10 mg PO DAILY 06/27/25 06/27/25 Unknown History guaifenesin 100 mg/5 mL oral 200 mg PO Q4H PRN Cough 06/27/25 06/27/25 Unknown History liquid (Radha-Tussin) ipratropium 0.5 mg-albuterol 3 mg 3 ml inhalation BID 06/27/25 06/27/25 Unknown History (2.5 mg base)/3 mL nebulization soln ipratropium 0.5 mg-albuterol 3 mg 3 ml inhalation Q4H PRN Shortness 06/27/25 06/27/25 Unknown History (2.5 mg base)/3 mL nebulization Of Breath Or Wheezing soln melatonin 3 mg tablet 3 mg PO BEDTIME Sleep 06/27/25 06/27/25 Unknown History sennosides 8.6 mg-docusate sodium 1 tab-cap PO DAILY 06/27/25 06/27/25 Unknown History 50 mg tablet (Senna Plus) sennosides 8.6 mg-docusate sodium 2 tab-cap PO BEDTIME 06/27/25 06/27/25 Unknown History 50 mg tablet (Senna Plus) simethicone 80 mg chewable tablet 80 mg PO BEDTIME PRN Gas Pain 06/27/25 06/27/25 Unknown History sodium chloride 5 % eye drops 1 drp ophthalmic-Right TID 06/27/25 06/27/25 Unknown History (Da 128) sodium phosphates 19 gram-7 118 ml AR DAILY PRN Constipation 06/27/25 06/27/25 Unknown History gram/118 mL enema (Fleet Enema) Physical Exam Vital Signs and Narrative: Vital Signs: Last Vital Signs Temp 98.2 F 06/27/25 14:49 Pulse 81 06/27/25 17:07 Resp 16 06/27/25 17:07 BP 132/64 06/27/25 17:07 Pulse Ox 97 06/27/25 17:07 O2 Del Method Nasal Cannula 06/27/25 17:07 O2 Flow Rate 2 06/27/25 17:07 BMI result Body Mass Index 21.5 General: AOx3, no acute distress Resp: Diffuse wheezing bilaterally CVS: S1, S2, RRR GI: +BS, NT, no distention Skin: Warm, dry Neuro: Cranial nerves II-XII grossly intact bilaterally. Motor grossly intact bilaterally Extremities: No edema. Right upper extremities with evidence of severe RA, hands contracted. Left lower extremity without active ROM secondary to pain. No obvious trauma or ecchymosis to left leg. Psych: Appropriate affect Results Labs 06/29/25 05:46 06/28/25 06:40 Labs: Laboratory Results - last 24 hr 06/27/25 11:42 MCV 78.4 L MCH 24.0 L MCHC 30.5 L RDW 17.2 H Plt Count 292 MPV 8.2 L Immature Gran % (Auto) 0.4 Neut % (Auto) 84.3 H Lymph % (Auto) 9.6 L Kershaw % (Auto) 4.6 Eos % (Auto) 0.7 Baso % (Auto) 0.4 Lymph # (Auto) 1.0 L Kershaw # (Auto) 0.5 Eos # (Auto) 0.1 Baso # (Auto) 0.0 Abs Immat Gran (auto) 0.04 H Absolute Neuts (auto) 9.2 H Absolute Nucleated RBC 0.000 Nucleated RBC % (auto) 0.0 Anion Gap 14 Estim Creat Clear Calc 48.5 Estimated GFR > 60 Random Glucose 122 H Calcium 8.8 Magnesium 2.1 Total Bilirubin 0.3 Direct Bilirubin 0.1 AST 19 ALT 11 Alkaline Phosphatase 93 B-Natriuretic Peptide 214 H Total Protein 6.7 Albumin 3.7 Influenza Type A (PCR) NEGATIVE Influenza Type B (PCR) NEGATIVE RSV RNA Qual (PCR) NEGATIVE SARS-CoV-2 RNA (RT-PCR) NEGATIVE Imaging Radiologist's Impressions: Impressions Knee X-Ray 06/27/25 11:45 IMPRESSION: 1. Marked osteopenia. No definite acute fracture. 2. Likely complete healing of the previously seen bilateral tibial plateau fractures and the fracture of the fibular neck. There is persistent depression of the lateral tibial plateau. 3. Patella marcos. 4. Small to moderate joint effusion. Electronically signed by: Venkatesh May MD 06/27/2025 12:15 PM EDT RP Hip/Pelvis X-Ray 06/27/25 12:42 IMPRESSION: No acute fracture or dislocation. Degenerative changes. Scoliosis. Electronically signed by: Jaron Khoury MD 06/27/2025 01:58 PM EDT RP Chest X-Ray 06/27/25 12:50 IMPRESSION: Chronic interstitial lung disease. Cardiomegaly. Atherosclerosis disease. Scoliosis and multilevel spondylosis. Electronically signed by: Jaron Khoury MD 06/27/2025 01:57 PM EDT RP Venous Duplex 06/27/25 15:35 IMPRESSION: No evidence of deep venous thrombosis involving the left lower extremity. Electronically signed by: Venkatesh May MD 06/27/2025 04:17 PM EDT RP Assessment and Plan (1) Asthma exacerbation: Status: Acute (2) Acute hypoxic respiratory failure: Status: Acute (3) Hypoxia: Status: Acute Plan Pt is an 84-year-old female with a PMH significant for cerebral palsy, complete heart block s/p pacemaker in place, moderate persistent asthma, rheumatoid arthritis, anemia, dysphagia, bipolar disorder, and displaced bicondylar fracture of left tibia?who presents to the ED for evaluation left leg and knee pain. Pt is admitted to the hospital for treatment and further evaluation of acute hypoxic respiratory failure in the setting of asthma exacerbation not sufficiently responsive to ED treatments. Acute hypoxic respiratory failure in the setting of asthma exacerbation Pt with wheezing, increased SOB and CHANG the past few days, desatting to 84% on RA Pt given bronchodilator therapy and IV steroids in the ED without sufficient relief CXR negative for underlying pneumonia Will treat with Solu-Medrol, DuoNebs, guaifenesin Titrate supplemental O2 >92%, wean as tolerated Monitor respiratory status Dysphagia Pt on ground diet with thin liquids Magic cup b.i.d. GERD Continue PPI Mood disorder Continue sertraline DNR/DNI, verified with pt and MOLST on file Attending:?Dr. Gibbons DVT Prophylaxis: Lovenox Pt will require a hospitalization of at least two nights for treatment of?acute hypoxic respiratory failure in the setting of asthma exacerbation not sufficiently alleviated by ED treatments. Pt will require hospital level care for administration of supplemental oxygen, IV steroids, bronchodilator nebulizers. Quality Stroke Does the patient have a stroke diagnosis?: No VTE Prior VTE?: No VTE Risk Level:: Medical - moderate - high VTE Device Contraindication: Treatment Not Indicated VTE Drug Contraindication: N/A - Med Ordered
--- NOTE | 2025-06-27 19:29 | PHA.MEDREC ---
Addendum entered by Prem Lanier [facility] 06/27/25 20:05: med rec reviewed Original Note: Pharmacy Consult ? Medication Reconciliation Pharmacy has completed the medication reconciliation. Utilized med list from the [facility].
--- NOTE | 2025-06-27 21:33 | PC.NURSE ---
call from [facility] requesting an update, [phone] spoke to Eleni.
[2025-06-28] VITALS (17 sets, daily range): BP systolic 127–156; BP diastolic 58–84; PULSE 77–97; RESP 13–22; TEMP 36.4–37.1; O2SAT 88–100; BMI 24.5
--- NOTE | 2025-06-28 06:11 | PC.NURSE ---
pt reports pain did not improve with tylenol. MD jackson made aware as no other PRNs available at this time. pt also tried having BM 2x without success, reports last BM 2 days ago, made aware. pt repositioned in bed requested only 1 pillow remain under legs. call florence within reach.
[2025-06-28 07:02] LABS: Hematocrit 25.6 % (37.0-47.0); Hemoglobin 7.6 g/dl (12.0-16.0); Mean Corpuscular HGB Conc 29.7 g/dl (31.0-35.0); Mean Corpuscular Hemoglobin 23.6 pg (27.0-33.0); Mean Corpuscular Volume 79.5 fL (80.0-98.0); NRBC Abs Auto 0.000 X10*3/uL (0.0-0.012); NRBC Pct Auto 0.0 /100WBC (0.0-0.2); Platelet Count 303 X10*3/uL (160-400); Red Blood Count 3.22 X10*6/uL (4.20-5.50); White Blood Count 8.9 X10*3/uL (4.8-10.8)
[2025-06-28 07:12] LABS: Anion Gap 12 (12-20); Blood Urea Nitrogen 11 mg/dL (9-16); Calcium 8.6 mg/dL (8.4-10.2); Carbon Dioxide 25 mmol/L (22-29); Chloride 108 mmol/L (96-108); Creatinine Clr Calc Pharmacy 50.1; Estimated Glomerular Filt Rate > 60; Potassium 4.1 mmol/L (3.3-5.1); Sodium 141 mmol/L (135-145)
[2025-06-28] MEDS: 0.9 % Sodium Chloride Flush 3 ML SYRINGE IVFLUSH ×3 (08:00→22:39)
[2025-06-28] MEDS: Albuterol/Iprat 2.5/0.5MG 3 ML AMPUL.NEB INHALE ×5 (08:36→23:31)
--- NOTE | 2025-06-28 08:59 | PC.NURSE ---
Pt A&O X4 VSS medicated for increased pain with some effect- pt also repositioned for comfort- Pericare done, Skin intact on buttox and sacrum. Pt more comfortable now. Aníbal PO well, voiding in purewick good amounts clr blake urine. RA trial in progress now.
--- NOTE | 2025-06-28 09:30 | MHC.CM.PN ---
IMM 06/28/25, Pt resides at [facility] in [place], PCP is: Breezy Carreno MD, HCP is on file and confirmed: Julienne. Pt. requires SN care, she uses a mechanical life to transfer. DCP is to return to [facility] via BLS. CM to follow for DC needs.
[2025-06-28] MEDS: Fluticasone/Vilanterol 100/25 BLST.W.DEV 1 PUFF INHALE (09:35)
[2025-06-28] MEDS: Sodium Chloride 5 % Ophth Sol 15 ML DRPBTL 1 DROP EYE-RIGHT ×3 (10:28→21:16)
--- NOTE | 2025-06-28 15:55 | MHC.CLN ---
NUTRITION PER PROVIDER NOTE, DIET=GROUND WITH THIN LIQUIDS, MAGIC CUP BID. SUPPLEMENT PROVIDES 580 KCALS, [address] TO MONITOR WEEKLY FOR PO INTAKE.
--- NOTE | 2025-06-28 17:58 | HO.SKINPHOTO ---
Location: Right Gross Patient arrived on admission with gauze on right gross, underneath appeared to be a skin tear with zeroform and steristrips. Old dressing removed, steri strips remain in place. Zeroform and non-adherent gauze and gauze wrap applied.
--- NOTE | 2025-06-28 18:41 | HO.PM.IMPN ---
Subjective Subjective Date of Service: 06/28/25 Interval History: Reports some improvement in breathing and SOB Still some cough Didn't sleep well last night Continued left hip and leg pain No fever or chills Denies CP/pressure or palipations Review of Systems Review of Systems: Yes all other systems are reviewed and are negative Physical Exam Exam: Exam: General: AOx3, no acute distress Resp: Diffuse wheezing bilaterally CVS: S1, S2, RRR GI: +BS, NT, no distention Skin: Warm, dry Neuro: Cranial nerves II-XII grossly intact bilaterally. Motor grossly intact bilaterally Extremities: No edema. Right upper extremities with evidence consistent with severe RA, hands and fingers contracted. Left lower extremity without active ROM secondary to pain. No obvious trauma or ecchymosis to left leg. Psych: Appropriate affect Vital Signs: Vital Signs: Last Vital Signs Temp 98.7 F 06/28/25 15:49 Pulse 91 06/28/25 16:34 Resp 18 06/28/25 16:34 BP 127/80 06/28/25 15:49 Pulse Ox 97 06/28/25 15:49 O2 Del Method Nasal Cannula 06/28/25 15:49 O2 Flow Rate 2 06/28/25 15:49 BMI result Body Mass Index 24.5 Objective Data Active Medications Acetaminophen (Acetaminophen 325 Mg Tablet) 650 mg PO Q6H PRN PRN Reason: Pain, Mild 1-3,fever,headache Last Admin: 06/28/25 16:05 Dose: 650 mg Documented By: CLAYTON Albuterol/Ipratropium (Albuterol/Iprat 2.5/0.5mg 3 Ml Ampul.Neb) 3 ml INHALE RQ4H WHILE AWAKE CLAUDINE Last Admin: 06/28/25 16:32 Dose: 3 ml Documented By: SINTIA Albuterol/Ipratropium (Albuterol/Iprat 2.5/0.5mg 3 Ml Ampul.Neb) 3 ml INHALE Q4H PRN PRN Reason: Shortness Of Breath Or Wheezing Bisacodyl (Bisacodyl 10 Mg Supp.Rect) 10 mg MI DAILY PRN PRN Reason: Constipation Calcium Carbonate (Calcium Carbonate 750 Mg Tab.Chew) 750 mg PO Q4H PRN PRN Reason: Heartburn Enoxaparin Sodium (Enoxaparin Sodium 40 Mg/0.4 Ml Syringe) 40 mg SUBCUT Q24H [facility] Last Admin: 06/27/25 18:57 Dose: 40 mg Documented By: WINTER Fluticasone/Vilanterol (Fluticasone/Vilanterol 100/25 Blst.W.Dev) 1 puff INHALE RDAILY [facility] Last Admin: 06/28/25 09:35 Dose: 1 puff Documented By: MALLORY Comments: given by resp Guaifenesin (Guaifenesin 200 Mg/10 Ml 10 Ml Liquid) 10 ml PO Q4H PRN PRN Reason: Cough Guaifenesin/Dextromethorphan (Guaifenesin Dm 200/20/10 Ml 10 Ml Syrup) 10 ml PO Q6H PRN PRN Reason: Cough Lactulose (Lactulose 20 Gm/30 Ml Solution) 20 gm PO Q72H PRN PRN Reason: No Bowel Movement Loratadine (Loratadine 10 Mg Tablet) 10 mg PO DAILY [facility] Last Admin: 06/28/25 08:31 Dose: 10 mg Documented By: MALLORY Magnesium Hydroxide (Milk Of Magnesia 30 Ml Oral.Susp) 30 ml PO DAILY PRN PRN Reason: Constipation Melatonin (Melatonin 3 Mg Tablet) 6 mg PO BEDTIME PRN PRN Reason: Insomnia Methylprednisolone Sodium Succinate (Methylprednisolone Sod Succ 40 Mg/Ml Vial) 40 mg IVPUSH Q12H [facility] Last Admin: 06/28/25 08:00 Dose: 40 mg Documented By: MALLORY Montelukast Sodium (Montelukast Sodium 10 Mg Tablet) 10 mg PO BEDTIME [facility] Omeprazole (Omeprazole 20 Mg Capsule.Dr) 20 mg PO DAILY@0630 [facility] Last Admin: 06/28/25 08:31 Dose: 20 mg Documented By: MALLORY Senna/Docusate Sodium (Sennosides/Docusate Sodium Tablet) 1 tab PO DAILY [facility] Last Admin: 06/28/25 08:31 Dose: 1 tab Documented By: MALLORY Senna/Docusate Sodium (Sennosides/Docusate Sodium Tablet) 2 tab PO BEDTIME [facility] Sertraline HCl (Sertraline Hcl 25 Mg Tablet) 25 mg PO DAILY [facility] Last Admin: 06/28/25 08:31 Dose: 25 mg Documented By: MALLORY Simethicone (Simethicone 80 Mg Tab.Chew) 80 mg PO BEDTIME PRN PRN Reason: Gas Pain Sodium Biphosphate/Sodium Phosphate (Sodium Phosphate,Webster-Dibasic 133 Ml Enema) 118 ml MI DAILY PRN PRN Reason: Constipation Sodium Chloride (0.9 % Sodium Chloride Flush 3 Ml Syringe) 3 ml IVFLUSH QSHIFT [facility] Last Admin: 06/28/25 16:14 Dose: 3 ml Documented By: CLAYTON Sodium Chloride (Sodium Chloride 5 % Ophth Polly 15 Ml Drpbtl) 1 drop EYE-RIGHT TID [facility] Last Admin: 06/28/25 16:06 Dose: 1 drop Documented By: CLAYTON Tamsulosin HCl (Tamsulosin Hcl 0.4 Mg Capsule) 0.4 mg PO DAILY [facility] Last Admin: 06/28/25 08:31 Dose: 0.4 mg Documented By: MALLORY Labs 06/28/25 06:40 06/28/25 06:40 Labs: Laboratory Results - last 24 hr 06/28/25 06:40 MCV 79.5 L MCH 23.6 L MCHC 29.7 L RDW 17.3 H Plt Count 303 MPV 8.7 L Absolute Nucleated RBC 0.000 Nucleated RBC % (auto) 0.0 Anion Gap 12 Estim Creat Clear Calc 50.1 Estimated GFR > 60 Random Glucose 124 H Calcium 8.6 Assessment and Plan (1) Asthma exacerbation: Status: Acute Assessment and Plan: Pt is an 84-year-old female with a PMH significant for cerebral palsy, complete heart block s/p pacemaker in place, moderate persistent asthma, rheumatoid arthritis, anemia, dysphagia, bipolar disorder, and displaced bicondylar fracture of left tibia?who presents to the ED for evaluation left leg and knee pain. Pt is admitted to the hospital for treatment and further evaluation of acute hypoxic respiratory failure in the setting of asthma exacerbation not sufficiently responsive to ED treatments. Acute hypoxic respiratory failure in the setting of asthma exacerbation Pt with wheezing, increased SOB and CHANG the past few days, desatting to 84% on RA at time of presentation Wheezing and SOB better today, though continue to persist CXR negative for underlying pneumonia Continue Solu-Medrol, DuoNebs, guaifenesin Titrate supplemental O2 >92%, wean as tolerated Monitor respiratory status Left hip and leg pain Secondary to chronic leg fracture in 02/2024 with resultant contracture Pt treated non-operatively; now wheelchair and bed-bound Analgesics for pain management Chronic anemia H&H 7.6/25.6, in line with previous Follow CBC Dysphagia Pt on ground diet with thin liquids Magic cup b.i.d. GERD Continue PPI Mood disorder Continue sertraline DNR/DNI, verified with pt and MOLST on file Attending:?Dr. Gibbons DVT Prophylaxis: Pneumatic compression due to anemia Pt requires continued hospitalization due to persistent wheezing and need for supplemental oxygen, IV steroids, and bronchodilator nebulizers. (2) Acute hypoxic respiratory failure: Status: Acute Quality Stroke Does the patient have a stroke diagnosis?: No VTE Prior VTE?: No VTE Risk Level:: Medical - moderate - high VTE Device Contraindication: Treatment Not Indicated VTE Drug Contraindication: N/A - Med Ordered
--- NOTE | 2025-06-28 22:22 | PC.NURSE ---
Assumed care of patient at 1915. A&Ox4. VSS. No signs or symptoms of distress. Patient resting comfortably in bed. Offered no complaints. No wheezing present. Head of bed in semi-cole's position. Bed in low position with alarm on. Call florence within reach. Care transferred to oncoming BILL Gastelum.- see safe start shift assessment for details.
[2025-06-28] MEDS: oxyCODONE HCl Immed Release 5 MG TABLET PO (22:44)
[2025-06-29] VITALS (8 sets, daily range): BP systolic 127–152; BP diastolic 63–86; PULSE 81–97; RESP 18–24; TEMP 36.2–37.1; O2SAT 94–98
[2025-06-29 06:19] LABS: Hematocrit 24.2 % (37.0-47.0); Hemoglobin 7.2 g/dl (12.0-16.0); Mean Corpuscular HGB Conc 29.8 g/dl (31.0-35.0); Mean Corpuscular Hemoglobin 23.4 pg (27.0-33.0); Mean Corpuscular Volume 78.6 fL (80.0-98.0); NRBC Abs Auto 0.000 X10*3/uL (0.0-0.012); NRBC Pct Auto 0.0 /100WBC (0.0-0.2); Platelet Count 301 X10*3/uL (160-400); Red Blood Count 3.08 X10*6/uL (4.20-5.50); White Blood Count 11.7 X10*3/uL (4.8-10.8)
[2025-06-29] MEDS: 0.9 % Sodium Chloride Flush 3 ML SYRINGE IVFLUSH ×3 (08:28→19:52)
[2025-06-29] MEDS: Sodium Chloride 5 % Ophth Sol 15 ML DRPBTL 1 DROP EYE-RIGHT ×2 (08:30→15:25)
[2025-06-29] MEDS: Albuterol/Iprat 2.5/0.5MG 3 ML AMPUL.NEB INHALE ×4 (08:32→20:23)
[2025-06-29] MEDS: Fluticasone/Vilanterol 100/25 BLST.W.DEV 1 PUFF INHALE (08:32)
[2025-06-29 09:10] LABS: Iron 14 mcg/dL (30-160); Percent Iron Saturation 4 % (15-50); Total Iron Binding Capacity 334 mcg/dL (228-428); Unsaturated Iron Binding 320 ug/dL
[2025-06-29] MEDS: oxyCODONE HCl Immed Release 5 MG TABLET PO ×2 (12:15→17:37)
[2025-06-29] MEDS: guaiFENesin DM 200/20/10 ML 10 ML SYRUP PO ×2 (12:15→19:51)
--- NOTE | 2025-06-29 17:32 | HO.PM.IMPN ---
Subjective Subjective Date of Service: 06/29/25 Interval History: Worsening SOB and difficulty breathing from morning to afternoon No cough last night, but cough returned in the morning and afternoon Continued left leg pain and stiffness Review of Systems Review of Systems: Yes all other systems are reviewed and are negative Physical Exam Exam: Exam: General: AOx3, no acute distress. Elderly, frail Resp: Diffuse wheezing bilaterally; pt with persistent nonproductive cough CVS: S1, S2, RRR GI: +BS, NT, no distention Skin: Warm, dry Neuro: Cranial nerves II-XII grossly intact bilaterally. Motor grossly intact bilaterally Extremities: No edema. Right hands with evidence consistent with severe RA, hands and fingers contracted. Left lower extremity with minimal active ROM secondary to pain. No obvious trauma or ecchymosis to left leg. Psych: Appropriate affect Vital Signs: Vital Signs: Last Vital Signs Temp 97.5 F 06/29/25 15:49 Pulse 89 06/29/25 15:49 Resp 18 06/29/25 15:49 BP 127/64 06/29/25 15:49 Pulse Ox 94 06/29/25 15:49 O2 Del Method Nasal Cannula 06/29/25 15:49 O2 Flow Rate 1 06/29/25 15:49 BMI result Body Mass Index 24.5 Objective Data Active Medications Acetaminophen (Acetaminophen 325 Mg Tablet) 650 mg PO Q6H PRN PRN Reason: Pain, Mild 1-3,fever,headache Last Admin: 06/28/25 16:05 Dose: 650 mg Documented By: CLAYTON Albuterol/Ipratropium (Albuterol/Iprat 2.5/0.5mg 3 Ml Ampul.Neb) 3 ml INHALE RQ4H WHILE AWAKE CLAUDINE Last Admin: 06/29/25 15:15 Dose: 3 ml Documented By: SINTIA Albuterol/Ipratropium (Albuterol/Iprat 2.5/0.5mg 3 Ml Ampul.Neb) 3 ml INHALE Q4H PRN PRN Reason: Shortness Of Breath Or Wheezing Last Admin: 06/28/25 23:31 Dose: 3 ml Documented By: KEYSHA Baclofen (Baclofen 10 Mg Tablet) 10 mg PO BID PRN PRN Reason: Muscle stiffness/leg pain Bisacodyl (Bisacodyl 10 Mg Supp.Rect) 10 mg [place] DAILY PRN PRN Reason: Constipation Calcium Carbonate (Calcium Carbonate 750 Mg Tab.Chew) 750 mg PO Q4H PRN PRN Reason: Heartburn Fluticasone/Vilanterol (Fluticasone/Vilanterol 100/25 Blst.W.Dev) 1 puff INHALE RDAILY [facility] Last Admin: 06/29/25 08:32 Dose: 1 puff Documented By: SINTIA Guaifenesin (Guaifenesin 200 Mg/10 Ml 10 Ml Liquid) 10 ml PO Q4H PRN PRN Reason: Cough Guaifenesin/Dextromethorphan (Guaifenesin Dm 200/20/10 Ml 10 Ml Syrup) 10 ml PO Q6H PRN PRN Reason: Cough Last Admin: 06/29/25 12:15 Dose: 10 ml Documented By: ELAINE Lactulose (Lactulose 20 Gm/30 Ml Solution) 20 gm PO Q72H PRN PRN Reason: No Bowel Movement Loratadine (Loratadine 10 Mg Tablet) 10 mg PO DAILY [facility] Last Admin: 06/29/25 08:28 Dose: 10 mg Documented By: ELAINE Magnesium Hydroxide (Milk Of Magnesia 30 Ml Oral.Susp) 30 ml PO DAILY PRN PRN Reason: Constipation Melatonin (Melatonin 3 Mg Tablet) 6 mg PO BEDTIME PRN PRN Reason: Insomnia Methylprednisolone Sodium Succinate (Methylprednisolone Sod Succ 40 Mg/Ml Vial) 40 mg IVPUSH Q12H [facility] Last Admin: 06/29/25 08:28 Dose: 40 mg Documented By: ELAINE Montelukast Sodium (Montelukast Sodium 10 Mg Tablet) 10 mg PO BEDTIME [facility] Last Admin: 06/28/25 22:39 Dose: 10 mg Documented By: TRINA Omeprazole (Omeprazole 20 Mg Capsule.Dr) 20 mg PO DAILY@0630 [facility] Last Admin: 06/29/25 05:47 Dose: 20 mg Documented By: TRINA Oxycodone HCl (Oxycodone Hcl Immed Release 5 Mg Tablet) 5 mg PO Q4H PRN PRN Reason: Pain, Severe (Pain Scale 7-10) Last Admin: 06/29/25 12:15 Dose: 5 mg Documented By: ELAINE Senna/Docusate Sodium (Sennosides/Docusate Sodium Tablet) 1 tab PO DAILY [facility] Last Admin: 06/29/25 08:28 Dose: 1 tab Documented By: ELAINE Senna/Docusate Sodium (Sennosides/Docusate Sodium Tablet) 2 tab PO BEDTIME [facility] Last Admin: 06/28/25 22:38 Dose: 2 tab Documented By: TRINA Sertraline HCl (Sertraline Hcl 25 Mg Tablet) 25 mg PO DAILY [facility] Last Admin: 06/29/25 08:28 Dose: 25 mg Documented By: ELAINE Simethicone (Simethicone 80 Mg Tab.Chew) 80 mg PO BEDTIME PRN PRN Reason: Gas Pain Sodium Biphosphate/Sodium Phosphate (Sodium Phosphate,[place]-Dibasic 133 Ml Enema) 118 ml [place] DAILY PRN PRN Reason: Constipation Sodium Chloride (0.9 % Sodium Chloride Flush 3 Ml Syringe) 3 ml IVFLUSH QSHIFT [facility] Last Admin: 06/29/25 15:25 Dose: 3 ml Documented By: ELAINE Sodium Chloride (Sodium Chloride 5 % Ophth Polly 15 Ml Drpbtl) 1 drop EYE-RIGHT TID [facility] Last Admin: 06/29/25 15:25 Dose: 1 drop Documented By: ELAINE Tamsulosin HCl (Tamsulosin Hcl 0.4 Mg Capsule) 0.4 mg PO DAILY [facility] Last Admin: 06/29/25 08:28 Dose: 0.4 mg Documented By: ELAINE Labs 06/29/25 05:46 06/28/25 06:40 Labs: Laboratory Results - last 24 hr 06/29/25 05:46 MCV 78.6 L MCH 23.4 L MCHC 29.8 L RDW 17.5 H Plt Count 301 MPV 8.8 L Absolute Nucleated RBC 0.000 Nucleated RBC % (auto) 0.0 Iron 14 L TIBC 334 % Saturation 4 L Unsat Iron Binding 320 Assessment and Plan (1) Asthma exacerbation: Status: Acute Assessment and Plan: Pt is an 84-year-old female with a PMH significant for cerebral palsy, complete heart block s/p pacemaker in place, moderate persistent asthma, rheumatoid arthritis, anemia, dysphagia, bipolar disorder, and displaced bicondylar fracture of left tibia?who presents to the ED for evaluation left leg and knee pain. Pt is admitted to the hospital for treatment and further evaluation of acute hypoxic respiratory failure in the setting of asthma exacerbation not sufficiently responsive to ED treatments. Acute hypoxic respiratory failure in the setting of asthma exacerbation Pt with wheezing, increased SOB and CHANG the past few days, desatting to 84% on RA at time of presentation Wheezing and SOB and cough initially better last night, worse in the morning and afternoon CXR negative for underlying pneumonia Continue Solu-Medrol, DuoNebs, guaifenesin Titrate supplemental O2 >92%, wean as tolerated Monitor respiratory status Left hip and leg pain Secondary to chronic leg fracture in 02/2024 with resultant contracture Pt treated non-operatively; now wheelchair and bed-bound Analgesics for pain management; Baclofen prn Chronic microcytic anemia Hct in line with previous Iron stuides concerning for iron deficiency Start ferrous sulfate supplementation Dysphagia Pt on ground diet with thin liquids Magic cup b.i.d. GERD Continue PPI Mood disorder Continue sertraline DNR/DNI, verified with pt and [facility]OLST on file Attending:?Dr. Gibbons DVT Prophylaxis: Pneumatic compression due to anemia Pt requires continued hospitalization due to persistent wheezing and need for supplemental oxygen, IV steroids, and bronchodilator nebulizers. Quality Stroke Does the patient have a stroke diagnosis?: No VTE Prior VTE?: No VTE Risk Level:: Medical - moderate - high VTE Device Contraindication: Treatment Not Indicated VTE Drug Contraindication: N/A - Med Ordered
[2025-06-29] MEDS: Ferrous Sulfate 300 MG/5 ML LIQUID PO (17:38)
[2025-06-30 04:00] VITALS: BP 165/82; PULSE 87; RESP 18; TEMP 36.4; O2SAT 95
[2025-06-30] MEDS: oxyCODONE HCl Immed Release 5 MG TABLET PO ×2 (05:08→12:02)
--- NOTE | 2025-06-30 07:33 | P.DS_ITS ---
DS: Providers Provider Date of Service: 06/30/25 Date of admission: 06/27/25 17:05 Date of discharge: 06/30/25 Primary care physician: Breezy Carreno MD Consults: 06/30/25 02:57 Consult to Wound Care Routine Reason for consultation: skin tear rt gross DS: Diagnosis Discharge Diagnosis (1) Asthma exacerbation: Status: Acute (2) Acute hypoxic respiratory failure: Status: Acute (3) Hypoxia: Status: Acute DS: Summary Hospital Course Hospital Course: From admission HPI: Chief Complaint: Left knee pain Pt is an 84-year-old female with a PMH significant for cerebral palsy, complete heart block s/p pacemaker in place, moderate persistent asthma, rheumatoid arthritis, anemia, dysphagia, bipolar disorder, and displaced bicondylar fracture of left tibia?who presents to the ED for evaluation left leg and knee pain. Pt initially was found to have multiple left leg fractures of tibia and fibula on on 02/2024 that was treated nonsurgically as pt was a risk for periprosthetic fracture and poor healing. Since that time pt has been a resident at a SNF and unable to ambulate at baseline. Last night pt reports she twisted her left leg when transferring from wheelchair to bed, though pt vague as to how this happened. Apparently uses a Wesley lift for transfer. Denies fall. In triage pt was noted to be hypoxic in the mid 80s on RA. Pt not on home O2. States he has had an increased cough occasionally productive with the past few weeks. Has had increased SOB and difficulty breathing in the past few days. Denies chest pain/pressure, palpitations. No fever or chills. In the ED pt was tachycardic up to 97 and hypoxic as low as 84% on RA. Labs were significant for microcytic anemia of 8.0/26.2 and BNP 214. No significant leukocytosis or electrolyte abnormalities. Renal and hepatic function around baseline. Tested negative for flu, COVID, RSV. CXR showed chronic interstitial lung disease and cardiomegaly, but no consolidation. Left knee x-ray negative for acute fracture. Hip and pelvis x-ray negative for acute fracture or dislocation. Venous duplex ultrasound of left lower extremity negative for DVT. EKG demonstrated a regular paced rhythm with prolonged AV conduction, similar to prior EKGs. Pt was treated in the ED with DuoNebs and Solu-Medrol. Pt is admi tted to the hospital for treatment and further evaluation of acute hypoxic respiratory failure in the setting of asthma exacerbation not sufficiently responsive to ED treatments. Hospital course: The pt was initially presented to the hospital with left leg and knee pain imaging including x-rays of left knee, hip, and pelvis negative for acute fracture. Physical exam negative for ecchymosis, lacerations, or sign of trauma. While in the ED pt was noted to be hypoxic into the 80s and have cough and wheezing upon auscultation. CXR negative for underlying pneumonia. Tested negative for flu, COVID, RSV. Was admitted to the hospital for acute hypoxic respiratory failure in the setting of asthma exacerbation not sufficiently alleviated by ED treatments. Pt was treated in the hospital with supplemental oxygen, steroids, bronchodilator therapy, and guaifenesin. Reports he has had a chronic cough for the past 1-2 months, and experienced occasional bouts of coughing episodes while in the hospital, though overall cough appeared better than previous. Pt eventually weaned from supplemental oxygen and satting in the 90s on RA. Currently appears back to baseline with breathing and SOB, and will be discharged back to facility on a 5 day course of oral prednisone. Reports supplemental oxygen at facility p.r.n.. Continue all home inhalers and montelukast. For left lower extremity pain, pt will be prescribed a short course of oxycodone 5 mg q6h p.r.n. for severe pain. All imaging negative for acute fracture or subluxation. Has chronic left lower extremity pain secondary to leg fracture in 02/2024 that was treated non-operatively; pain currently above baseline and likely exacerbated by mild soft tissue injury she believes occurred when she got into bed. Pt was also noted to have microcytic anemia and low iron stores and saturation. Will be prescribed ferrous sulfate 325 mg p.o. b.i.d. with meals. Pt should have repeat labs drawn 1-2 weeks to monitor H&H. Pt should otherwise continue all other home medications. Time Attestation Discharge Coordination Time (in mins): 35 Quality: Safe Use of Opioids Does Pt have an Active Cancer Diagnosis on the Problem List?: No Quality: Stroke Does the patient have a stroke diagnosis?: No Physical Exam Vital Signs: Vital Signs: Last Vital Signs Temp 97.6 F 06/30/25 04:00 Pulse 87 06/30/25 04:00 Resp 18 06/30/25 04:00 BP 165/82 H 06/30/25 04:00 Pulse Ox 95 06/30/25 04:00 O2 Del Method Nasal Cannula 06/30/25 04:00 O2 Flow Rate 2 06/30/25 04:00 BMI result Body Mass Index 24.5 DS: Data Data Completed and Pending Labs on day of discharge: Laboratory Results - last 24 hr 06/29/25 05:46 Iron 14 L TIBC 334 % Saturation 4 L Unsat Iron Binding 320 Discharge Plan Discharge Anticipated Discharge Date/Time: 06/30/25 14:00 Patient Disposition: Xfer SNF Discharge Diagnosis: Acute hypoxic respiratory failure in the setting of asthma exacerbation Referrals: [facility] [Outside] - 1 Week Breezy Carreno MD [Primary Care Provider, Medical] - 1 Week Discharge Medications: New prednisone 20 mg tablet 40 mg PO DAILY Qty: 8 0RF Rx Instructions: Take two tablets daily for the next 3 days and then one tablet daily for the next two days oxycodone 5 mg capsule 5 mg PO Q6H PRN (Reason: pain, severe) Qty: 15 0RF Rx Instructions: Partial Fill upon patient request. Take one tablet every 6 hours as needed for severe pain ferrous sulfate 325 mg (65 mg iron) tablet 325 mg PO BID Qty: 180 0RF Rx Instructions: Take one tablet twice a day with meals for iron deficiency anemia. Continued montelukast 10 mg tablet 10 mg PO BEDTIME Qty: 90 3RF acetaminophen 325 mg Tablet 650 mg PO Q6H PRN (Reason: Pain, Mild (Pain Scale 1-3)) Qty: 0 0RF ipratropium-albuterol 0.5 mg-3 mg(2.5 mg base)/3 mL solution for nebulization 3 ml INHALATION Q4H PRN (Reason: Shortness Of Breath Or Wheezing) sodium chloride [Da 128] 5 % Drops 1 drp ophthalmic-Right TID sennosides-docusate sodium [Senna Plus] 8.6-50 mg Tablet 1 tab-cap PO DAILY sennosides-docusate sodium [Senna Plus] 8.6-50 mg Tablet 2 tab-cap PO BEDTIME melatonin 3 mg Tablet 3 mg PO BEDTIME acetaminophen 500 mg Tablet 1,000 mg PO BID guaifenesin [Radha-Tussin] 100 mg/5 mL Liquid 200 mg PO Q4H PRN (Reason: Cough) bisacodyl 10 mg Suppository 10 mg AL DAILY PRN (Reason: Constipation) Fleet Enema 19-7 gram/118 mL Enema 118 ml AL DAILY PRN (Reason: Constipation) calcium carbonate 500 mg calcium (1,250 mg) Tablet,Chewable 500 mg PO Q4H PRN (Reason: Indigestion) simethicone 80 mg Tablet,Chewable 80 mg PO BEDTIME PRN (Reason: Gas Pain) aspirin 325 mg Tablet 325 mg PO DAILY ipratropium-albuterol 0.5 mg-3 mg(2.5 mg base)/3 mL Solution For Nebulization 3 ml INHALATION BID cetirizine [Zyrtec] 10 mg Tablet 10 mg PO DAILY fluticasone furoate-vilanterol [Breo Ellipta] 100-25 mcg/dose blister with device 1 ea inhalation DAILY tamsulosin 0.4 mg capsule 0.4 mg PO DAILY sertraline 25 mg tablet 25 mg PO DAILY pantoprazole 40 mg tablet,delayed release (DR/EC) 40 mg PO DAILY@0630 lactulose 10 gram/15 mL solution 30 ml PO Q72H PRN (Reason: No Bowel Movement) Discharge Orders: Discharge Order (Routine); Ordered 06/30/25 Ordered By: Beryl House Diet: Advance to usual diet Activity on Discharge: As tolerated Stand Alone Forms: Patient Portal Discharge page Print Language: Mongolian Care Plan Goals: recovery from asthma exacerbatin Health Concerns: [facility] exacerbation Plan of Treatment: You were admitted to the hospital for acute hypoxic respiratory failure in the setting of asthma exacerbation that did not sufficiently respond to treatments in the ED. Imaging was negative for underlying pneumonia. You were prescribed a short course of prednisone which he will take for the next 5 days: 40 mg daily x3 days and 20mg daily x2 days. Continue home inhalers and montelukast. You were also noted to have iron deficiency anemia and has been prescribed iron supplementation: Ferrous sulfate 325 mg to be taken twice a day with meals. You should follow up with outpatient labs in 1-2 weeks to monitor blood levels. For left leg pain, x-rays of hip/pelvis and knee negative for acute fracture, and physical exam reveals no obvious injury or trauma to the area. You likely have a soft tissue injury. You will be prescribed a short course of oxycodone to take as needed for severe pain. Assessment: take prednisone and inhlers as directed Patient Instructions: Prednisone (By mouth), Oxycodone, Rapid Release (By mouth) (ETH-Oxydose, Oxy IR,..., Ascorbic Acid/Cyanocobalamin/Ferrous Fumarate (By mouth), Pain Management (GEN) Discharge Date/Time: 06/30/25 15:04
[2025-06-30 07:46] VITALS: BP 160/81; PULSE 83; RESP 18; TEMP 36.1; O2SAT 95
[2025-06-30 08:32] VITALS: PULSE 75; RESP 18; O2SAT 99
[2025-06-30] MEDS: Fluticasone/Vilanterol 100/25 BLST.W.DEV 1 PUFF INHALE (08:32)
[2025-06-30] MEDS: Albuterol/Iprat 2.5/0.5MG 3 ML AMPUL.NEB INHALE ×2 (08:32→12:05)
[2025-06-30] MEDS: Sodium Chloride 5 % Ophth Sol 15 ML DRPBTL 1 DROP EYE-RIGHT (09:07)
[2025-06-30] MEDS: 0.9 % Sodium Chloride Flush 3 ML SYRINGE IVFLUSH (09:09)
[2025-06-30 10:12] VITALS: O2SAT 91
[2025-06-30] MEDS: Ferrous Sulfate 300 MG/5 ML LIQUID PO (10:12)
--- NOTE | 2025-06-30 10:42 | MHC.CM.PN ---
Addendum entered by Rafaela Love 06/30/25 14:14: Patient tolerated her lunch well. She is discharged today to [facility] via BLS corn picker 2:30pm -3:00pm with [facility]. Addendum entered by Rafaela Love 06/30/25 11:11: Transport time changed 2:30pm-3pm corn picker. Original Note: IMM 06/30/25 Patient is discharged today. She will return to LTC @ [facility]. The SNF has been notified of dc today. Julienne/KENDALL/deborah herrmann has been notified of the discharge today, to return to LTC. [place] [facility] [place] [facility] [place]
--- NOTE | 2025-06-30 11:07 | P.DS_ITS ---
DS: Providers Provider Date of Service: 06/30/25 Date of admission: 06/27/25 17:05 Date of discharge: 06/30/25 Primary care physician: Breezy Carreno MD Consults: 06/30/25 02:57 Consult to Wound Care Routine Reason for consultation: skin tear rt gross DS: Diagnosis Discharge Diagnosis (1) Asthma exacerbation: Status: Acute (2) Acute hypoxic respiratory failure: Status: Acute (3) Hypoxia: Status: Acute DS: Summary Hospital Course Hospital Course: From admission HPI: Chief Complaint: Left knee pain Pt is an 84-year-old female with a PMH significant for cerebral palsy, complete heart block s/p pacemaker in place, moderate persistent asthma, rheumatoid arthritis, anemia, dysphagia, bipolar disorder, and displaced bicondylar fracture of left tibia?who presents to the ED for evaluation left leg and knee pain. Pt initially was found to have multiple left leg fractures of tibia and fibula on on 02/2024 that was treated nonsurgically as pt was a risk for periprosthetic fracture and poor healing. Since that time pt has been a resident at a SNF and unable to ambulate at baseline. Last night pt reports she twisted her left leg when transferring from wheelchair to bed, though pt vague as to how this happened. Apparently uses a Wesley lift for transfer. Denies fall. In triage pt was noted to be hypoxic in the mid 80s on RA. Pt not on home O2. States he has had an increased cough occasionally productive with the past few weeks. Has had increased SOB and difficulty breathing in the past few days. Denies chest pain/pressure, palpitations. No fever or chills. In the ED pt was tachycardic up to 97 and hypoxic as low as 84% on RA. Labs were significant for microcytic anemia of 8.0/26.2 and BNP 214. No significant leukocytosis or electrolyte abnormalities. Renal and hepatic function around baseline. Tested negative for flu, COVID, RSV. CXR showed chronic interstitial lung disease and cardiomegaly, but no consolidation. Left knee x-ray negative for acute fracture. Hip and pelvis x-ray negative for acute fracture or dislocation. Venous duplex ultrasound of left lower extremity negative for DVT. EKG demonstrated a regular paced rhythm with prolonged AV conduction, similar to prior EKGs. Pt was treated in the ED with DuoNebs and Solu-Medrol. Pt is admi tted to the hospital for treatment and further evaluation of acute hypoxic respiratory failure in the setting of asthma exacerbation not sufficiently responsive to ED treatments. Hospital course: The pt was initially presented to the hospital with left leg and knee pain imaging including x-rays of left knee, hip, and pelvis negative for acute fracture. Physical exam negative for ecchymosis, lacerations, or sign of trauma. While in the ED pt was noted to be hypoxic into the 80s and have cough and wheezing upon auscultation. CXR negative for underlying pneumonia. Tested negative for flu, COVID, RSV. Was admitted to the hospital for acute hypoxic respiratory failure in the setting of asthma exacerbation not sufficiently alleviated by ED treatments. Pt was treated in the hospital with supplemental oxygen, steroids, bronchodilator therapy, and guaifenesin. Reports he has had a chronic cough for the past 1-2 months, and experienced occasional bouts of coughing episodes while in the hospital, though overall cough appeared better than previous. Pt eventually weaned from supplemental oxygen and satting in the 90s on RA. Currently appears back to baseline with breathing and SOB, and will be discharged back to facility on a 5 day course of oral prednisone. Reports supplemental oxygen at facility p.r.n.. Continue all home inhalers and montelukast. For left lower extremity pain, pt will be prescribed a short course of oxycodone 5 mg q6h p.r.n. for severe pain. All imaging negative for acute fracture or subluxation. Has chronic left lower extremity pain secondary to leg fracture in 02/2024 that was treated non-operatively; pain currently above baseline and likely exacerbated by mild soft tissue injury she believes occurred when she got into bed. Pt was also noted to have microcytic anemia and low iron stores and saturation. Will be prescribed ferrous sulfate 325 mg p.o. b.i.d. with meals. Pt should have repeat labs drawn 1-2 weeks to monitor H&H. Pt should otherwise continue all other home medications. Time Attestation Discharge Coordination Time (in mins): 35 Quality: Safe Use of Opioids Does Pt have an Active Cancer Diagnosis on the Problem List?: No Quality: Stroke Does the patient have a stroke diagnosis?: No Physical Exam Exam: Exam: General: AOx3, no acute distress. Elderly, frail Resp: Coarse breath sounds bilaterally; no cough while talking CVS: S1, S2, RRR GI: +BS, NT, no distention Skin: Warm, dry Neuro: Cranial nerves II-XII grossly intact bilaterally. Motor grossly intact bilaterally Extremities: No edema. Right hands with evidence consistent with severe RA, hands and fingers contracted. Left lower extremity with minimal active ROM secondary to pain. No obvious trauma or ecchymosis to left leg. Psych: Appropriate affect Vital Signs: Vital Signs: Last Vital Signs Temp 96.9 F 06/30/25 07:46 Pulse 75 06/30/25 08:32 Resp 18 06/30/25 08:32 BP 160/81 H 06/30/25 07:46 Pulse Ox 91 L 06/30/25 10:12 O2 Del Method Room Air 06/30/25 10:12 O2 Flow Rate 2 06/30/25 07:46 BMI result Body Mass Index 24.5 Discharge Plan Discharge Anticipated Discharge Date/Time: 06/30/25 14:00 Patient Disposition: Xfer SNF Discharge Diagnosis: Acute hypoxic respiratory failure in the setting of asthma exacerbation Referrals: [facility] [Outside] - 1 Week Breezy Carreno MD [Primary Care Provider, Medical] - 1 Week Discharge Medications: New prednisone 20 mg tablet 40 mg PO DAILY Qty: 8 0RF Rx Instructions: Take two tablets daily for the next 3 days and then one tablet daily for the next two days oxycodone 5 mg capsule 5 mg PO Q6H PRN (Reason: pain, severe) Qty: 15 0RF Rx Instructions: Partial Fill upon patient request. Take one tablet every 6 hours as needed for severe pain ferrous sulfate 325 mg (65 mg iron) tablet 325 mg PO BID Qty: 180 0RF Rx Instructions: Take one tablet twice a day with meals for iron deficiency anemia. Continued montelukast 10 mg tablet 10 mg PO BEDTIME Qty: 90 3RF acetaminophen 325 mg Tablet 650 mg PO Q6H PRN (Reason: Pain, Mild (Pain Scale 1-3)) Qty: 0 0RF ipratropium-albuterol 0.5 mg-3 mg(2.5 mg base)/3 mL solution for nebulization 3 ml INHALATION Q4H PRN (Reason: Shortness Of Breath Or Wheezing) sodium chloride [Da 128] 5 % Drops 1 drp ophthalmic-Right TID sennosides-docusate sodium [Senna Plus] 8.6-50 mg Tablet 1 tab-cap PO DAILY sennosides-docusate sodium [Senna Plus] 8.6-50 mg Tablet 2 tab-cap PO BEDTIME melatonin 3 mg Tablet 3 mg PO BEDTIME acetaminophen 500 mg Tablet 1,000 mg PO BID guaifenesin [Radha-Tussin] 100 mg/5 mL Liquid 200 mg PO Q4H PRN (Reason: Cough) bisacodyl 10 mg Suppository 10 mg DE DAILY PRN (Reason: Constipation) Fleet Enema 19-7 gram/118 mL Enema 118 ml DE DAILY PRN (Reason: Constipation) calcium carbonate 500 mg calcium (1,250 mg) Tablet,Chewable 500 mg PO Q4H PRN (Reason: Indigestion) simethicone 80 mg Tablet,Chewable 80 mg PO BEDTIME PRN (Reason: Gas Pain) aspirin 325 mg Tablet 325 mg PO DAILY ipratropium-albuterol 0.5 mg-3 mg(2.5 mg base)/3 mL Solution For Nebulization 3 ml INHALATION BID cetirizine [Zyrtec] 10 mg Tablet 10 mg PO DAILY fluticasone furoate-vilanterol [Breo Ellipta] 100-25 mcg/dose blister with device 1 ea inhalation DAILY tamsulosin 0.4 mg capsule 0.4 mg PO DAILY sertraline 25 mg tablet 25 mg PO DAILY pantoprazole 40 mg tablet,delayed release (DR/EC) 40 mg PO DAILY@0630 lactulose 10 gram/15 mL solution 30 ml PO Q72H PRN (Reason: No Bowel Movement) Discharge Orders: Discharge Order (Routine); Ordered 06/30/25 Ordered By: Beryl House Diet: Advance to usual diet Activity on Discharge: As tolerated Stand Alone Forms: Patient Portal Discharge page Print Language: Burkinan Care Plan Goals: recovery from asthma exacerbatin Health Concerns: [facility] exacerbation Plan of Treatment: You were admitted to the hospital for acute hypoxic respiratory failure in the setting of asthma exacerbation that did not sufficiently respond to treatments in the ED. Imaging was negative for underlying pneumonia. You were prescribed a short course of prednisone which he will take for the next 5 days: 40 mg daily x3 days and 20mg daily x2 days. Continue home inhalers and montelukast. You were also noted to have iron deficiency anemia and has been prescribed iron supplementation: Ferrous sulfate 325 mg to be taken twice a day with meals. You should follow up with outpatient labs in 1-2 weeks to monitor blood levels. For left leg pain, x-rays of hip/pelvis and knee negative for acute fracture, and physical exam reveals no obvious injury or trauma to the area. You likely have a soft tissue injury. You will be prescribed a short course of oxycodone to take as needed for severe pain. Assessment: take prednisone and inhlers as directed Patient Instructions: Prednisone (By mouth), Oxycodone, Rapid Release (By mouth) (ETH-Oxydose, Oxy IR,..., Ascorbic Acid/Cyanocobalamin/Ferrous Fumarate (By mouth), Pain Management (GEN) Discharge Date/Time: 06/30/25 15:04
[2025-06-30 12:05] VITALS: PULSE 86; RESP 18; O2SAT 90
--- NOTE | 2025-06-30 14:18 | PC.NURSE ---
Patient preparing for discharge, spoke to staff member at via telephone and gave nurse to nurse report with no discharge questions at this time.
[2025-06-30 14:19] VITALS: BP 131/64; PULSE 85; RESP 17; TEMP 36.5; O2SAT 92
== END 2025-06-30 15:04 | disposition skilled nursing facility (03) | DRG 202 ==
LOC: HO.ED 16:56 → HO.EDOVER 18:45 → HO.S3 06-28 10:51
PROVIDERS: Admitting Provider Student in an Organized Health Care Education/Training Program; Emergency Provider Emergency Medicine; PCP Internal Medicine Geriatric Medicine; Visit Provider Internal Medicine
DX: J45.41 Moderate persistent asthma with (acute) exacerbation (principal); J96.01 Acute respiratory failure with hypoxia; I44.2 Atrioventricular block, complete; G80.9 Cerebral palsy, unspecified; Z66 Do not resuscitate; F39 Unspecified mood [affective] disorder; M06.9 Rheumatoid arthritis, unspecified; G89.21 Chronic pain due to trauma; D50.9 Iron deficiency anemia, unspecified; M25.552 Pain in left hip; M79.662 Pain in left lower leg; Z99.3 Dependence on wheelchair; R13.10 Dysphagia, unspecified; K21.9 Gastro-esophageal reflux disease without esophagitis; Z20.822 Contact with and (suspected) exposure to COVID-19; Z95.0 Presence of cardiac pacemaker; Z79.82 Long term (current) use of aspirin; Z79.899 Other long term (current) drug therapy
CPT/HCPCS: 36415; 71045; 73502; 73562; 80048; 80076; 83540; 83735; 83880; 84484; 85025; 85027; 87637; 93005; 93971; 94640; 99285; J1650; J2270; J2919

== ENCOUNTER → 2025-06-27 10:22 | Outpatient (BNV) | payer MEDICARE, MEDICAID, SELFPAY | PROVIDERS: Emergency Provider Emergency Medicine; PCP Internal Medicine Geriatric Medicine; Visit Provider Internal Medicine Cardiovascular Disease | DX: R94.31 Abnormal electrocardiogram [ECG] [EKG] (principal); Z95.0 Presence of cardiac pacemaker | CPT/HCPCS: 93010 ==

== ENCOUNTER → 2025-06-27 11:25 | Outpatient (BNV) | payer MEDICARE, MEDICAID, SELFPAY | PROVIDERS: Emergency Provider Emergency Medicine; PCP Internal Medicine Geriatric Medicine; Visit Provider Radiology Diagnostic Radiology | DX: M79.662 Pain in left lower leg (principal); R60.0 Localized edema; M25.462 Effusion, left knee; M85.852 Other specified disorders of bone density and structure, left thigh; M22.8X2 Other disorders of patella, left knee | CPT/HCPCS: 73562; 93971 ==

== ENCOUNTER → 2025-06-27 17:05 | Outpatient (BNV) | payer MEDICARE, MEDICAID, SELFPAY | PROVIDERS: Admitting Provider Student in an Organized Health Care Education/Training Program; Emergency Provider Emergency Medicine; PCP Internal Medicine Geriatric Medicine; Visit Provider Student in an Organized Health Care Education/Training Program | DX: J96.01 Acute respiratory failure with hypoxia (principal); J45.901 Unspecified asthma with (acute) exacerbation | CPT/HCPCS: 99223; 99232; 99233; 99239; 99499 ==